=== PATIENT | female | born 1975 | race Caucasian/White ===

== ENCOUNTER 2024-07-02 22:22 | Outpatient (CLI) | payer OTHER, SELFPAY | END 2024-07-02 22:23 | disposition home or self-care (01) | LOC: AMB 07-05 11:03 | PROVIDERS: Visit Provider Family Medicine | DX: R10.9 Unspecified abdominal pain (principal); R07.89 Other chest pain; R11.10 Vomiting, unspecified | CPT/HCPCS: A0425; A0427 ==

== ENCOUNTER 2024-07-02 23:16 | Inpatient (IN) | payer OTHER, SELFPAY ==
--- OUTSIDE RECORDS SUMMARY | 2006-06-24 10:21 | XMS_ITS | Continuity of Care Document ---
Author Organization GIN Torres Address [address] [facility] [address] [place] [address] Phone Care Team Providers Care Test Examiner Name Role Phone Elizabeth Wang PA-C Unavailable [...] Offic/outpt E&m Estab Low-mod GIN Torres, [address] [facility] [address], [place], [id number], tel:[phone] [facility] No Information Felipe Johnson. [address] [facility] [address], [place], [address], [place]. tel:[phone] Referring Provider: Shaun Berman, [address] [place], [address]. tel:[phone] Offic/outpt E&m Estab Minor 10 GIN Torres, [address] [facility] [address], [place], [id number], tel:[phone] [facility] No Information [address] River [address]. [address] [facility] [place], [facility], . tel:[phone] Referring Provider: TUTU Posada, [address] [facility] [address] [facility] [address], [place], [place], [address], tel:[phone] [facility] No Information 7 River Dunn. [address] , [place], [place], [facility], . tel:[phone] Referring Provider: DARIO BRUCE Offic Cons New/estab Mod-hi 60 Brian [facility], [address], [place], [place], [id number], tel:[phone] [facility] No Information 7 Felipe Johnson. [address] [facility], [address], [place], [address], . tel:[phone] Referring Provider: DARIO BRUCE Family History Family Member Type Diagnosis Age At Onset No Information Payers Payer name Insurance type Covered alliance party ID Authoriza tion(s) [employer] [id number] Social History Type Description Quantity Date Captured [...]
[2024-07-02 23:22] VITALS: BP 114/96; PULSE 68; RESP 16; TEMP 36; O2SAT 94; BMI 30.1
[2024-07-02 23:36] VITALS: RESP 16; O2SAT 89
--- NOTE | 2024-07-02 23:37 | ED_ITS ---
HPI - General Adult General Chief complaint: Abdominal Pain <Rosy Mosley MD - Last Filed: 07/07/24 08:51> Stated complaint: abdominal pain <Rosy Mosley MD - Last Filed: 07/07/24 08:51> Time Seen by Provider: 07/02/24 23:29 <Rosy Mosley MD - Last Filed: 07/07/24 08:51> Source: patient <Rosy Mosley MD - Last Filed: 07/07/24 08:51> Mode of arrival: ambulatory <Rosy Mosley MD - Last Filed: 07/07/24 08:51> Limitations: no limitations <Rosy Mosley MD - Last Filed: 07/07/24 08:51> History of Present Illness HPI narrative: 49-year-old female presenting via EMS secondary to abdominal pain. Patient states she was sitting at home doing nothing approximately 2 hours ago when she developed acute left-sided abdominal pain that came out of nowhere. She describes it as a 10/10. Per EMS the patient was screaming when they arrived and when they tried to move her she had a hypotensive episode with syncope. In the ambulance patient received 100 mcg of fentanyl and 1 mg of Versed. She is now sleepy but arousable. Answers most questions with yes or n o. States that the pain is located in the left-sided the abdomen. Nothing makes it better or worse. She states that [facility] until this happen. Last bowel movement was today and was normal. She vomited after the pain started x2. Denies recent illness. No fevers or chills. No dysuria increased urinary frequency or urgency. Patient states that she feels short of breath. Denies chest pain. States that it hurts to take deep breaths. She denies any recent traveling, is vomit any hormone therapy or control, denies any recent surgery. Denies any personal or family history of blood clots. <Rosy Mosley MD - Last Filed: 07/07/24 08:51> Related Data Home medications: Home Medications ?Medication ?Instructions ?Recorded ?Confirmed No Known Home Medications 07/02/24 05/05/04 <Rosy Mosley MD - Last Filed: 07/07/24 08:51> Allergies/adverse reactions: Allergies Allergy/AdvReac Type Severity Reaction Status Date / Time clarithromycin (From Biaxin) Allergy Verified 07/03/24 02:03 gluten Allergy Verified 07/03/24 02:03 <Rosy Mosley MD - Last Filed: 07/07/24 08:51> Review of Systems Status of ROS: Reports: 10 or more systems reviewed and unremarkable except as noted in History and below <Rosy Mosley MD - Last Filed: 07/07/24 08:51> [facility] Social History: Social History Smoking Status: Never smoker Do you use any of these nicotine containing products: None Second hand tobacco smoke exposure: No How often do you have a drink containing alcohol: never How often do you have six or more drinks on one occasion: Never AUDIT-C Alcohol total score: 0 Non-prescribed substance use: denies use service: No <Rosy Mosley MD - Last Filed: 07/07/24 08:51> Exam Narrative: Exam Narrative: Well-nourished well-developed patient, sleepy, eyes closed. Alert and oriented x3. Answers questions appropriately. HEENT: Normocephalic atraumatic. Pupils are equally round reactive to light. Extraocular muscles are intact. Conjunctivae are moist without any icterus not ed. Moist mucous membranes. Very poor dentition. Film over her tongue. Posterior pharynx is normal. Neck is soft without any lymphadenopathy or thyromegaly. No masses are appreciated. Cardiovascular: Heart is regular rate and rhythm S1 and S2 are present without any murmurs. Lungs: Clear to auscultation bilaterally no wheezes rhonchi or rales are appreciated. Patient takes deep breaths without any discomfort. Abdomen: Soft and nondistended with normal bowel sounds. Patient screams with gentle touch to the epigastric and left upper quadrant. She complains of discomfort in the periumbilical suprapubic and right and left lower quadrants as well. States that the right upper quadrant does not bother her. Extremities: Bilateral lower extremities are without edema. Skin: Well perfused. <Rosy Mosley MD - Last Filed: 07/07/24 08:51> Const: Vital Signs, click to edit/add: Vital Signs - 24 hr 07/02/24 23:22 07/02/24 23:36 07/02/24 23:54 Temperature 96.8 F L Pulse Rate Pulse Rate [Pulse Oximeter] 68 Respiratory Rate 16 16 Blood Pressure Blood Pressure [Le ft Upper Arm] 114/96 H Pulse Oximetry 94 89 95 Oxygen Delivery Me thod Room Air Room Air Oxygen Flow Rate 2 07/03/24 02:35 Temperature Pulse Rate 84 Pulse Rate [Pulse Oximeter] Respiratory Rate 16 Blood Pressure 115/66 Blood Pressure [Le ft Upper Arm] Pulse Oximetry 92 Oxygen Delivery Me thod Oxygen Flow Rate <Rosy Mosley MD - Last Filed: 07/07/24 08:51> Vital Signs, click to edit/add: Vital Signs - 24 hr 07/02/24 23:22 07/02/24 23:36 07/02/24 23:54 Temperature 96.8 F L Pulse Rate Pulse Rate [Pulse Oximeter] 68 Respiratory Rate 16 16 Blood Pressure Blood Pressure [Le ft Upper Arm] 114/96 H Pulse Oximetry 94 89 95 Oxygen Delivery Me thod Room Air Room Air Oxygen Flow Rate 2 07/03/24 02:35 Temperature Pulse Rate 84 Pulse Rate [Pulse Oximeter] Respiratory Rate 16 Blood Pressure 115/66 Blood Pressure [Le ft Upper Arm] Pulse Oximetry 92 Oxygen Delivery Me thod Oxygen Flow Rate <Vitaliy Lawler MD - Last Filed: 07/03/24 04:09> Course Course ED Course: IV is established and 1 L of normal saline is ordered. Labs are drawn. At this time patient's care will be transferred to oncoming physician. <Rosy Mosley MD - Last Filed: 07/07/24 08:51> Reevaluation(s) Reevaluation #1: Patient signed out to Dr. Lawler at midnight on 07/03/2024. He is assuming care. Labs show white count of 13. CT is ordered but not resulted yet. Patient presented with severe abrupt onset left upper quadrant abdominal pain. Was having excruciating pain at home and called EMS. Was syncopal when EMS arrived (thought to be vasovagal). Received 100 mcg of fentanyl and 1 mg Versed for pain per EMS and arrived here with drowsiness and needing nasal cannula. In review of past medical record I see that she was hospitalized about 8 years ago in 2017 at [facility] in [place]. According to those records she has a history of tobacco use, gastritis, migraine headaches. She had an EGD that showed esophagitis and gastritis. 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 EGD note said she had mildly severe esophagitis with no bleeding. There was stigmata of recent bleeding. She also had edema and inflammation in the her stomach and entire duodenum. Lab work came back with a white count of 13.4. Hemoglobin normal at 15.0. Platelet count 281. Differential on the white count showed 59% neutrophils, 33% lymphocytes. D-dimer was abnormal at 0.83. Dr. Mosley had ordered a PE protocol chest CT. Metabolic profile showed hypokalemia with potassium of 2.9 but normal kidney function, normal bicarb, normal sodium. Venous lactic was normal. Juan Luis cium normal. LFTs are normal. Lipase is normal at 54. CRP was less than 0.5. Salicylate, acetaminophen, alcohol levels undetectable. Patient was sent to CT. Dr. Lawler reviewed the images as she was coming back from CT. By my read I think it does show inflammation of the gastric wall and the proximal duodenum. This seems to be a lot of inflammation or possibly fluid around the duodenum. Also a small bubble of free air just anterior to the ventral wall of the stomach near the tip of the liver. She was having recurrence of pain. Dr. Lawler ordered Dilaudid for pain control . Formal read from Radiology came back showing duodenitis and gastritis but did not comment on the free air. Dr. Lawler called Radiology and discussed with the reading radiologist. He reviewed the images and agrees that there is in fact a perforation. I reviewed the imaging findings with the patient and her boyfriend. They verbalized her understanding. She is still uncomfortable but is better after Dilaudid. When we discussed her past medical history says she says she has celiac disease. When I mention her previous admission for gastritis and duodenitis in 2018, she does have a distant recollection of that. She does not really think that she has ongoing trouble with stomach acid. She is not on any prescription stomach acid medicines and does not take any [id number]. Dr. Lawler ordered IV antibiotics and proton pump inhibitor. He contacted General surgery, Dr. Harris. Dr. Harris reviewed the CT images and agrees that this is approved ulcer. Based on the patient's imaging, labs, presentation with severe pain, she does think the patient needs to go to the OR. Patient will be going to the OR here in [facility]. Past surgical history includes hysterectomy and laparoscopy. She last ate at about 8:00 p.m. [facility] with cheese and crackers. Dr. Lawler contacted the overnight hospitalist, Dr. Bethea for medical management after operation. <Vitaliy Lawler MD - Last Filed: 07/03/24 04:09> Vital Signs Vital signs: Initial Vital Signs Temperature 96.8 F L 07/02/24 23:22 Temperature Source Temporal Artery Scan 07/02/24 23:22 Pulse Rate 68 07/02/24 23:22 Pulse Rhythm Regular 07/02/24 23:22 Respiratory Rate 16 07/02/24 23:22 Blood Pressure 114/96 H 07/02/24 23:22 Blood Pressure Mean 102 07/02/24 23:22 Blood Pressure Position Supine 07/02/24 23:22 Pulse Oximetry 94 07/02/24 23:22 Oxygen Delivery Method Room Air 07/02/24 23:22 Vital Signs Temperature 96.8 F L 07/02/24 23:22 Pulse Rate 68 07/02/24 23:22 Respiratory Rate 16 07/02/24 23:22 Blood Pressure 114/96 H 07/02/24 23:22 Pulse Oximetry 94 07/02/24 23:22 Oxygen Delivery Method Room Air 07/02/24 23:22 Temperature 97.8 F 07/07/24 06:22 Pulse Rate 95 07/07/24 01:39 Respiratory Rate 20 07/07/24 01:39 Blood Pressure 147/81 H 07/07/24 01:39 Pulse Oximetry 91 07/07/24 01:39 Oxygen Delivery Method Nasal Cannula 07/07/24 01:39 Oxygen Flow Rate 1.0 07/07/24 01:39 <Rosy Mosley MD - Last Filed: 07/07/24 08:51> Initial Vital Signs Temperature 96.8 F L 07/02/24 23:22 Temperature Source Temporal Artery Scan 07/02/24 23:22 Pulse Rate 68 07/02/24 23:22 Pulse Rhythm Regular 07/02/24 23:22 Respiratory Rate 16 07/02/24 23:22 Blood Pressure 114/96 H 07/02/24 23:22 Blood Pressure Mean 102 07/02/24 23:22 Blood Pressure Position Supine 07/02/24 23:22 Pulse Oximetry 94 07/02/24 23:22 Oxygen Delivery Method Room Air 07/02/24 23:22 Vital Signs Temperature 96.8 F L 07/02/24 23:22 Pulse Rate 68 07/02/24 23:22 Respiratory Rate 16 07/02/24 23:22 Blood Pressure 114/96 H 07/02/24 23:22 Pulse Oximetry 94 07/02/24 23:22 Oxygen Delivery Method Room Air 07/02/24 23:22 Temperature 97.8 F 07/07/24 06:22 Pulse Rate 95 07/07/24 01:39 Respiratory Rate 20 07/07/24 01:39 Blood Pressure 147/81 H 07/07/24 01:39 Pulse Oximetry 91 07/07/24 01:39 Oxygen Delivery Method Nasal Cannula 07/07/24 01:39 Oxygen Flow Rate 1.0 07/07/24 01:39 <Vitaliy Lawler MD - Last Filed: 07/03/24 04:09> Medications Administered Medications: Generic Name Dose Route Start Last Admin Trade Name Freq PRN Reason Stop Dose Admin Hydrocodone Bitart/Acetaminophen 1 - 2 tab 07/03/24 06:31 07/07/24 06:24 Hydrocodone-Acetamin 5-325 Mg 1 Tab PO 1 tab Q4H PRN Administration Pain Enoxaparin Sodium 40 mg 07/04/24 21:00 07/06/24 21:25 Enoxaparin 40 Mg/0.4 Ml Inj SUBCUT 40 mg HS JOSELIN Administration Hydromorphone HCl 0.1 - 0.5 mg 07/03/24 06:31 07/04/24 18:31 Hydromorphone 0.5 Mg/0.5 Ml Inj IVP 0.3 mg Q2H PRN Administration Pain Lactated Ringer's 1,000 mls @ 125 mls/hr 07/03/24 13:05 07/07/24 01:43 Lactated Ringers 1000 Ml IV 125 mls/hr .Q8H JOSELIN Administration Piperacillin Sod/Tazobactam 100 mls @ 100 mls/hr 07/05/24 20:00 07/07/24 08:33 Sod 3.375 gm/ Sodium Chloride IVPB 200 mls/hr Q6H JOSELIN Administration Nicotine 1 patch 07/03/24 15:00 07/06/24 15:01 Nicotine 21 Mg Patch TRANSDERMA 1 patch Q24H JOSELIN Administration Ondansetron HCl 4 - 8 mg 07/03/24 06:31 07/04/24 09:54 Ondansetron 2 Mg/Ml Inj IVP 4 mg Q8H PRN Administration Nausea And Vomiting Pantoprazole Sodium 40 mg 07/03/24 09:00 07/07/24 08:31 Pantoprazole Sodium 40 Mg Inj IVP 40 mg BID JOSELIN Administration Sodium Chloride 250 ml 07/04/24 13:15 07/06/24 14:14 0.9 % Sodium Chloride 250 Ml IV 250 ml Q24H JOSELIN Administration Sodium Chloride 5 ml 07/06/24 21:00 07/07/24 08:31 Sodium Chloride 0.9 % (Flush) 10 Ml Syringe IVF 5 ml BID JOSELIN Administration Discontinued Medications Generic Name Dose Route Start Last Admin Trade Name Freq PRN Reason Stop Dose Admin Hydromorphone HCl 0.5 mg 07/03/24 00:45 07/03/24 02:22 Hydromorphone 0.5 Mg/0.5 Ml Inj IVP 0.5 mg Q1H PRN Administration Pain Sodium Chloride 1,000 mls @ 1,000 mls/hr 07/02/24 23:45 07/03/24 01:53 0.9 % Sodium Chloride 1000 Ml IV 07/03/24 00:44 Infused .Q1H JOSELIN Infusion Potassium Chloride 10 meq in 100 mls @ 100 mls/hr 07/03/24 01:00 07/03/24 06:28 Potassium Chloride IVPB 07/03/24 03:29 Infused Q90M JOSELIN Infusion Piperacillin Sod/Tazobactam 100 mls @ 200 mls/hr 07/03/24 01:30 07/03/24 03:03 Sod 4.5 gm/ Sodium Chloride IVPB 07/03/24 01:31 Infused ONCE ONE Infusion Lactated Ringer's 1,000 mls @ 100 mls/hr 07/03/24 03:00 07/04/24 08:04 Lactated Ringers 1000 Ml IV Infused .Q10H JOSELIN Infusion Lactated Ringer's 1,000 mls @ 100 mls/hr 07/03/24 06:31 07/04/24 08:04 Lactated Ringers 1000 Ml IV Infused .Q10H JOSELIN Infusion Piperacillin Sod/Tazobactam 100 mls @ 100 mls/hr 07/03/24 07:00 07/05/24 22:03 Sod 3.375 gm/ Sodium Chloride IVPB Not Given Q6H JOSELIN Potassium Chloride 10 meq in 100 mls @ 100 mls/hr 07/03/24 13:30 07/03/24 21:37 Potassium Chloride IVPB 07/03/24 18:59 Infused Q90M JOSELIN Infusion Pantoprazole Sodium 80 mg 07/03/24 01:30 07/03/24 02:07 Pantoprazole Sodium 40 Mg Inj IVP 07/03/24 01:31 80 mg ONCE ONE Administration Piperacillin Sod/Tazobactam Sod 3.375 gm 07/03/24 05:51 07/03/24 07:43 Piperacillin/Tazobactam 3.375 Gm Inj IVPB 07/03/24 05:52 Not Given ONCE ONE Potassium Chloride 20 meq 07/03/24 00:30 07/03/24 02:32 Potassium Chloride 10 Meq Capsule Er PO 07/03/24 00:31 Not Given ONCE ONE <Rosy Mosley MD - Last Filed: 07/07/24 08:51> Generic Name Dose Route Start Last Admin Trade Name Freq PRN Reason Stop Dose Admin Hydrocodone Bitart/Acetaminophen 1 - 2 tab 07/03/24 06:31 07/07/24 06:24 Hydrocodone-Acetamin 5-325 Mg 1 Tab PO 1 tab Q4H PRN Administration Pain Enoxaparin Sodium 40 mg 07/04/24 21:00 07/06/24 21:25 Enoxaparin 40 Mg/0.4 Ml Inj SUBCUT 40 mg HS JOSELIN Administration Hydromorphone HCl 0.1 - 0.5 mg 07/03/24 06:31 07/04/24 18:31 Hydromorphone 0.5 Mg/0.5 Ml Inj IVP 0.3 mg Q2H PRN Administration Pain Lactated Ringer's 1,000 mls @ 125 mls/hr 07/03/24 13:05 07/07/24 01:43 Lactated Ringers 1000 Ml IV 125 mls/hr .Q8H JOSELIN Administration Piperacillin Sod/Tazobactam 100 mls @ 100 mls/hr 07/05/24 20:00 07/07/24 08:33 Sod 3.375 gm/ Sodium Chloride IVPB 200 mls/hr Q6H JOSELIN Administration Nicotine 1 patch 07/03/24 15:00 07/06/24 15:01 Nicotine 21 Mg Patch TRANSDERMA 1 patch Q24H JOSELIN Administration Ondansetron HCl 4 - 8 mg 07/03/24 06:31 07/04/24 09:54 Ondansetron 2 Mg/Ml Inj IVP 4 mg Q8H PRN Administration Nausea And Vomiting Pantoprazole Sodium 40 mg 07/03/24 09:00 07/07/24 08:31 Pantoprazole Sodium 40 Mg Inj IVP 40 mg BID JOSELIN Administration Sodium Chloride 250 ml 07/04/24 13:15 07/06/24 14:14 0.9 % Sodium Chloride 250 Ml IV 250 ml Q24H JOSELIN Administration Sodium Chloride 5 ml 07/06/24 21:00 07/07/24 08:31 Sodium Chloride 0.9 % (Flush) 10 Ml Syringe IVF 5 ml BID JOSELIN Administration Discontinued Medications Generic Name Dose Route Start Last Admin Trade Name Freq PRN Reason Stop Dose Admin Hydromorphone HCl 0.5 mg 07/03/24 00:45 07/03/24 02:22 Hydromorphone 0.5 Mg/0.5 Ml Inj IVP 0.5 mg Q1H PRN Administration Pain Sodium Chloride 1,000 mls @ 1,000 mls/hr 07/02/24 23:45 07/03/24 01:53 0.9 % Sodium Chloride 1000 Ml IV 07/03/24 00:44 Infused .Q1H JOSELIN Infusion Potassium Chloride 10 meq in 100 mls @ 100 mls/hr 07/03/24 01:00 07/03/24 06:28 Potassium Chloride IVPB 07/03/24 03:29 Infused Q90M JOSELIN Infusion Piperacillin Sod/Tazobactam 100 mls @ 200 mls/hr 07/03/24 01:30 07/03/24 03:03 Sod 4.5 gm/ Sodium Chloride IVPB 07/03/24 01:31 Infused ONCE ONE Infusion Lactated Ringer's 1,000 mls @ 100 mls/hr 07/03/24 03:00 07/04/24 08:04 Lactated Ringers 1000 Ml IV Infused .Q10H JOSELIN Infusion Lactated Ringer's 1,000 mls @ 100 mls/hr 07/03/24 06:31 07/04/24 08:04 Lactated Ringers 1000 Ml IV Infused .Q10H JOSELIN Infusion Piperacillin Sod/Tazobactam 100 mls @ 100 mls/hr 07/03/24 07:00 07/05/24 22:03 Sod 3.375 gm/ Sodium Chloride IVPB Not Given Q6H JOSELIN Potassium Chloride 10 meq in 100 mls @ 100 mls/hr 07/03/24 13:30 07/03/24 21:37 Potassium Chloride IVPB 07/03/24 18:59 Infused Q90M JOSELIN Infusion Pantoprazole Sodium 80 mg 07/03/24 01:30 07/03/24 02:07 Pantoprazole Sodium 40 Mg Inj IVP 07/03/24 01:31 80 mg ONCE ONE Administration Piperacillin Sod/Tazobactam Sod 3.375 gm 07/03/24 05:51 07/03/24 07:43 Piperacillin/Tazobactam 3.375 Gm Inj IVPB 07/03/24 05:52 Not Given ONCE ONE Potassium Chloride 20 meq 07/03/24 00:30 07/03/24 02:32 Potassium Chloride 10 Meq Capsule Er PO 07/03/24 00:31 Not Given ONCE ONE <Vitaliy Lawler MD - Last Filed: 07/03/24 04:09> Medical Decision Making Lab Data Labs: Lab Results 07/02/24 07/02/24 Range/Units 23:25 23:36 WBC 13.45 H (4.50-11.00) K/uL RBC 4.76 (4.00-5.20) m/uL Hgb 15.0 (12.0-16.0) gm/dL Hct 43.6 (33.0-51.0) % MCV 92 (80-100) fL MCH 32 (26-34) pg MCHC 34 (32-36) gm/dL RDW Coeff of Pati 13.0 (11.5-15.5) % Plt Count 281 (140-440) K/uL Neut % (Auto) 59.3 (42.0-72.0) % Lymph % (Auto) 33.3 (20-44) % Navarro % (Auto) 5.7 (0.0-11.0) % Eos % (Auto) 0.8 (0.0-7.0) % Baso % (Auto) 0.2 (0.0-3.0) % Neut # (Auto) 8.00 H (1.7-7.0) K/uL Lymph # (Auto) 4.50 H (0.90-2.90) K/uL Navarro # (Auto) 0.80 (0.00-0.90) K/UL Eos # (Auto) 0.10 (0.00-0.50) K/uL Baso # (Auto) 0.00 (0.00-0.30) K/uL Abs Immat Gran (auto) 0.10 (0.00-0.30) K/uL Imm/Tot Granulo (auto) 0.7 % Diff Slide Review Acceptable Review (Acceptable) D-Dimer Quant (PE/DVT) 0.83 H (0.00-0.50) ug/ml Sodium 139 (135-149) mmol/L Potassium 2.9 L* (3.6-5.1) mmol/L Chloride 107 (96-114) mmol/L Carbon Dioxide 26 (20-32) mmol/L Anion Gap 6 L (7-15) mEq/L BUN 17 (7-30) mg/dL Creatinine 0.9 (0.5-1.5) mg/dL Estimated Creat Clear 61.17 Estimated GFR 77 ml/min Glucose 134 H (60-115) mg/dL Lactate 1.9 (0.5-1.9) mmol/L Calcium 10.3 (8.4-10.6) mg/dL Magnesium 1.3 L (1.5-2.6) mg/dL Total Bilirubin 0.4 (0.1-1.5) mg/dL Direct Bilirubin 0.3 (0.0-0.5) mg/dL AST 28 (12-35) U/L ALT 25 (4-35) U/L Alkaline Phosphatase 74 (40-150) U/L Troponin I < 0.01 (0.01-0.04) ng/mL C-Reactive Protein < 0.5 L (0.5-1.0) mg/dL Total Protein 6.7 (6.0-8.3) g/dL Albumin 4.0 (3.3-5.0) g/dL Lipase 54 (23-300) U/L Salicylates 7.6 (1.0-10) mg/dL Acetaminophen < 10.0 (10.0-30.0) ug/mL Ethyl Alcohol < 0.01 (0.01-0.03) % POC Troponin I 0.00 L (0.01-0.04) ng/ml <Rosy Mosley MD - Last Filed: 07/07/24 08:51> Lab Results 07/02/24 07/02/24 Range/Units 23:25 23:36 WBC 13.45 H (4.50-11.00) K/uL RBC 4.76 (4.00-5.20) m/uL Hgb 15.0 (12.0-16.0) gm/dL Hct 43.6 (33.0-51.0) % MCV 92 (80-100) fL MCH 32 (26-34) pg MCHC 34 (32-36) gm/dL RDW Coeff of Pati 13.0 (11.5-15.5) % Plt Count 281 (140-440) K/uL Neut % (Auto) 59.3 (42.0-72.0) % Lymph % (Auto) 33.3 (20-44) % Navarro % (Auto) 5.7 (0.0-11.0) % Eos % (Auto) 0.8 (0.0-7.0) % Baso % (Auto) 0.2 (0.0-3.0) % Neut # (Auto) 8.00 H (1.7-7.0) K/uL Lymph # (Auto) 4.50 H (0.90-2.90) K/uL Navarro # (Auto) 0.80 (0.00-0.90) K/UL Eos # (Auto) 0.10 (0.00-0.50) K/uL Baso # (Auto) 0.00 (0.00-0.30) K/uL Abs Immat Gran (auto) 0.10 (0.00-0.30) K/uL Imm/Tot Granulo (auto) 0.7 % Diff Slide Review Acceptable Review (Acceptable) D-Dimer Quant (PE/DVT) 0.83 H (0.00-0.50) ug/ml Sodium 139 (135-149) mmol/L Potassium 2.9 L* (3.6-5.1) mmol/L Chloride 107 (96-114) mmol/L Carbon Dioxide 26 (20-32) mmol/L Anion Gap 6 L (7-15) mEq/L BUN 17 (7-30) mg/dL Creatinine 0.9 (0.5-1.5) mg/dL Estimated Creat Clear 61.17 Estimated GFR 77 ml/min Glucose 134 H (60-115) mg/dL Lactate 1.9 (0.5-1.9) mmol/L Calcium 10.3 (8.4-10.6) mg/dL Magnesium 1.3 L (1.5-2.6) mg/dL Total Bilirubin 0.4 (0.1-1.5) mg/dL Direct Bilirubin 0.3 (0.0-0.5) mg/dL AST 28 (12-35) U/L ALT 25 (4-35) U/L Alkaline Phosphatase 74 (40-150) U/L Troponin I < 0.01 (0.01-0.04) ng/mL C-Reactive Protein < 0.5 L (0.5-1.0) mg/dL Total Protein 6.7 (6.0-8.3) g/dL Albumin 4.0 (3.3-5.0) g/dL Lipase 54 (23-300) U/L Salicylates 7.6 (1.0-10) mg/dL Acetaminophen < 10.0 (10.0-30.0) ug/mL Ethyl Alcohol < 0.01 (0.01-0.03) % POC Troponin I 0.00 L (0.01-0.04) ng/ml <Vitaliy Lawler MD - Last Filed: 07/03/24 04:09> Discharge Plan Discharge Clinical Impression: Perforated gastric ulcer, Duodenitis <Rosy Mosley MD - Last Filed: 07/07/24 08:51> Patient Disposition: XFER to OR <Rosy Mosley MD - Last Filed: 07/07/24 08:51> Condition: Guarded <Rosy Mosley MD - Last Filed: 07/07/24 08:51>
--- OUTSIDE RECORDS SUMMARY | 2024-07-02 23:47 | XMS_ITS | Clinical Summary ---
Author Organization [facility] Address [address] [place] [id number] Care Team Providers Care Supervisor Fabrication And Assembly Name Role Phone Vitaliy Olivas MD Primary Care Provider [phone] Allergies Active Allergy Reactions Criticality Noted Date Comments Clarithromycin Shortness Of Breath 04/24/2010 Medications ondansetron (ZOFRAN ODT) 4 mg disintegrating tabletIndications:E sophagitis Place 1 tablet on the tongue every 6 hours if needed. 15 tablet 1 7 Active SUMAtriptan (IMITREX) 25 mg tabletIndications:M igraine without status migrainosus, not intractable, unspecified migraine type Take 1 tablet by mouth every 2 hours if needed for Migraine. Give at minimum 2hrs apart. Max Dose: 200mg per 24hrs. 15 tablet 1 7 Active pantoprazole (PROTONIX) 40 mg delayed-release tabletIndications:E sophagitis,Gastriti s, presence of bleeding unspecified, unspecified chronicity, unspecified gastritis type Take 1 tablet by mouth 2 times daily before meals. 60 tablet 7 Active pyridoxine, vitamin B6, (VITAMIN B6) 100 mg tabletIndications:M igraine without status migrainosus, not intractable, unspecified migraine type Take 1 tablet by mouth once daily. 30 tablet 7 Active Active Problems Problem Noted Date Diagnosed Date Acute hypokalemia 06/29/2016 Hematemesis with nausea 06/29/2016 Obesity (BMI 30.0-34.9) 06/29/2016 Smoking 06/29/2016 Epigastric pain 06/29/2016 Erosive esophagitis 06/29/2016 Acute alcoholic gastritis 06/29/2016 Duodenitis 06/29/2016 Family History Medical History Relation Name Comments SEA disease Father Heart Disease Father Relation Name Status Comments Father Social History Tobacco Use Types Packs/Day Years Used Date Smoking Tobacco: Every Day Cigarettes Tobacco Cessation:Ready to Q uit: No; Counseling Given: No Alcohol Use Standard Drinks/Week Comments Yes 0 (1 standard drink = 0.6 oz pur e alcohol) Occasional Comments No Sex and Gender Information Value Date Recorded Sex Assigned at Not on file Legal Sex Female 6:51 AM [employer] Gender Identity Not on file Sexual Orientation Not on file Obstetrics History Last Filed Vital Signs Vital Sign Reading Time Taken Comments Blood Pressure 177/112 06/30/2016 8:06 AM CDT Pulse 75 06/30/2016 8:06 AM CDT Temperature 36.5 C (97.7 F) 06/30/2016 8:06 AM CDT Respiratory Rate 16 06/30/2016 8:06 AM CDT Oxygen Saturation 92% 06/30/2016 8:06 AM CDT Inhaled Oxygen Concentration - - Weight 79.4 kg (175 lb) 06/29/2016 11:17 PM CDT Height 160 cm (5' 3) 06/29/2016 11:17 PM CDT Body Mass Index 31 06/29/2016 11:17 PM CDT Plan of Treatment Health Maintenance Due Date Last Done Comments Tdap 1984 Depression screening for age 12+ 1985 HIV for age 15-65 1988 Hepatitis C screening for age 18-79 05/11/1991 Hepatitis B series for 19+ ( 1 of 3 - 19+ 3-dose series) 1992 Tetanus booster 1993 Pap test for age 21-65 1994 BMI (ht and wt on same day) for age 18+ 06/29/2017 0 06/29/2016, 06/28/2016 Colonoscopy through age 75 2018 Lipids for age 45-75 2018 Mammogram for age 45-75 2018 Pneumococcal series for age 50+ (1 of 1 - PCV) 05/11/2023 Zoster (shingles) series for age 50+ (1 of 2) 05/11/2023 COVID-19 vaccine series ( - 2023- season) 2023 Influenza Vaccine (Season Ended) 2024 Insurance [employer] Advance Directives * Full Code (Latest Code Status on File) Date Activated Date Inactivated Comments 06/30/2016 12:08 AM 06/30/2016 1:16 PM * Full Code Date Activated Date Inactivated Comments 06/29/2016 3:37 AM 06/29/2016 11:26 PM Care Teams Supervisor Fabrication And Assembly Relationship Specialty Start Date End Date Vitaliy Olivas MD PCP - General Family Practice 04/14/12
--- OUTSIDE RECORDS SUMMARY | 2024-07-02 23:47 | XMS_ITS | Clinical Summary ---
Author Organization [facility] Address [address] [place] [id number] Care Team Providers Care Composition Teacher Name Role Phone [facility] Primary Care [facility] er Michael Franco MD Unavailable [phone] Allergies Active Allergy Reactions Criticality Noted Date Comments Clarithromycin Other (See Comments),Shortness Of Breath High 04/24/2010 Shortness of breath Leuprolide Other (See Comments) 01/24/2016 Shortness of breath and hives Medications benzonatate (TESSALON) 100 MG capsuleIndicatio ns:Infection due to 2019 novel coronavirus Take 1-2 capsules by mouth up to 3 times daily as needed for cough. 30 capsule 3 Active albuterol (PROAIR HFA/PROVENTIL HFA/VENTOLIN HFA) 108 (90 Base) MCG/ACT inhalerIndicatio ns:Infection due to 2019 novel coronavirus Inhale 2 puffs into the lungs every 4 hours as needed for shortness of breath or wheezing 18 g 3 Active Active Problems Problem Noted Date Diagnosed Date Acute alcoholic gastritis 06/29/2016 Nicotine dependence, unspecified, uncomplicated 06/29/2016 Immunizations Immunization Administration Dates Next Due DT (PEDS <7y) 11/09/1992 Influenza (IIV3) PF 12/01/2013 Nasal Influenza Vaccine 2-49 (FluMist) 3 Social History Tobacco Use Types Packs/Day Years Used Date Smoking Tobacco: Every Day Smokeless Tobacco: Never Alcohol Use Standard Drinks/Week Comments Yes 0 (1 standard drink = 0.6 oz pur e alcohol) Adolescent Education Answer Date Record ed Getting School Help Needed Not on file 11/17 Comments No Sex and Gender Information Value Date Recorded Sex Assigned at Not on file Legal Sex Female 3:14 AM ICD 9 CODER Gender Identity Not on file Sexual Orientation Not on file Last Filed Vital Signs Vital Sign Reading Time Taken Comments Blood Pressure 120/66 07/17/2021 5:47 PM CDT Pulse 92 07/17/2021 5:47 PM CDT Temperature 36.8 C (98.3 F) 07/17/2021 5:47 PM CDT Respiratory Rate 16 07/17/2021 5:47 PM CDT Oxygen Saturation 96% 07/17/2021 5:47 PM CDT Inhaled Oxygen Concentration - - Weight 86.2 kg (190 lb) 07/17/2021 5:47 PM CDT Height - - Body Mass Index - - Plan of Treatment Health Maintenance Due Date Last Done Comments ADVANCE CARE PLANNING 1973 ANNUAL REVIEW OF HM ORDERS 1973 CT COLONOGRAPHY 1973 FIT 1973 FLEX SIG 1973 MAMMO SCREENING 1973 sDNA (Cologuard) 1973 YEARLY PREVENTIVE VISIT 1976 HIV SCREENING 1988 HEPATITIS C SCREENING 05/11/1991 HEPATITIS B IMMUNIZATION (1 of 3 - 19+ 3-dose series) 1992 Pneumococcal Vaccine: 50+ Years (1 of 2 - PCV) 1992 PAP 1994 DTAP/TDAP/TD IMMUNIZATION (1 - Tdap) 1998 DIABETES SCREENING 04/19/2013 04/19/2010, 07/21/2009 LIPID 2013 LUNG CANCER SCREENING 05/11/2023 ZOSTER IMMUNIZATION (1 of 2) 05/11/2023 COVID-19 Vaccine (3 - 2023-2 5 season) 2023 01/05/2021, 05/18/2020 PHQ-2 (once per calendar year) 2024 INFLUENZA VACCINE (Season Ended) 2024 12/01/2013, 11/10/2012 COLONOSCOPY 07/27/2026 07/27/2016 COLORECTAL CANCER SCREENING 07/27/2026 HPV IMMUNIZATION Aged Out No longer e ligible based on patient's age to complete this topic MENINGITIS IMMUNIZATION Aged Out No l onger eligible based on patient's age to complete this topic Procedures Procedure Name Priority Date/Time Associated Diagnosis Comments BASIC METABOLIC PANEL STAT 04/19/2010 4:16 PM ICD 9 CODER from Last 3 Months or Most Recently Relevant to Health Maintenance Results * Basic metabolic panel (04/19/2010 4:16 PM ICD 9 CODER) Sodium 140 133 - 144 mmol/L MISYS Potassium 3.7 3.4 - 5.3 mmol/L MISYS Chloride 102 94 - 109 mmol/L MISYS Carbon Dioxide 28 20 - 32 mmol/L MISYS Glucose 89 60 - 99 mg/dL MISYS Urea Nitrogen 8 5 - 24 mg/dL MISYS Creatinine 0.91 0.52 - 1.04 mg/dL MISYS GFR Estimate 70 >60 mL/min/1.7 m2 MISYS GFR Estimate If Black 85 >60 mL/min/1.7 m2 MISYS Calcium 9.5 8.5 - 10.4 mg/dL MISYS Anion Gap 10 6 - 17 mmol/L MISYS 04/19/2010 4:16 PM ICD 9 CODER 04/19/2010 4:10 PM ICD 9 CODER us Saul Ceron MD LAB - BLOOD ORDERABLES An gonzales Result MISYS from Last 3 Months or Most Recently Relevant to Health Maintenance Insurance [facility] [employer]Creat[employer] Care Teams Composition Teacher Relationship Specialty Start Date End Date Clinic, [facility] [address] [place] [id number] PCP - General 07/07/19 Michael Franco MD [address] [place] [id number] Assigned PCP 07/19/21
[2024-07-02 23:53] LABS: Basophils Percent Auto 0.2 % (0.0-3.0); Eosinophils Percent Auto 0.8 % (0.0-7.0); Hematocrit 43.6 % (33.0-51.0); Immature Granulocytes Pct Auto 0.7 %; Lymphocytes Percent Auto 33.3 % (20-44); Mean Corpuscular HGB Conc 34 gm/dL (32-36); Mean Corpuscular Hemoglobin 32 pg (26-34); Mean Corpuscular Volume 92 fL (80-100); Monocytes Percent Auto 5.7 % (0.0-11.0); Neutrophils Percent Auto 59.3 % (42.0-72.0); Platelet Count* 281 K/uL (140-440); Red Blood Count 4.76 m/uL (4.00-5.20); Slide Review Reflex Yes; White Blood Count* 13.45 K/uL (4.50-11.00)
[2024-07-02 23:54] VITALS: O2SAT 95
[2024-07-02 23:55] LABS: Lactate* 1.9 mmol/L (0.5-1.9)
[2024-07-03] VITALS (23 sets, daily range): BP systolic 103–140; BP diastolic 60–87; PULSE 84–107; RESP 13–16; TEMP 35.9–36.6; O2SAT 82–103
--- NOTE | 2024-07-03 00:07 | CRLHL7_ITS ---
For Patients: As a result of the Century Cures Act, medical imaging exams and procedure reports are released immediately into your electronic medical record. You may view this report before your referring provider. If you have questions, please contact your health care provider. INDICATION: Severe left abdominal pain. TECHNIQUE: CT abdomen and pelvis acquired with 83 cc Isovue 370 IV contrast. COMPARISON: None. FINDINGS: Lower chest: Respiratory motion artifact limits evaluation of the lung bases. No definite acute abnormalities. Liver: Unremarkable. Normal in size and attenuation. No suspicious masses. Gallbladder and bile ducts: Cholelithiasis no biliary dilatation. Pancreas: Unremarkable. No mass or inflammation. Spleen: Unremarkable. Normal in size. No masses. Adrenal glands: Unremarkable. No nodules. Kidneys: Unremarkable. No suspicious masses, stones, or hydronephrosis. GI tract: Moderate wall thickening and mucosal hyperenhancement of the distal stomach and proximal duodenum with the superiorly projecting focal outpouching along the pyloric region which measures approximately 1.8 x 1.2 cm (4/53). The remainder of the bowel is normal in caliber without evidence of obstruction. Vasculature: Abdominal aorta is normal in caliber. Mesenteric arteries are patent. Lymph nodes: No lymphadenopathy. Peritoneum/Abdominal Wall: Unremarkable. No sign of mass or infiltration. No free air. Small volume free fluid. Pelvis: Unremarkable. Bones: Unremarkable for age. IMPRESSION: Moderate inflammatory changes of the distal stomach and proximal duodenum with a small focal outpouching along the pyloric region that measures 1.8 cm, favored to reflect peptic ulcer disease. There is small volume ascites, but no evident pneumoperitoneum to indicate a perforation. Please note that all CT scans at this facility use dose modulation, iterative reconstruction, and/or weight-based dosing when appropriate to reduce radiation dose to as low as reasonably achievable. Dictated by Conrad Rush MD @ 07/03/2024 1:24:11 AM (Electronically Signed)
[2024-07-03 00:08] LABS: Chloride* 107 mmol/L (96-114)
[2024-07-03 00:09] LABS: Sodium* 139 mmol/L (135-149)
[2024-07-03 00:11] LABS: Alanine Aminotransferase* 25 U/L (4-35); Anion Gap 6 mEq/L (7-15); Aspartate Amino Transferase* 28 U/L (12-35); Blood Urea Nitrogen* 17 mg/dL (7-30); Carbon Dioxide* 26 mmol/L (20-32); Creatinine* 0.9 mg/dL (0.5-1.5); Est. Creatinine Clearance* 61.17; Estimated Glomerular Filt Rate 77 ml/min
[2024-07-03 00:12] LABS: Alkaline Phosphatase* 74 U/L (40-150); Bilirubin Direct* 0.3 mg/dL (0.0-0.5); Bilirubin Total* 0.4 mg/dL (0.1-1.5); Calcium* 10.3 mg/dL (8.4-10.6); Glucose* 134 mg/dL (60-115); Lipase* 54 U/L (23-300); Salicylate* 7.6 mg/dL (1.0-10); Total Protein* 6.7 g/dL (6.0-8.3)
[2024-07-03 00:13] LABS: D Dimer Quantitative* 0.83 ug/ml (0.00-0.50)
[2024-07-03 00:15] LABS: Acetaminophen* < 10.0 ug/mL (10.0-30.0); C Reactive Protein* < 0.5 mg/dL (0.5-1.0); Ethanol* < 0.01 % (0.01-0.03)
[2024-07-03 00:16] LABS: Potassium* 2.9 mmol/L (3.6-5.1)
[2024-07-03] MEDS: 0.9 % SODIUM CHLORIDE 1000 ml 1,000 ML IV (00:50)
[2024-07-03] MEDS: HYDROmorphone 0.5 mg/0.5 ml inj IVP ×6 (00:50→20:32)
[2024-07-03 00:51] LABS: Troponin I* < 0.01 ng/mL (0.01-0.04)
[2024-07-03] MEDS: POTASSIUM CHLORIDE 10 MEQ/100 ML PIGGYBACK 100 MEQ IVPB ×6 (01:01→17:57)
[2024-07-03] MEDS: PANTOPRAZOLE SODIUM 40 MG INJ 80 MG IVP (02:07)
[2024-07-03] MEDS: PIPERACILLIN/TAZOBACTAM 4.5 GM in 0.9 % SODIUM CHLORIDE Mini-bag 100 ML IVPB (02:22)
--- NOTE | 2024-07-03 02:42 | P.GSHP_ITS ---
History of Present Illness History of Present Illness Date Seen: 07/03/24 Chief complaint: abdominal pain Narrative: Madhavi Bertrand is a 49 year old female who presented to the emergency department with sudden severe abdominal pain. The pain started shortly after 8:00 p.m. and came out of the blue. She has never had pain this worse. The pain is in the middle of her abdomen. She does report associated nausea and vomiting. No diarrhea or constipation. No fevers at home. She has a history of gastritis and duodenitis in 2018 with hospitalization and upper endoscopy performed at that time. She denies drinking alcohol. She is an everyday smoker. She does take a medication regularly for headaches. Her medical history is significant for celiac disease. She does not take medications on a daily basis. Her abdominal surgical history is positive for a hysterectomy. Review of Systems Status of ROS: Reports: 10 or more systems reviewed and unremarkable except as noted in History and below [facility] Social History Smoking Status: Never smoker Do you use any of these nicotine containing products: None Second hand tobacco smoke exposure: No How often do you have a drink containing alcohol: never How often do you have six or more drinks on one occasion: Never AUDIT-C Alcohol total score: 0 Non-prescribed substance use: denies use service: No Meds Home Medications and Allergies Home Medications ?Medication ?Instructions ?Recorded ?Confirmed ?Type No Known Home Medications 07/02/2406/11 History Allergies Allergy/AdvReac Type Severity Reaction Status Date / Time clarithromycin (From Biaxin) Allergy Verified 07/03/24 02:03 gluten Allergy Verified 07/03/24 02:03 Exam Narrative: Exam Narrative: General: Alert and oriented, is sleepy after getting pain medicine but able to consent. Nontoxic in appearance Respiratory: Equal breath rise, oxygenating well on 2 L through nasal cannula. CV: Well perfused, no tachycardia Abdomen: Soft, tender to palpation in the epigastric with guarding and rebound Const: Vital Signs, click to edit/add: Vital Signs - 24 hr 07/02/24 23:22 07/02/24 23:36 07/02/24 23:54 Temperature 96.8 F L Pulse Rate Pulse Rate [Pulse Oximeter] 68 Respiratory Rate 16 16 Blood Pressure Blood Pressure [Le ft Upper Arm] 114/96 H Pulse Oximetry 94 89 95 Oxygen Delivery Me thod Room Air Room Air Oxygen Flow Rate 2 07/03/24 02:35 Temperature Pulse Rate 84 Pulse Rate [Pulse Oximeter] Respiratory Rate 16 Blood Pressure 115/66 Blood Pressure [Le ft Upper Arm] Pulse Oximetry 92 Oxygen Delivery Me thod Oxygen Flow Rate Results Results Labs: Leukocytosis (13.4), potassium is low on BMP of 2.9, CRP less than 0.5. Troponin negative. D-dimer is elevated slightly at 0.[address] scan report/results: report reviewed and image reviewed Progress Note:A&P Assessment and plan (1) Perforated gastric ulcer: Status: Acute Assessment and Plan: Patient is a 49-year-old female who presents with sudden onset severe abdominal pain. Workup was obtained with evidence of leukocytosis and CT scan showing inflammation of the distal stomach, pylorus and duodenum. There is fluid around this area in a few foci of pneumoperitoneum indicating a perforation. On exam patient is peritoneal. Recommendations are to proceed to the operating room for evaluation and repair. I discussed with the patient my plan for diagnostic laparoscopy, possible Kalyan patch, possible conversion to open. Risks and benefits of the procedure were discussed at length with the patient. All questions and concerns were addressed with patient agreeing to proceed. -Zosyn to be given preoperatively -NPO -OR for diagnostic laparoscopy, possible Kalyan patch, possible conversion to open
[2024-07-03] MEDS: LACTATED RINGERS 1000 ML 1,000 ML 100 ML IV ×3 (03:11→12:20)
[2024-07-03 04:30] LABS: Slide Review Acceptable Review (Acceptable)
--- NOTE | 2024-07-03 05:38 | P.GSOP_ITS ---
Operative Note Date of procedure: 07/03/24 Pre-op diagnosis: Perforated ulcer Post-op diagnosis: Gastric ulcer perforation Type of Procedure: 1. Diagnostic laparoscopy 2. Conversion of open with Kalyan patch Indications: Patient is a 49-year-old female who presented to the emergency department with clinical workup and CT scan demonstrating perforation with intra-abdominal free air. There was inflammation of the distal stomach and duodenum, concerning for ulcer. Recommendations were to proceed emergently to the operating room. Risks and benefits were discussed at length with the patient. Risks included, but were not limited to: Bleeding, infection, risk of damage to surrounding structures and possible seizures. All questions and concerns were addressed with patient agreeing to proceed. Procedure Description: After discussing the risks and benefits of the procedure, the patient signed informed consent.? The operative site was marked and the patient was brought to the operating room and placed on the operating table in supine position.? Care was taken to pad the patient's pressure points.?? The patient was then intubated by anesthesia.?? The operative site was then prepped and draped in the usual sterile fashion.? A time-out was then performed. A 5 mm Visiport was used to enter the abdomen in the left upper quadrant. Upon entering the abdomen presence of fibrinous exudate and bile tinged succus in the upper quadrants. The abdomen was briefly surveyed with no evidence of injury upon entry. CO2 was used for insufflation. An additional 5 mm port was placed supraumbilical and in the right upper quadrant. The patient was placed in reverse Trendelenburg position with right side up. The succus was suctioned and gentle irrigation used to remove the overlying fibrinous exudate. A laparoscopic liver retractor was placed through the right upper quadrant port an d used to gently retract the overlying liver. With retraction inflammation of the distal stomach, pylorus and the 1st portion of the duodenum was identified. With gentle irrigation a large gastric ulcer was identified pre pyloric, 1.5 cm in size. Biopsies were obtained from the edge and within the ulcer bed to be sent to pathology. An additional 5 mm port was placed in the right lower quadrant. The 5 mm supraumbilical port was also switched for an 11 mm port. Using the Endo Stitch suture was placed on either side of the gastric ulcer. However, due to the friable nature of the tissue it was difficult to obtain an adequate bite and the tissue was unable to come together. The decision was then made to convert to an open operation. Patient was placed in a supine position. Laparoscopic equipment was taken off of the operative field. The laparoscopic liver retractor was also removed. A 8 cm supraumbilical midline incision was made with a 15 blade scalpel. Dissection was carried through subcutaneous tissue with cautery. The fascia was identified and incised with cautery at the midline. The abdomen was then entered and the CO2 insufflation evacuated. A medium Ryan wound retractor was placed into the abdomen. The patient was then placed reverse Trendelenburg. Using a malleable for retraction, the edge of the liver was gently retracted cephalad. The omentum overlying the stomach was packed into the lower abdomen. A [place] was used to grasp the greater curvature of the stomach and retract caudad. The pre pyloric ulcer was again identified. Using 3-0 silk pop-off sutures I did try to close the defect primarily. Again because of the friable nature of the tissue the sutures did not hold and I was unable to perform a primary closure. A piece of omentum was then chosen to perform a Kalyan patch. Using several 3-0 silk pop-off sutures the omentum was secured in place to the stomach with full- thickness interrupted sutures over the entire defect. Several additional silk pop-off sutures were also used to adhere the omentum to the stomach and prevent any tension or retraction of the repair. An NG tube was placed by Anesthesia and palpated within the body of the stomach. A leak test was then performed by filling the upper cavity with warm saline, applying compression to the duodenum and having anesthesia instill air into the NG tube. No leak was identified. The abdomen was then irrigated with a copious amount of warm saline. A 15 Amharic EDGAR drain was placed through the previous port site in the right upper quadrant with the drain lying over the repair. The drain was secured to the abdomen with 2 0 nylon suture. The midline incision was closed with two running looped 0 Maxon sutures. The wound was irrigated with warm saline. Skin nora were applied. The remaining port sites were closed with 4-0 Monocryl suture. Sterile dressings were applied. ? The patient was then woken and transported to the recovery area in stable condition. ? The patient tolerated the procedure well. Findings: Gastric ulcer perforation, measuring 1.5 cm in size. Closed with an omental patch. Anesthesia: GETA Surgeon: Katie Harris MD Estimated blood loss (mL): 15 Additional Specimen Information: Gastric ulcer biopsy Condition: stable Disposition: PACU
--- NOTE | 2024-07-03 05:54 | P.ANES_ITS ---
Anesthesia Charges Start Date/Time Anesthesia Start Date: 07/03/24 Anesthesia Start Time: 03:11 Stop Date/Time Anesthesia Stop Date: 07/03/24 Anesthesia Stop Time: 05:48 Summary Emergency: CLASSROOM INSTRUCTOR Coding CPT Codes CPT Codes: ANESTH SURG UPPER ABDOMEN - 34252 ([id number]) P2 - PATIENT W/MILD SYST DISEASE, QZ - CLASSROOM INSTRUCTOR SVC W/O CYLINDER HONER BY Additional Codes: Summary - Emergency: CLASSROOM INSTRUCTOR ([id number])
--- NOTE | 2024-07-03 05:54 | W.ANESCHARGE ---
Anesthesia Charges Start Date/Time Anesthesia Start Date: 07/03/24 Anesthesia Start Time: 03:11 Stop Date/Time Anesthesia Stop Date: 07/03/24 Anesthesia Stop Time: 05:48 Summary Emergency: PRODUCTION MANUFACTURING WORKER Coding CPT Codes CPT Codes: ANESTH SURG UPPER ABDOMEN - 21464 ([id number]) P2 - PATIENT W/MILD SYST DISEASE, QZ - PRODUCTION MANUFACTURING WORKER SVC W/O PATIENT RELATIONS COORDINATOR BY Additional Codes: Summary - Emergency: PRODUCTION MANUFACTURING WORKER ([id number])
[2024-07-03] MEDS: ONDANSETRON 2 MG/ML inj IVP ×2 (06:39→13:16)
[2024-07-03] MEDS: PIPERACILLIN/TAZOBACTAM 3.375 GM in 0.9 % SODIUM CHLORIDE Mini-bag 100 ML IVPB ×3 (07:53→19:26)
[2024-07-03] MEDS: PANTOPRAZOLE SODIUM 40 MG INJ IVP ×2 (09:53→20:32)
--- NOTE | 2024-07-03 11:36 | RESP.RT ---
Pt seen. Remains on low flow oxygn via NC. SPO2 93% Pt is a smoker. Worked with IS,coughing and deep breathing. 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 Worked on splinting with cough. PT reports feeling better after coughing. She thought she should not cough, that it might hurt something Explained that it is good to cough, and reasons for it. She understands and states she will not surpress cough.
[2024-07-03] MEDS: NICOTINE 21 MG PATCH 1 PATCH TRANSDERMA (15:16)
[2024-07-03 16:12] LABS: Magnesium* 1.3 mg/dL (1.5-2.6)
--- NOTE | 2024-07-03 18:57 | PC.NURSE ---
Shift Summary 15-19: Patient pleasant and cooperative. Up with one assist, gait belt, pivot to BSC. Pain managed with PRN medication see MAR. O2 @ 2L/NC. 20cc out in EDGAR drain, 50cc out in NG. Continues to be NPO. Nicotine patch left shoulder. Dressing C/D/I.
[2024-07-03 19:09] LABS: Basophils Percent Auto 0.1 % (0.0-3.0); Hematocrit 41.8 % (33.0-51.0); Hemoglobin* 14.2 gm/dL (12.0-16.0); Immature Granulocytes Pct Auto 0.1 %; Lymphocytes Percent Auto 12.5 % (20-44); Mean Corpuscular HGB Conc 34 gm/dL (32-36); Mean Corpuscular Hemoglobin 31 pg (26-34); Mean Corpuscular Volume 93 fL (80-100); Monocytes Percent Auto 8.3 % (0.0-11.0); Platelet Count* 219 K/uL (140-440); RDW Coefficient of Variation % 13.2 % (11.5-15.5); Red Blood Count 4.52 m/uL (4.00-5.20); White Blood Count* 15.23 K/uL (4.50-11.00)
[2024-07-03 19:19] LABS: Slide Review Reflex No
[2024-07-03 19:21] LABS: Chloride* 108 mmol/L (96-114)
[2024-07-03 19:22] LABS: Potassium* 4.6 mmol/L (3.6-5.1); Sodium* 136 mmol/L (135-149)
[2024-07-03 19:25] LABS: Anion Gap 2 mEq/L (7-15); Blood Urea Nitrogen* 15 mg/dL (7-30); Calcium* 8.8 mg/dL (8.4-10.6); Carbon Dioxide* 26 mmol/L (20-32); Creatinine* 0.8 mg/dL (0.5-1.5); Est. Creatinine Clearance* 68.82; Estimated Glomerular Filt Rate 89 ml/min; Glucose* 126 mg/dL (60-115); Magnesium* 1.7 mg/dL (1.5-2.6)
[2024-07-03] MEDS: LACTATED RINGERS 1000 ML 1,000 ML 125 ML IV (21:31)
[2024-07-04] MEDS: HYDROmorphone 0.5 mg/0.5 ml inj IVP ×5 (00:09→18:31)
[2024-07-04] MEDS: PIPERACILLIN/TAZOBACTAM 3.375 GM in 0.9 % SODIUM CHLORIDE Mini-bag 100 ML IVPB ×4 (00:49→18:32)
[2024-07-04 02:09] VITALS: BP 110/72; PULSE 92; RESP 16; TEMP 36.6; O2SAT 94
[2024-07-04] MEDS: LACTATED RINGERS 1000 ML 1,000 ML 125 ML IV ×3 (05:49→23:02)
--- NOTE | 2024-07-04 06:39 | PC.NURSE ---
Shift note: Patient ambulated with SBA to bedside commode. Oxygen delivered via NC at 2L throughout the night. EDGAR tube drained about 30ml of bloody discharge. NG tube intact at 57cm connected to intermittent suction. Drained about 100ml of greenish GI content. NPO status is maintained. Ice pack applied to the abdomen. Dressing intact, dry and clean. Pain has been between 2 and 5. Hypoactive bowel sound. Patient denied passing gas.
[2024-07-04 06:55] LABS: Basophils Percent Auto 0.2 % (0.0-3.0); Eosinophils Percent Auto 0.2 % (0.0-7.0); Hematocrit 41.4 % (33.0-51.0); Hemoglobin* 13.6 gm/dL (12.0-16.0); Immature Granulocytes Pct Auto 0.9 %; Lymphocytes Percent Auto 15.7 % (20-44); Mean Corpuscular HGB Conc 33 gm/dL (32-36); Mean Corpuscular Hemoglobin 31 pg (26-34); Mean Corpuscular Volume 94 fL (80-100); Monocytes Percent Auto 8.8 % (0.0-11.0); Neutrophils Percent Auto 74.2 % (42.0-72.0); Platelet Count* 224 K/uL (140-440); RDW Coefficient of Variation % 13.3 % (11.5-15.5); Red Blood Count 4.39 m/uL (4.00-5.20); White Blood Count* 12.99 K/uL (4.50-11.00)
[2024-07-04 07:04] LABS: Slide Review Reflex No
[2024-07-04 07:27] LABS: Chloride* 105 mmol/L (96-114); Sodium* 136 mmol/L (135-149)
[2024-07-04 07:28] LABS: Potassium* 4.1 mmol/L (3.6-5.1)
[2024-07-04 07:30] LABS: Blood Urea Nitrogen* 14 mg/dL (7-30); Creatinine* 0.8 mg/dL (0.5-1.5); Est. Creatinine Clearance* 68.82; Estimated Glomerular Filt Rate 89 ml/min
[2024-07-04 07:31] LABS: Anion Gap 2 mEq/L (7-15); Calcium* 8.9 mg/dL (8.4-10.6); Carbon Dioxide* 29 mmol/L (20-32); Glucose* 104 mg/dL (60-115)
[2024-07-04 07:35] VITALS: BP 128/70; PULSE 96; RESP 16; RESP 2; TEMP 36.7; O2SAT 96
[2024-07-04] MEDS: PANTOPRAZOLE SODIUM 40 MG INJ IVP ×2 (09:07→20:28)
[2024-07-04] MEDS: ONDANSETRON 2 MG/ML inj IVP (09:54)
--- NOTE | 2024-07-04 09:57 | PM.GSPN ---
Subjective Subjective Date Seen: 07/04/24 Interval history: Patient is doing well this morning. Feels soreness at her incision sites, this is being well controlled with medicine. Was able to walk the ibarra for the 1st time this morning. Not feeling hungry. Not yet passing gas. Denies any nausea. Exam Narrative: Exam Narrative: General: Alert and oriented, no acute distress HEENT: NG tube in place, bile tinged output Abdomen: Dressings removed. Upper midline incision with nora in place clean/dry/intact. Steri-Strips over port sites. Right upper quadrant with some output involved, fluid is slightly murky but improved compared to yesterday, serous with no evidence of bile Const: Vital Signs, click to edit/add: Vital Signs - 24 hr 07/03/24 10:30 07/03/24 11:30 07/03/24 12:30 Temperature 98 F Pulse Rate 98 92 92 Pulse Rate [Pulse Oximeter] Respiratory Rate 16 16 16 Blood Pressure 123/68 124/73 128/84 Blood Pressure [Ri ght Arm] Pulse Oximetry 95 103 H 93 Oxygen Delivery Me thod Blow By Blow By Nasal Cannula Oxygen Flow Rate 3 3 2 07/03/24 16:00 07/03/24 16:00 07/03/24 19:00 Temperature 96.9 F L 97.7 F Pulse Rate Pulse Rate [Pulse Oximeter] 93 91 Respiratory Rate 16 16 16 Blood Pressure Blood Pressure [Ri ght Arm] 107/63 119/74 Pulse Oximetry 93 93 94 Oxygen Delivery Me thod Nasal Cannula Nasal Cannula Nasal Cannula Oxygen Flow Rate 2 2 2 07/03/24 23:00 07/03/24 23:00 07/03/24 23:00 Temperature 98 F Pulse Rate Pulse Rate [Pulse Oximeter] 91 91 Respiratory Rate 16 16 16 Blood Pressure Blood Pressure [Ri ght Arm] 112/81 Pulse Oximetry 92 92 Oxygen Delivery Me thod Nasal Cannula Nasal Cannula Oxygen Flow Rate 2 2 07/04/24 02:09 07/04/24 07:35 07/04/24 07:35 Temperature 97.8 F 98.1 F Pulse Rate Pulse Rate [Pulse Oximeter] 92 96 Respiratory Rate 16 2 L 16 Blood Pressure Blood Pressure [Ri ght Arm] 110/72 128/70 Pulse Oximetry 94 96 96 Oxygen Delivery Me thod Nasal Cannula Nasal Cannula Nasal Cannula Oxygen Flow Rate 2 2 Labs/Imaging Labs Labs: Leukocytosis trending down (15--12) Imaging Imaging: No new imaging Progress Note:A&P Assessment and plan (1) Perforated gastric ulcer: Status: Acute Assessment and Plan: Patient is postop day 1 diagnostic laparoscopy with conversion to open in Kalyan patch repair for a gastric ulcer perforation. Doing well postoperatively. Vital signs stable and afebrile overnight. Her leukocytosis is trending down. She continues on IV antibiotics, Zosyn. Right upper quadrant drain in place, fluid is still murky in appearance but no evidence of bile in drainage. -NPO, continue NG tube to low intermittent suction -will plan for a Gastrografin study tomorrow through the NG tube to evaluate for a leak - IV and po pain meds as needed - continue IV protonix, 40 mg BID - IV Zosyn, will plan to transition to orals when able. Biopsies of the ulcer are pending but will plan for treatment of H pylori for presumed infection -encourage ambulation -SCDs and Lovenox for DVT prophylaxis
[2024-07-04 11:00] VITALS: BP 124/71; PULSE 99; RESP 18; TEMP 36.7; O2SAT 94
[2024-07-04] MEDS: 0.9 % SODIUM CHLORIDE 250 ml IV (13:33)
[2024-07-04 15:00] VITALS: BP 123/74; PULSE 99; RESP 18; TEMP 36.6; O2SAT 93
[2024-07-04] MEDS: NICOTINE 21 MG PATCH 1 PATCH TRANSDERMA (15:00)
--- NOTE | 2024-07-04 17:25 | PC.NURSE ---
Shift Summary: Patient pleasant and cooperative. Up with SBA and gait belt. Vitals stable and WNL. Pain managed with ice and PRN medication see APR. Dressings C/D/I. NG to low intermittent suction. Up in halls ambulating with staff. Continues to be NPO. Still requiring o2 @ 2L/NC. Denied passing gas or stool.
[2024-07-04 19:00] VITALS: BP 140/79; PULSE 105; RESP 18; TEMP 36.8; O2SAT 90
[2024-07-04] MEDS: ENOXAPARIN 40 MG/0.4 ML INJ SUBCUT (20:27)
[2024-07-04] MEDS: HYDROCODONE-ACETAMIN 5-325 MG 1 TAB PO (20:28)
[2024-07-04 22:50] VITALS: BP 123/79; PULSE 104; RESP 16; TEMP 36.8; O2SAT 91
[2024-07-05] VITALS (8 sets, daily range): BP systolic 136–168; BP diastolic 79–93; PULSE 93–108; RESP 18–22; TEMP 36.4–37.1; O2SAT 90–92
[2024-07-05] MEDS: PIPERACILLIN/TAZOBACTAM 3.375 GM in 0.9 % SODIUM CHLORIDE Mini-bag 100 ML IVPB ×4 (01:36→20:01)
[2024-07-05] MEDS: HYDROCODONE-ACETAMIN 5-325 MG 1 TAB PO ×5 (02:25→22:22)
--- NOTE | 2024-07-05 07:02 | PC.NURSE ---
End of shift [id number]: Pt AxOx4, pleasant, and cooperative with cares. NG tube is patent and draining. EDGAR is patent and draining. Incisions of the abdomen remain CDI. Active ice applied. Pt reported pain during the shift that was managed with PRN medication, reposition, walking, and active ice. SBA with IV pole. Walking hallways multiple times. Pt has not passed flatus. Pt required 1L 02 NC during the night to remain >90%, IS encouraged. Pt was able to rest for majority of the night. Pt in bed resting with call light in reach.
[2024-07-05] MEDS: PANTOPRAZOLE SODIUM 40 MG INJ IVP ×2 (08:33→20:58)
[2024-07-05 08:52] LABS: Basophils Percent Auto 0.2 % (0.0-3.0); Eosinophils Percent Auto 0.4 % (0.0-7.0); Hematocrit 41.1 % (33.0-51.0); Hemoglobin* 13.5 gm/dL (12.0-16.0); Immature Granulocytes Pct Auto 0.4 %; Lymphocytes Percent Auto 13.2 % (20-44); Mean Corpuscular HGB Conc 33 gm/dL (32-36); Mean Corpuscular Hemoglobin 31 pg (26-34); Mean Corpuscular Volume 95 fL (80-100); Monocytes Percent Auto 7.1 % (0.0-11.0); Neutrophils Percent Auto 78.7 % (42.0-72.0); Platelet Count* 228 K/uL (140-440); RDW Coefficient of Variation % 12.9 % (11.5-15.5); Red Blood Count 4.33 m/uL (4.00-5.20); White Blood Count* 12.24 K/uL (4.50-11.00)
[2024-07-05 08:53] LABS: Slide Review Reflex No
[2024-07-05 09:03] LABS: Chloride* 102 mmol/L (96-114); Potassium* 3.5 mmol/L (3.6-5.1); Sodium* 137 mmol/L (135-149)
[2024-07-05 09:06] LABS: Anion Gap 5 mEq/L (7-15); Blood Urea Nitrogen* 11 mg/dL (7-30); Calcium* 9.2 mg/dL (8.4-10.6); Carbon Dioxide* 30 mmol/L (20-32); Creatinine* 0.8 mg/dL (0.5-1.5); Est. Creatinine Clearance* 68.82; Estimated Glomerular Filt Rate 89 ml/min; Glucose* 100 mg/dL (60-115)
--- NOTE | 2024-07-05 10:08 | PM.GSPN ---
Subjective Subjective Date Seen: 07/05/24 Interval history: Patient is doing okay. Her pain is manageable but does increase when she walks the halls. No appetite and has not yet passed gas. She does have some nausea with her pain meds. No other concerns. Exam Narrative: Exam Narrative: General: Alert and oriented, nontoxic HEENT: NG tube remains in place, some bile tinged fluid within the canister, dark Abdomen: Soft, tender to palpation on the left side, no guarding or rebound. Incisions are clean/dry/intact with no concern for infection. Right upper quadrant drain in place with some murky serosanguineous fluid. No evidence of bile. Const: Vital Signs, click to edit/add: Vital Signs - 24 hr 07/04/24 11:00 07/04/24 15:00 07/04/24 15:00 Temperature 98.1 F 97.9 F Pulse Rate [Pulse Oximeter] 99 99 Respiratory Rate 18 18 18 Blood Pressure [Le ft Arm] Blood Pressure [Ri ght Arm] 124/71 123/74 Pulse Oximetry 94 93 93 Oxygen Delivery Me thod Nasal Cannula Nasal Cannula Nasal Cannula Oxygen Flow Rate 2 2 2 07/04/24 19:00 07/04/24 22:50 07/04/24 22:50 Temperature 98.2 F 98.2 F Pulse Rate [Pulse Oximeter] 105 H 104 H Respiratory Rate 18 16 16 Blood Pressure [Le ft Arm] Blood Pressure [Ri ght Arm] 140/79 H 123/79 Pulse Oximetry 90 91 91 Oxygen Delivery Me thod Nasal Cannula Nasal Cannula Nasal Cannula Oxygen Flow Rate 1 1 1 07/05/24 02:28 07/05/24 07:45 07/05/24 09:24 Temperature 97.6 F 98.8 F Pulse Rate [Pulse Oximeter] 102 H 95 Respiratory Rate 18 22 22 Blood Pressure [Le ft Arm] 141/83 H 136/81 Blood Pressure [Ri ght Arm] Pulse Oximetry 90 92 92 Oxygen Delivery Me thod Nasal Cannula Room Air Oxygen Flow Rate 1 Labs/Imaging Labs Labs: Leukocytosis (12.2) , potassium is mildly low at 3.5 Imaging Imaging: No new imaging Progress Note:A&P Assessment and plan (1) Perforated gastric ulcer: Status: Acute Assessment and Plan: Patient is postop day 2 diagnostic laparoscopy with conversion to open in Kalyan patch repair for a gastric ulcer perforation. Patient with a postoperative ileus. Recommend continuing NG tube in place. No contrast study done today, possible Gastrografin study at bedside tomorrow. Right upper quadrant drain remains in place, murky fluid within bulb, no evidence of bile. -NPO, continue NG tube to low intermittent suction - IV and po pain meds as needed - continue IV protonix, 40 mg BID - IV Zosyn, will plan to transition to orals when able. Biopsies of the ulcer are pending but will plan for treatment of H pylori for presumed infection -encourage ambulation -SCDs and Lovenox for DVT prophylaxis
--- NOTE | 2024-07-05 10:24 | PC.NURSE ---
Patient remains alert and oriented during shift. Continues on 1L of oxygen via NC. Needs encouragement to use IS. IS up to 500 with shallow breaths. Pain managed by PRN pain meds( See MAR). Midline Surgical site remains open to air with nora, clean, dry and intact. No dehiscence noted. EDGAR drain site also clean, dry and intact. Edgar site cleaned and dressing at the site changed this shift. NG tube intact 56 at the nare, on Low intermittent suction. Gastric content PH 46. Patient denies nausea. Reports that she is not passing gas however is burping. Ambulates with SB to the bathroom and the hallway. Patient ambulated in hallway this shift. Vital signs stable.
[2024-07-05] MEDS: LACTATED RINGERS 1000 ML 1,000 ML 125 ML IV ×2 (11:02→22:21)
[2024-07-05] MEDS: 0.9 % SODIUM CHLORIDE 250 ml IV (12:53)
[2024-07-05] MEDS: NICOTINE 21 MG PATCH 1 PATCH TRANSDERMA (14:31)
--- NOTE | 2024-07-05 18:53 | PC.NURSE ---
Pt up with SBA due to NG and IV tubing. Ambulates independently once up. Walks ibarra. Pain controlled with PRN meds per APR. NG with dark green liquid. Bowels hypoactive, denies flatus.
[2024-07-05] MEDS: ENOXAPARIN 40 MG/0.4 ML INJ SUBCUT (20:58)
[2024-07-06] VITALS (7 sets, daily range): BP systolic 134–163; BP diastolic 78–97; PULSE 95–103; RESP 16–20; TEMP 36.3–36.6; O2SAT 91–94
[2024-07-06] MEDS: PIPERACILLIN/TAZOBACTAM 3.375 GM in 0.9 % SODIUM CHLORIDE Mini-bag 100 ML IVPB ×4 (02:01→19:40)
[2024-07-06] MEDS: HYDROCODONE-ACETAMIN 5-325 MG 1 TAB PO ×4 (05:42→19:40)
[2024-07-06 06:34] LABS: Basophils Percent Auto 0.2 % (0.0-3.0); Eosinophils Percent Auto 0.5 % (0.0-7.0); Hematocrit 41.1 % (33.0-51.0); Immature Granulocytes Pct Auto 0.3 %; Lymphocytes Percent Auto 14.2 % (20-44); Mean Corpuscular HGB Conc 34 gm/dL (32-36); Mean Corpuscular Hemoglobin 32 pg (26-34); Mean Corpuscular Volume 93 fL (80-100); Monocytes Percent Auto 9.1 % (0.0-11.0); Neutrophils Percent Auto 75.7 % (42.0-72.0); Platelet Count* 260 K/uL (140-440); RDW Coefficient of Variation % 12.5 % (11.5-15.5); Red Blood Count 4.42 m/uL (4.00-5.20); White Blood Count* 13.02 K/uL (4.50-11.00)
[2024-07-06 06:36] LABS: Slide Review Reflex No
--- NOTE | 2024-07-06 06:43 | PC.NURSE ---
End of shift [id number]: Pt AxOx4, pleasant, and cooperative with cares. Midline incision open to air, CDI. EDGAR patent and draining. Teds and SCDs in place throughout the night. Voiding well. SBA with IV pole. Pt unable to pass flatus. Tolerating sips and chips well. Pt needing 1L NC per sats staying > 90%. Pt reported pain during the shift that was utilized with PRN medication, ice pack, walking, and repositioning. Pt appears resting in bed with call light in reach.
[2024-07-06] MEDS: LACTATED RINGERS 1000 ML 1,000 ML 125 ML IV ×2 (07:01→17:36)
--- NOTE | 2024-07-06 07:04 | PC.NURSE ---
Pt passed first flatus now @ 0704.
--- NOTE | 2024-07-06 08:24 | CRLHL7_ITS ---
For Patients: As a result of the Cures Act, medical imaging exams and procedure reports are released immediately into your electronic medical record. You may view this report before your referring provider. If you have questions, please contact your health care provider. Technique: Water-soluble upper GI performed. 60 cc Gastrografin diluted 50/50 with water administered orally. Fluoroscopy time 38 seconds. Indication: Status post gastric ulcer repair Comparison: CT 07/03/2024 Findings: Postop changes of distal gastric ulcer perforation repair. Contrast extends into the pylorus without evidence of extravasation. Indwelling nasogastric tube and percutaneous drainage tube. Impression: No extravasation. Dictated by Shaun Zhu MD @ 07/06/2024 10:29:40 AM (Electronically Signed)
--- NOTE | 2024-07-06 08:33 | PM.GSPN ---
Subjective Subjective Date Seen: 07/06/24 Interval history: Patient is doing good this morning. She has been walking the halls. She passed a little gas this morning. Denies any nausea. Her abdominal pain feels much better this morning compared to yesterday. No other concerns. Exam Narrative: Exam Narrative: General: Alert and oriented, no acute distress Abdomen: Soft, nontender to palpation. Incisions clean/dry/intact. [place] in midline incision. Right upper quadrant drain in place with minimal amount of serous output. Const: Vital Signs, click to edit/add: Vital Signs - 24 hr 07/05/24 09:24 07/05/24 11:00 07/05/24 14:45 Temperature 97.9 F Pulse Rate [Pulse Oximeter] 93 Respiratory Rate 22 20 Blood Pressure [Le ft Arm] 162/88 H Blood Pressure [Ri ght Arm] Pulse Oximetry 92 92 92 Oxygen Delivery Me thod Room Air Room Air Room Air Oxygen Flow Rate 1 1 07/05/24 15:00 07/05/24 15:00 07/05/24 15:00 Temperature 98.4 F Pulse Rate [Pulse Oximeter] 103 H 103 H Respiratory Rate 20 20 20 Blood Pressure [Le ft Arm] 151/93 H Blood Pressure [Ri ght Arm] Pulse Oximetry 92 92 Oxygen Delivery Me thod Room Air Room Air Oxygen Flow Rate 0.5 0.5 07/05/24 19:00 07/05/24 22:35 07/05/24 22:35 Temperature 98.2 F 98.3 F Pulse Rate [Pulse Oximeter] 106 H 108 H Respiratory Rate 18 18 18 Blood Pressure [Le ft Arm] 157/79 H Blood Pressure [Ri ght Arm] 168/93 H Pulse Oximetry 90 92 90 Oxygen Delivery Me thod Nasal Cannula Nasal Cannula Nasal Cannula Oxygen Flow Rate 1 1 1 07/06/24 03:00 07/06/24 07:37 07/06/24 07:37 Temperature 97.3 F L 97.8 F Pulse Rate [Pulse Oximeter] 98 98 Respiratory Rate 20 18 18 Blood Pressure [Le ft Arm] 162/88 H 152/88 H Blood Pressure [Ri ght Arm] Pulse Oximetry 92 93 93 Oxygen Delivery Me thod Nasal Cannula Nasal Cannula Nasal Cannula Oxygen Flow Rate 1 1 1 Labs/Imaging Labs Labs: Leukocytosis (13) Progress Note:A&P Assessment and plan (1) Perforated gastric ulcer: Status: Acute Assessment and Plan: Patient is postop day 3 diagnostic laparoscopy with conversion to open in Kalyan patch repair for a gastric ulcer perforation. Patient with improved nausea and is now passing gas. NG tube with clear spit like drainage within that tube, 150 for drainage since midnight. Will plan for Gastrografin study today. If negative will do a clamping trial and anticipate possible removal of NG tube later this afternoon. Afebrile, vital signs stable. Leukocytosis is mildly elevated at 13. Will continue with IV Zosyn at this time.
[2024-07-06] MEDS: PANTOPRAZOLE SODIUM 40 MG INJ IVP ×2 (08:46→21:25)
--- NOTE | 2024-07-06 13:47 | PC.NURSE ---
Shift Summary: Patient pleasant and cooperative. Up with SBA, walking in halls with staff. Still requiring 1L/NC, encouraged to use incentive spirometer and cough after use. Had x1 loose BM today, updated, NG pulled out, clear liquid. Informed patient to take it slow with clears to see her tolerance, so far has only had ice chips and one popsicle, denies nausea. Pain managed with PRN medication. Vitals stable and WNL.
[2024-07-06] MEDS: 0.9 % SODIUM CHLORIDE 250 ml IV (14:14)
[2024-07-06] MEDS: NICOTINE 21 MG PATCH 1 PATCH TRANSDERMA (15:01)
[2024-07-06] MEDS: SODIUM CHLORIDE 0.9 % (FLUSH) 10 ML SYRINGE 5 ML IVF (21:25)
[2024-07-06] MEDS: ENOXAPARIN 40 MG/0.4 ML INJ SUBCUT (21:25)
[2024-07-07] VITALS (7 sets, daily range): BP systolic 120–147; BP diastolic 60–94; PULSE 85–102; RESP 16–20; TEMP 35.6–36.9; O2SAT 90–94
[2024-07-07] MEDS: HYDROCODONE-ACETAMIN 5-325 MG 1 TAB PO ×5 (01:34→19:51)
[2024-07-07] MEDS: PIPERACILLIN/TAZOBACTAM 3.375 GM in 0.9 % SODIUM CHLORIDE Mini-bag 100 ML IVPB ×4 (01:34→19:52)
[2024-07-07] MEDS: LACTATED RINGERS 1000 ML 1,000 ML 125 ML IV ×2 (01:43→10:49)
[2024-07-07 06:11] LABS: Basophils Percent Auto 0.2 % (0.0-3.0); Eosinophils Percent Auto 2.1 % (0.0-7.0); Hematocrit 38.3 % (33.0-51.0); Hemoglobin* 13.2 gm/dL (12.0-16.0); Immature Granulocytes Pct Auto 0.6 %; Lymphocytes Percent Auto 17.4 % (20-44); Mean Corpuscular HGB Conc 35 gm/dL (32-36); Mean Corpuscular Hemoglobin 32 pg (26-34); Mean Corpuscular Volume 92 fL (80-100); Monocytes Percent Auto 13.5 % (0.0-11.0); Neutrophils Percent Auto 66.2 % (42.0-72.0); Platelet Count* 244 K/uL (140-440); RDW Coefficient of Variation % 12.6 % (11.5-15.5); Red Blood Count 4.17 m/uL (4.00-5.20); White Blood Count* 12.47 K/uL (4.50-11.00)
[2024-07-07 06:13] LABS: Slide Review Reflex No
--- NOTE | 2024-07-07 06:44 | PC.NURSE ---
[id number]: Patient pleasant and cooperative. Afebrile. 2 small BM during shift (5 in total). Walked halls x2. 1 Lt NC to maintain sats>90%. Pain controlled with PRN [place] and active ice. 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 Denies CP/N/V. Tolerating clears. BS hypo.
[2024-07-07] MEDS: SODIUM CHLORIDE 0.9 % (FLUSH) 10 ML SYRINGE 5 ML IVF ×2 (08:31→20:05)
[2024-07-07] MEDS: PANTOPRAZOLE SODIUM 40 MG INJ IVP (08:31)
--- NOTE | 2024-07-07 09:29 | P.GSPN_ITS ---
Subjective Subjective Date Seen: 07/07/24 Interval history: Patient is doing well this morning. Feels tired, but was able to sleep last night. Incision pain still present, improving. Tolerated clear liquids without nausea. Has had several BMs since the gastrograffin yesterday. No other co ncerns. Exam Narrative: Exam Narrative: Gen: alert and oriented, NAD Abd: soft, non tender. Incisions c/d/i with no concern for infection. RUQ drain in place with minimal serous output. Const: Vital Signs, click to edit/add: Vital Signs - 24 hr 07/06/24 11:17 07/06/24 16:24 07/06/24 16:24 Temperature 97.6 F 97.8 F Pulse Rate [Pulse Oximeter] 103 H 97 Respiratory Rate 16 16 16 Blood Pressure [Le ft Arm] 163/97 H 142/78 H Pulse Oximetry 91 94 94 Oxygen Delivery Me thod Nasal Cannula Nasal Cannula Nasal Cannula Oxygen Flow Rate 1 1 1 07/06/24 19:36 07/06/24 22:28 07/06/24 23:00 Temperature 97.7 F 97.4 F L Pulse Rate [Pulse Oximeter] 95 97 Respiratory Rate 20 20 20 Blood Pressure [Le ft Arm] 156/83 H 134/79 Pulse Oximetry 93 93 93 Oxygen Delivery Me thod Nasal Cannula Nasal Cannula Nasal Cannula Oxygen Flow Rate 1.0 1.0 1.0 07/07/24 01:39 07/07/24 06:22 Temperature 98.5 F 97.8 F Pulse Rate [Pulse Oximeter] 95 Respiratory Rate 20 Blood Pressure [Le ft Arm] 147/81 H Pulse Oximetry 91 Oxygen Delivery Me thod Nasal Cannula Oxygen Flow Rate 1.0 Labs/Imaging Labs Labs: WBC 12.4 Progress Note:A&P Assessment and plan (1) Perforated gastric ulcer: Status: Acute Assessment and Plan: Patient is postop day 4 diagnostic laparoscopy with conversion to open in Kalyan patch repair for a gastric ulcer perforation. Return of bowel function. No evidence of leak on fluoro. NG removed. Will advance diet to low fiber. RUQ drain remains in place, continues to drain serous fluid. WBC trending down to 12.4. Will transition to oral antibiotics. H. pylori stool Ag ordered. Discharge likely tomorrow.
[2024-07-07] MEDS: 0.9 % SODIUM CHLORIDE 250 ml IV (14:55)
[2024-07-07] MEDS: NICOTINE 21 MG PATCH 1 PATCH TRANSDERMA (14:56)
[2024-07-07] MEDS: ENOXAPARIN 40 MG/0.4 ML INJ SUBCUT (19:52)
[2024-07-07] MEDS: OMEPRAZOLE 20 MG CAPSULE DR PO (20:05)
[2024-07-07 20:40] LABS: H pylori Ag Stool* Negative (Negative)
[2024-07-07] MEDS: hydrOXYzine pamoate 25 MG CAPSULE PO (21:59)
[2024-07-08] MEDS: PIPERACILLIN/TAZOBACTAM 3.375 GM in 0.9 % SODIUM CHLORIDE Mini-bag 100 ML IVPB ×2 (01:57→07:58)
[2024-07-08] MEDS: HYDROCODONE-ACETAMIN 5-325 MG 1 TAB PO ×4 (02:10→16:45)
[2024-07-08 02:25] VITALS: BP 135/77; PULSE 93; RESP 18; TEMP 36.7; O2SAT 90
--- NOTE | 2024-07-08 05:47 | PC.NURSE ---
End of shift report [id number]: VSS. Afebrile. Rates pain from 5-3/10, prn pain meds offered and given with relief. Pt is utilizing intermittent ice. Pt was on 1 L O2 via NC overnight to maintain O2 sats above 90% per MD order. At the beginning of the shift pt stated she was feeling anxious, prn med offered and given with relief. EDGAR drain in abdomen RUQ is intact and patent. Pt is ind in room, call light within reach. ?
[2024-07-08 07:48] VITALS: BP 143/89; PULSE 90; RESP 16; TEMP 36.4; O2SAT 90
[2024-07-08] MEDS: OMEPRAZOLE 20 MG CAPSULE DR PO (07:58)
[2024-07-08] MEDS: SODIUM CHLORIDE 0.9 % (FLUSH) 10 ML SYRINGE 5 ML IVF (07:59)
[2024-07-08 08:48] VITALS: O2SAT 91
[2024-07-08 11:00] VITALS: BP 128/76; PULSE 96; RESP 16; O2SAT 91
[2024-07-08 11:42] VITALS: BMI 30.7
[2024-07-08 15:00] VITALS: BP 121/70; BP 128/76; PULSE 96; RESP 16; TEMP 36.4; O2SAT 91
--- NOTE | 2024-07-08 15:00 | RESP.RT ---
Patient is a current smoker and states that she is willing to quit. She has been told that she is a loud sleeper and her SATs drop while she has been in the hospital here, so I would recommend a sleep study. Her smoking history is significant with 1st hand and 2nd hand smoking. I would recommend a maintenance medication like Breo to help manage her likely mild COPD. SATs on room air with activity are 90-92% and 92-94% at rest. She does not require supplemental O2 at this time, however we did discuss the likelihood of her requiring Home O2 in the near future if she continued to smoke.
--- NOTE | 2024-07-08 15:22 | P.DS_ITS ---
DS: Providers Provider Date Seen: 07/08/24 Date of admission: 07/03/24 06:31 Primary care physician: Not a Local Provider Admitting Clinician: Katie Harris MD Attending Physician on discharge: Katie Harris MD DS: Summary Hospital Course Hospital Course: Patient presented to the emergency department with evidence of peritonitis and CT scan showing pneumoperitoneum. She was taken to the OR for diagnostic laparoscopy converted to open and Kalyan patch. A large gastric ulcer perforation was identified. Postoperatively a right upper quadrant drain was left in place and NG tube. On postop day 3 a study with Gastrografin was performed through the NG tube with no evidence of a leak. Patient had return of bowel function. The NG tube was removed and her diet increased to low fiber. Her right upper quadrant drain was removed prior to her discharge. During her hospital stay she continued on IV Zosyn. At the time of discharge she was transition to oral antibiotics to complete a 10 day course. Her H pylori antigen was negative. Biopsies of the ulcer showed benign fibrinous exudate, no evidence of malignancy. Patient did have slight hypoxia while sleeping with and noted oxygen of 88%. While up and walking her oxygen range from 90-92%. Recommend she see her primary care provider as an outpatient and have a sleep study performed. Time Spent with Patient Time attestation: Total time spent providing and/or coordinating discharge services: Exam Narrative: Exam Narrative: General: Alert and oriented, no acute distress Respiratory: Equal breath rise bilaterally, maintained on room air CV: Well perfused Abdomen: Soft, nontender to palpation. Incisions healing well with no concern for infection. Right upper quadrant drain with serous output. Drain removed at bedside. Const: Vital Signs, click to edit/add: Vital Signs - 24 hr 07/07/24 19:00 07/07/24 23:00 07/07/24 23:00 Temperature 97.8 F 97.7 F Pulse Rate [Pulse Oximeter] 102 H 95 95 Respiratory Rate 18 16 16 Blood Pressure [Le ft Arm] 131/80 Blood Pressure [Ri ght Arm] 121/70 Pulse Oximetry 90 92 Oxygen Delivery Me thod Room Air Nasal Cannula Oxygen Flow Rate 1 07/07/24 23:00 07/08/24 02:25 07/08/24 07:48 Temperature 98.1 F 97.5 F L Pulse Rate [Pulse Oximeter] 93 90 Respiratory Rate 16 18 16 Blood Pressure [Le ft Arm] 135/77 143/89 H Blood Pressure [Ri ght Arm] Pulse Oximetry 92 90 90 Oxygen Delivery Me thod Nasal Cannula Nasal Cannula Nasal Cannula Oxygen Flow Rate 1 1 0.5 07/08/24 08:48 07/08/24 11:00 Temperature Pulse Rate [Pulse Oximeter] 96 Respiratory Rate 16 Blood Pressure [Le ft Arm] 128/76 Blood Pressure [Ri ght Arm] Pulse Oximetry 91 91 Oxygen Delivery Me thod Nasal Cannula Room Air Oxygen Flow Rate 0.5 DS: Data Data Completed and Pending Labs on day of discharge: Labs from last 24 hours 07/07/24 20:15 Stool H. pylori Ag Negative Discharge Plan Discharge Disposition: Home, Self-Care Date of Admission: 07/03/24 06:31 Attending Provider on Discharge: Katie Harris Primary Care Provider: Provider,Not a Local Condition: Improved Anticipated Discharge Date/Time: 07/08/24 15:21 Discharge Medications: New pantoprazole [Protonix] 40 mg tablet,delayed release (DR/EC) 40 mg PO DAILY Qty: 60 2RF hydrocodone-acetaminophen 5-325 mg tablet 1 tab PO Q6H PRN (Reason: pain) Qty: 15 0RF ciprofloxacin HCl 500 mg tablet 500 mg PO BID 4 Days Qty: 8 0RF metronidazole 500 mg tablet 500 mg PO Q8H 4 Days Qty: 12 0RF senna 8.6 mg capsule 8.6 mg PO DAILY PRN (Reason: constipation) Qty: 90 0RF Discharge Orders: Discharge Order (Routine); Ordered 07/08/24 Ordered By: Katie Harris Patient Education: Peptic Ulcer (DC) Additional Instructions: You were prescribed a narcotic pain medication. In addition you may supplement with Tylenol. Avoid ibuprofen and other NSAIDs. Be sure to not exceed greater than 4 g of Tylenol in a 24 hour period. While on narcotic pain medicine please take stool softeners. A prescription of stool softeners has been sent to the pharmacy. Stop if having greater than 2 stools per day. You have Steri-Strips dressings in place, allow these to fall off on their own. Okay to shower. Do not soak in a bath or swim for 2 weeks. Your nora will be removed at a nursing visit next week. Follow-up with Dr. Harris next week as scheduled. Please call if you are experiencing severe pain, nausea, vomiting, difficulty urinating, fever or not had a bowel movement in 4 days after surgery. Activity Level: No strenuous activity Activity Detail: Activity as tolerated. Avoid strenuous activity. No lifting greater than 20 lb for 6 weeks. Discharge Diet: Low Fiber Diet Detail: Continue on a low-fiber diet at home. Follow Up Appointments: Moe Victor MD [Staff Physician, Family Practice] - 07/13/24 1:30 pm Referral Note: [facility] to remove nora and patient care primary. Katie Harris MD [Staff Physician, General Surgery] - 07/15/24 2:15 pm Referral Note: [facility] for hospital follow-up. Forms: [employer] Info Instructions
[2024-07-08] MEDS: NICOTINE 21 MG PATCH 1 PATCH TRANSDERMA (16:24)
--- NOTE | 2024-07-08 17:06 | PC.NURSE ---
Pt doing well today. VSS. Intermittent pain to abdominal surgical site. Pain controlled with PRN pain medication. Pt encouraged to walk in halls, tolerated fairly well. Pt denies nausea, tolerating regular diet. Pt discharged home via son at 1700. Pt belongings and discharge instructions signed. Education reviewed, no questions or concerns at this time.
== END 2024-07-08 17:00 | disposition home or self-care (01) | DRG 328 ==
LOC: ED 07-03 01:50 → SS 07-03 02:00 → MEDSURG 07-03 06:30
PROVIDERS: Family Medicine; Admitting Provider Surgery; Emergency Provider Family Medicine; Visit Provider Surgery
PROC: 0DJ64ZZ Inspection of Stomach, Percutaneous Endoscopic Approach (ICD-10-PCS; CPT 49320; principal; 2024-07-03 02:45)
DX: K25.1 Acute gastric ulcer with perforation (principal); K90.0 Celiac disease; F17.210 Nicotine dependence, cigarettes, uncomplicated; Z53.31 Laparoscopic surgical procedure converted to open procedure; R09.02 Hypoxemia
CPT/HCPCS: 00790; 36415; 74177; 74240; 80048; 80076; 80143; 80179; 80306; 81001; 82077; 83605; 83690; 83735; 84484; 85025; 85379; 86140; 87086; 87338; 88305; 93005; 94761; 99140; 99285; A9270; J0330; J1100; J1171; J1630; J1650; J1885; J2371; J2405; J2470; J2543; J2704; J3010; J3475; J3480; J3490; J7030; J7050; J7120; Q9967; S4990

== ENCOUNTER 2024-07-28 13:54 | Emergency (ER) | payer OTHER, SELFPAY ==
--- OUTSIDE RECORDS SUMMARY | 2006-06-24 10:21 | XMS_ITS | Continuity of Care Document ---
Author Organization GIN Torres Address [address] [facility] [address] [place] [address] Phone Care Team Providers Care Geology Instructor Name Role Phone Elizabeth Wang PA-C [...] Offic/outpt E&m Estab Low-mod GIN Torres, [address] [facility] [address], [place], [id number], tel:[phone] [facility] No Information eFlipe Johnson. [address] [facility] [address], [address], [place]. tel:[phone] Referring Provider: Shaun Berman, [address] [place], [address]. tel:[phone] Offic/outpt E&m Estab Minor 10 GIN Torres, [address] [facility] [address], [place], [id number], tel:[phone] [facility] No Information [address]. [address] [facility] [place], [facility], . tel:[phone] Referring Provider: TUTU Posada, [address], [place], [place], [id number], tel:[phone] [facility] No Information [address] River Dunn. [address] , [place], [place], [facility], . tel:[phone] Referring Provider: DARIO BRUCE Offic Cons New/estab Mod-hi 60 Brian [facility], [address], [place], [place], [id number], tel:[phone] [facility] No Information 7 Felipe Johnson. [address] [facility], [address], [place], [address], . tel:[phone] Referring Provider: DARIO BRUCE Family History Family Member Type Diagnosis Age At Onset No Information Payers Payer name Insurance type Covered green party ID Authoriza tion(s) [employer] [id number] Social History Type Description Quantity Date Captured [...]
--- OUTSIDE RECORDS SUMMARY | 2006-06-24 10:21 | XMS_ITS | Continuity of Care Document ---
Author Organization GIN Torres Address [address] [facility] [address] [place] [address] Phone Care Team Providers Care Strike On Machine Operator Name Role Phone Elizabeth Wang PA-C Unavailable [...] Offic/outpt E&m Estab Low-mod GIN Torres, [address] [facility] [address], [place], [id number], tel:[phone] [facility] No Information Felipe Johnson. [address] [facility] [address], [address], [place]. tel:[phone] Referring Provider: Shaun Berman, [address] [place], [address]. tel:[phone] Offic/outpt E&m Estab Minor 10 GIN Torres, [address] [facility] [address], [place], [id number], tel:[phone] [facility] No Information 7 River Dunn. [address] [facility] [place], [facility], . tel:[phone] Referring Provider: TUTU Posada, [address] [facility] [address] [facility], [place], [place], [id number], tel:[phone] [facility] No Information [address] River Dunn. [address] , [place], [place], [facility], . tel:[phone] Referring Provider: DARIO BRUCE Offic Cons New/estab Mod-hi 60 [address] [facility], [address] [facility] [address], [place], [place], [address], tel:[phone] [facility] No Information 7 Felipe Johnson. [address] [facility], [address], [place], [address], . tel:[phone] Referring Provider: DARIO BRUCE Family History Family Member Type Diagnosis Age At Onset No Information Payers Payer name Insurance type Covered republican ID Authoriza tion(s) [employer] [id number] Social History Type Description Quantity Date Captured [...]
[2024-07-28] VITALS (9 sets, daily range): BP systolic 106–124; BP diastolic 59–82; PULSE 91–112; RESP 18–22; TEMP 37.5–38.2; O2SAT 83–98; BMI 27.1
--- OUTSIDE RECORDS SUMMARY | 2024-07-28 13:59 | XMS_ITS | Clinical Summary ---
Author Organization [facility] Address [address] [place] [id number] Care Team Providers Care International Operations Manager Name Role Phone [facility] Primary [facility] er Michael Franco MD Unavailable [phone] Allergies Active Allergy Reactions Criticality Noted Date [...] on file Legal Sex Female 3:14 AM MATERIALS INTERN Gender Identity Not on file Sexual Orientation [...] 1988 HEPATITIS C SCREENING 05/11/1991 HEPATITIS B VACCINE (1 of 3 - 19+ 3-dose series) 1992 PNEUMOCOCCAL VACCINE 50+ YEARS (1 of 2 - PCV) 1992 PAP 1994 DTAP/TDAP/TD VACCINE (1 - Tdap) 1998 DIABETES SCREENING 04/19/2013 04/19/2010, 07/21/2009 LIPID 2013 LUNG CANCER SCREENING 05/11/2023 ZOSTER VACCINE (1 of 2) 05/11/2023 COVID-19 VACCINE (3 - 2023-2 5 season) 2023 01/05/2021, 05/18/2020 PHQ-2 (once per calendar year) 2024 INFLUENZA VACCINE (Season Ended) 2024 12/01/2013, 11/10/2012 COLONOSCOPY 07/27/2026 07/27/2016 COLORECTAL CANCER SCREENING 07/27/2026 HPV VACCINE Aged Out No longer eligi ble based on patient's age to complete this topic MENINGITIS VACCINE Aged Out No longer eligible based on patient's age to complete this topic Procedures Procedure Name Priority Date/Time Associated Diagnosis Comments BASIC METABOLIC PANEL STAT 04/19/2010 4:16 PM MATERIALS INTERN from Last 3 Months or Most Recently Relevant to Health Maintenance Results * Basic metabolic panel (04/19/2010 4:16 PM MATERIALS INTERN) Sodium 140 133 - 144 mmol/L MISYS [...] - 17 mmol/L MISYS 04/19/2010 4:16 PM MATERIALS INTERN 04/19/2010 4:10 PM MATERIALS INTERN us Saul Ceron MD LAB - BLOOD ORDERABLES An gonzales Result MISYS from Last 3 Months or Most Recently Relevant to Health Maintenance [place] [address] [place] [address] Transfer To Care Teams International Operations Manager Relationship Specialty Start Date End Date Clinic, [facility] [address], [address] [place] [id number] PCP - General 07/07/19 Michael Franco MD [address] [place] [id number] Assigned PCP 07/19/21
--- NOTE | 2024-07-28 14:13 | CRLHL7_ITS ---
For Patients: As a result of the Century Cures Act, medical imaging exams and procedure reports are released immediately into your electronic medical record. You may view this report before your referring provider. If you have questions, please contact your health care provider. INDICATION: Abdominal pain in the mid abdomen/left quadrant.. TECHNIQUE: CT abdomen and pelvis acquired with 75 cc Isovue 370 IV contrast. COMPARISON: July 03, 2024. FINDINGS: Lower chest: Unremarkable. Liver: Probable mild hepatic steatosis. No suspicious hepatic lesions identified. Gallbladder and bile ducts: Cholelithiasis without CT evidence of cholecystitis. No significant intra or extrahepatic biliary ductal dilatation. Pancreas: Unremarkable. No mass or inflammation. Spleen: Unremarkable. Normal in size. No masses. Adrenal glands: Unremarkable. No nodules. Kidneys: Unremarkable. No suspicious masses, stones, or hydronephrosis. GI tract: Mild mucosal enhancement noted in the transverse colon likely reactive. In addition mucosal enhancement and wall thickening in the stomach is identified, similar to prior and likely related to underlying inflammation. Previously identified outpouching at the 1st portion of the duodenum is not visualized currently and may be related to interval repair. Foci of gas are identified adjacent to the duodenum near the inferior margin of the liver (4/70), likely related to recent surgical intervention. Jessica duodenal inflammatory stranding in this region with small fluid as well may be related to underlying mild inflammation and postsurgical changes. Anterior to the stomach, there is a fluid collection measuring approximately 4.3 x 3.6 centimeters (2/7), with fluid and gas and mild peripheral enhancement suspected to be contained perforation versus abscess. This has a small communication to an additional collection which extends anterior to the left hepatic lobe and measures 5.9 x 3.1 x 4.7 centimeters (2/43). Additional smaller loculations extend inferiorly and anteriorly along the anterior abdominal wall again with subtle peripheral enhancement concerning for developing abscesses. Vasculature: Abdominal aorta is normal in caliber. Mesenteric arteries are patent. Lymph nodes: No lymphadenopathy. Peritoneum/Abdominal Wall: As above, multiple loculated collections anterior to the stomach, left hepatic lobe and deep to the midline surgical incision. Gas and fluid are identified within the collections with peripheral enhancement concerning for developing abscesses, or contained perforation. Small foci of gas noted adjacent to the hepatic hilum. No substantial free fluid.. Pelvis: Bladder is collapsed. Uterus is absent. Bones: Unremarkable for age. IMPRESSION: 1. Multiloculated fluid collection with small areas of gas which are situated anterior to the stomach, left hepatic lobe and deep to the surgical incision. These may represent postsurgical forming abscesses, or persistent contained perforation of the stomach/duodenum. Recommend surgical consultation for further evaluation and treatment. 2. Cholelithiasis without CT evidence of cholecystitis. 3. Probable mild hepatic steatosis. Please note that all CT scans at this facility use dose modulation, iterative reconstruction, and/or weight-based dosing when appropriate to reduce radiation dose to as low as reasonably achievable. Dictated by Benita Maradiaga MD @ 07/28/2024 4:17:01 PM (Electronically Signed)
--- NOTE | 2024-07-28 14:37 | ED_ITS ---
HPI - General Adult General Chief complaint: Nausea/Vomiting <Rosy Mosley MD - Last Filed: 07/28/24 17:52> Stated complaint: vomiting <Rosy Mosley MD - Last Filed: 07/28/24 17:52> Time Seen by Provider: 07/28/24 14:15 <Rosy Mosley MD - Last Filed: 07/28/24 17:52> Source: patient <Rosy Mosley MD - Last Filed: 07/28/24 17:52> Mode of arrival: ambulatory <Rosy Mosley MD - Last Filed: 07/28/24 17:52> Limitations: no limitations <Rosy Mosley MD - Last Filed: 07/28/24 17:52> History of Present Illness HPI narrative: 49-year-old female sent over from the urgent care for abdominal pain vomiting. Patient states she has been vomiting since Friday. Friday this all started when she started feeling chills and not feeling well, has been able to keep anything down since. No known fevers that she is aware of. She states she has 2-3 episodes of diarrhea per day, unclear if this is normal for her as patient states nothing has been normal since she had surgery. Patient had a large perforated gastric ulcer that was fixed on the 03 of July. She had a post op right upper quadrant drained and NG tube. Drains removed prior to discharge. She has been doing fine at home since with expected pain and good pain management, until the vomiting started. She states that in the last day her abdominal pain is progressively gotten worse. Describes it as pain in the epigastric region. Patient was sent from the urgent care for imaging. Patient is passing gas, vomit does not contain any blood or dark colored material. No blood in her stools. Denies any urinary symptoms. She is not short of breath and denies chest pain. She did have a CBC done which showed a white cell count of 13.7, no significant left shift. Normal hemoglobin and hematocrit. Chemistries showed a sodium slightly low at 133, potassium slightly low at 3.1, chloride low at 91. Normal renal function. <Rosy Mosley MD - Last Filed: 07/28/24 17:52> Related Data Home medications: Previous Rx's ?Medication ?Instructions ?Recorded pantoprazole 40 mg tablet,delayed 40 mg PO DAILY #60 t abs 07/07/24 release (Protonix) <Rosy Mosley MD - Last Filed: 07/28/24 17:52> Allergies/adverse reactions: Allergies Allergy/AdvReac Type Severity Reaction Status Date / Time clarithromycin (From Biaxin) Allergy Verified 07/28/24 15:53 gluten Allergy Verified 07/28/24 15:53 bee venom protein (honey bee) AdvReac Severe Hives Verified 07/28/24 15:53 <Rosy Mosley MD - Last Filed: 07/28/24 17:52> Review of Systems Status of ROS: Reports: 10 or more systems reviewed and unremarkable except as noted in History and below <Rosy Mosley MD - Last Filed: 07/28/24 17:52> [facility] Medical History: Medical History Perforated gastric ulcer ?K25.5 - Chronic or unspecified gastric ulcer with perforation (ICD-10) Endometriosis determined by laparoscopy ?N80.9 - Endometriosis, unspecified (ICD-10) <Rosy Mosley MD - Last Filed: 07/28/24 17:52> Surgical History: Surgical History History of hysterectomy ?Z90.710 - Acquired absence of both cervix and uterus (ICD-10) <Rosy Mosley MD - Last Filed: 07/28/24 17:52> Social History: Social History What is your current living situation?: I presently have a place to live Problems where you live: no known problems In the past 12 months, utilities in danger of being shut off: no In past 12 months, lack of transportation kept you from medical appts, meetings, work, or getting things needed for daily living: no In the past 12 mos, have been you worried that your food would run out before you had money to buy more?: never true In the past 12 mos, the food you bought just didn't last and you didn't have money to buy more?: never true Smoking Status: Never smoker Do you use any of these nicotine containing products: None Second hand tobacco smoke exposure: No How often do you have a drink containing alcohol: never How often do you have six or more drinks on one occasion: Never AUDIT-C Alcohol total score: 0 Non-prescribed substance use: denies use How often does anyone, including family, friends and others, physically hurt you : never How often does anyone, including family, friends and others, insult or talk down to you: never How often does anyone, including family, friends and others, threaten you with harm: never How often does anyone, including family, friends and others, scream or curse at you: never service: No <Rosy Mosley MD - Last Filed: 07/28/24 17:52> Exam Narrative: Exam Narrative: Well-nourished well-developed patient in no acute distress. Alert and oriented. Answers questions appropriately. Mood and affect are appropriate. Thoughts are goal oriented and rational. No tangential or magical thinking noted. Patient speaks in full sentences without needing to catch her breath. HEENT: Normocephalic atraumatic. Pupils are equally round reactive to light. Extraocular muscles are intact. Conjunctivae are moist without any icterus noted. Moist mucous membranes. Cardiovascular: Heart is regular rate and rhythm S1 and S2 are present without any murmurs. Lungs: Clear to auscultation bilaterally no wheezes rhonchi or rales are appreciated. Patient takes deep breaths without any discomfort. Abdomen: Soft and nondistended with normal bowel sounds. She does have epigastric tenderness. Remainder of the abdomen is without tenderness. Extremities: Bilateral lower extremities are without edema. Skin: Well perfused without any obvious rashes. <Rosy Mosley MD - Last Filed: 07/28/24 17:52> Const: Vital Signs, click to edit/add: Vital Signs - 24 hr 07/28/24 13:56 07/28/24 18:44 07/28/24 18:44 Temperature 99.5 F Pulse Rate Pulse Rate [Right Pulse Oximeter] 112 H Respiratory Rate 18 Blood Pressure Blood Pressure [Ri ght Upper Arm] 124/81 Pulse Oximetry 92 83 L 83 L Oxygen Delivery Me thod Room Air Room Air Oxygen Flow Rate 2 07/28/24 19:04 07/28/24 19:05 07/28/24 19:06 Temperature Pulse Rate 91 94 93 Pulse Rate [Right Pulse Oximeter] Respiratory Rate Blood Pressure 121/71 118/72 Blood Pressure [Ri ght Upper Arm] Pulse Oximetry 96 97 98 Oxygen Delivery Me thod Oxygen Flow Rate 07/28/24 19:07 Temperature 100.7 F H Pulse Rate Pulse Rate [Right Pulse Oximeter] 92 Respiratory Rate 22 Blood Pressure Blood Pressure [Ri ght Upper Arm] 118/72 Pulse Oximetry 98 Oxygen Delivery Me thod Oxygen Flow Rate <Rosy Mosley MD - Last Filed: 07/28/24 17:52> Vital Signs, click to edit/add: Vital Signs - 24 hr 07/28/24 13:56 07/28/24 18:44 07/28/24 18:44 Temperature 99.5 F Pulse Rate Pulse Rate [Right Pulse Oximeter] 112 H Respiratory Rate 18 Blood Pressure Blood Pressure [Ri ght Upper Arm] 124/81 Pulse Oximetry 92 83 L 83 L Oxygen Delivery Me thod Room Air Room Air Oxygen Flow Rate 2 07/28/24 19:04 07/28/24 19:05 07/28/24 19:06 Temperature Pulse Rate 91 94 93 Pulse Rate [Right Pulse Oximeter] Respiratory Rate Blood Pressure 121/71 118/72 Blood Pressure [Ri ght Upper Arm] Pulse Oximetry 96 97 98 Oxygen Delivery Me thod Oxygen Flow Rate 07/28/24 19:07 Temperature 100.7 F H Pulse Rate Pulse Rate [Right Pulse Oximeter] 92 Respiratory Rate 22 Blood Pressure Blood Pressure [Ri ght Upper Arm] 118/72 Pulse Oximetry 98 Oxygen Delivery Me thod Oxygen Flow Rate <Kevyn Gallegos DO - Last Filed: 07/28/24 21:40> Course Course ED Course: IV established and we added some blood work including LFT, lipase, UA, lactate and CRP. Normal saline and Zofran were started. Lactate is normal. CBC shows a mildly elevated white cell count of 13.7, no left shift. AST minimally elevated at 40, normal ALT. Alkaline phosphatase elevated at 305. UA showing 2+ protein, 2+ ketones, 1+ bilirubin. Abdominal CT scan concerning for abscess or re- perforation. Discussed case with Dr. Navarrete who believes that this is likely postoperative abscess formation. She recommends transfer to a hospital that has interventional radiology capability to drain the abscesses. In the meantime we did go ahead and start the patient on IV Zosyn. [facility], [facility] systems have no available beds. Will continue to look for a beds at this time. <Rosy Mosley MD - Last Filed: 07/28/24 17:52> Vital Signs Vital signs: Initial Vital Signs Temperature 99.5 F 07/28/24 13:56 Temperature Source Temporal Artery Scan 07/28/24 13:56 Pulse Rate 112 H 07/28/24 13:56 Pulse Rhythm Regular 07/28/24 13:56 Pulse Strength 3+ Normal 07/28/24 13:56 Respiratory Rate 18 07/28/24 13:56 Blood Pressure 124/81 07/28/24 13:56 Blood Pressure Mean 95 07/28/24 13:56 Blood Pressure Position Sitting 07/28/24 13:56 Pulse Oximetry 92 07/28/24 13:56 Oxygen Delivery Method Room Air 07/28/24 13:56 Vital Signs Temperature 99.5 F 07/28/24 13:56 Pulse Rate 112 H 07/28/24 13:56 Respiratory Rate 18 07/28/24 13:56 Blood Pressure 124/81 07/28/24 13:56 Pulse Oximetry 92 07/28/24 13:56 Oxygen Delivery Method Room Air 07/28/24 13:56 Temperature 100.7 F H 07/28/24 19:07 Pulse Rate 92 07/28/24 19:07 Respiratory Rate 22 07/28/24 19:07 Blood Pressure 118/72 07/28/24 19:07 Pulse Oximetry 98 07/28/24 19:07 Oxygen Delivery Method Room Air 07/28/24 18:44 Oxygen Flow Rate 2 07/28/24 18:44 <Rosy Mosley MD - Last Filed: 07/28/24 17:52> Initial Vital Signs Temperature 99.5 F 07/28/24 13:56 Temperature Source Temporal Artery Scan 07/28/24 13:56 Pulse Rate 112 H 07/28/24 13:56 Pulse Rhythm Regular 07/28/24 13:56 Pulse Strength 3+ Normal 07/28/24 13:56 Respiratory Rate 18 07/28/24 13:56 Blood Pressure 124/81 07/28/24 13:56 Blood Pressure Mean 95 07/28/24 13:56 Blood Pressure Position Sitting 07/28/24 13:56 Pulse Oximetry 92 07/28/24 13:56 Oxygen Delivery Method Room Air 07/28/24 13:56 Vital Signs Temperature 99.5 F 07/28/24 13:56 Pulse Rate 112 H 07/28/24 13:56 Respiratory Rate 18 07/28/24 13:56 Blood Pressure 124/81 07/28/24 13:56 Pulse Oximetry 92 07/28/24 13:56 Oxygen Delivery Method Room Air 07/28/24 13:56 Temperature 100.7 F H 07/28/24 19:07 Pulse Rate 92 07/28/24 19:07 Respiratory Rate 22 07/28/24 19:07 Blood Pressure 118/72 07/28/24 19:07 Pulse Oximetry 98 07/28/24 19:07 Oxygen Delivery Method Room Air 07/28/24 18:44 Oxygen Flow Rate 2 07/28/24 18:44 <Kevyn Gallegos DO - Last Filed: 07/28/24 21:40> Medications Administered Medications: Discontinued Medications Generic Name Dose Route Start Last Admin Trade Name Freq PRN Reason Stop Dose Admin Sodium Chloride 1,000 mls @ 1,000 mls/hr 07/28/24 14:15 07/28/24 17:26 0.9 % Sodium Chloride 1000 Ml IV 07/28/24 15:14 Infused .Q1H JOSELIN Infusion Piperacillin Sod/Tazobactam 100 mls @ 200 mls/hr 07/28/24 16:35 07/28/24 17:26 Sod 4.5 gm/ Sodium Chloride IVPB 07/28/24 16:36 Infused ONCE ONE Infusion Morphine Sulfate 2 mg 07/28/24 18:04 07/28/24 18:29 Morphine 2 Mg/Ml Inj IVP 07/28/24 18:05 2 mg ONCE ONE Administration Ondansetron HCl 4 mg 07/28/24 14:14 07/28/24 14:42 Ondansetron 2 Mg/Ml Inj IVP 07/28/24 14:15 4 mg ONCE ONE Administration Ondansetron HCl 4 mg 07/28/24 18:24 07/28/24 18:28 Ondansetron 2 Mg/Ml Inj IVP 07/28/24 18:25 4 mg ONCE ONE Administration <Rosy Mosley MD - Last Filed: 07/28/24 17:52> Discontinued Medications Generic Name Dose Route Start Last Admin Trade Name Freq PRN Reason Stop Dose Admin Sodium Chloride 1,000 mls @ 1,000 mls/hr 07/28/24 14:15 07/28/24 17:26 0.9 % Sodium Chloride 1000 Ml IV 07/28/24 15:14 Infused .Q1H JOSELIN Infusion Piperacillin Sod/Tazobactam 100 mls @ 200 mls/hr 07/28/24 16:35 07/28/24 17:26 Sod 4.5 gm/ Sodium Chloride IVPB 07/28/24 16:36 Infused ONCE ONE Infusion Morphine Sulfate 2 mg 07/28/24 18:04 07/28/24 18:29 Morphine 2 Mg/Ml Inj IVP 07/28/24 18:05 2 mg ONCE ONE Administration Ondansetron HCl 4 mg 07/28/24 14:14 07/28/24 14:42 Ondansetron 2 Mg/Ml Inj IVP 07/28/24 14:15 4 mg ONCE ONE Administration Ondansetron HCl 4 mg 07/28/24 18:24 07/28/24 18:28 Ondansetron 2 Mg/Ml Inj IVP 07/28/24 18:25 4 mg ONCE ONE Administration <Kevyn Gallegos DO - Last Filed: 07/28/24 21:40> Medical Decision Making MDM Narrative Medical decision making narrative: Postoperative abscess. Patient will be transferred for continued care. <Rosy Mosley MD - Last Filed: 07/28/24 17:52> Patient signed out to me pending transfer. I did speak to [facility] but they would not have beds until tomorrow. She was placed on the wait list. I then spoke to Dr. Celeste of [facility] in the accepted her for transfer. Patient was given morphine and Zofran while she was waiting for transfer. Her pulse has improved 92. <Kevyn Gallegos DO - Last Filed: 07/28/24 21:40> Lab Data Lab results reviewed: Yes I reviewed the patient's lab results <Rosy Mosley MD - Last Filed: 07/28/24 17:52> Labs: Lab Results 07/28/24 07/28/24 Range/Units 14:14 14:40 Lactate 1.6 (0.5-1.9) mmol/L Total Bilirubin 1.0 (0.1-1.5) mg/dL Direct Bilirubin 0.4 (0.0-0.5) mg/dL AST 40 H (12-35) U/L ALT 35 (4-35) U/L Alkaline Phosphatase 305 H (40-150) U/L C-Reactive Protein 31.0 H (0.5-1.0) mg/dL Total Protein 8.9 H (6.0-8.3) g/dL Albumin 4.4 (3.3-5.0) g/dL Lipase 28 (23-300) U/L Urine Color Yellow (Yellow) Urine Appearance Clear (Clear) Urine pH 7.0 (5.0-8.5) Ur Specific [place] 1.015 (1.000-1.030) Urine Protein 2+ A (Negative) Urine Glucose (UA) Negative (Negative) Urine Ketones 2+ A (Negative) Urine Blood Negative (Negative) Urine Nitrite Negative (Negative) Urine Bilirubin 1+ A (Negative) Urine Urobilinogen 0.2 (0.2-1.0) Ur Leukocyte Esterase Negative (Negative) Urine RBC 0-2 (0-2) Urine WBC 0-2 (0-5) Ur Squamous Epith Cells Few (None-Few) Urine Bacteria Few A (None) Urine HCG, Qual Negative (Negative) <Rosy Mosley MD - Last Filed: 07/28/24 17:52> Lab Results 07/28/24 07/28/24 Range/Units 14:14 14:40 Lactate 1.6 (0.5-1.9) mmol/L Total Bilirubin 1.0 (0.1-1.5) mg/dL Direct Bilirubin 0.4 (0.0-0.5) mg/dL AST 40 H (12-35) U/L ALT 35 (4-35) U/L Alkaline Phosphatase 305 H (40-150) U/L C-Reactive Protein 31.0 H (0.5-1.0) mg/dL Total Protein 8.9 H (6.0-8.3) g/dL Albumin 4.4 (3.3-5.0) g/dL Lipase 28 (23-300) U/L Urine Color Yellow (Yellow) Urine Appearance Clear (Clear) Urine pH 7.0 (5.0-8.5) Ur Specific [place] 1.015 (1.000-1.030) Urine Protein 2+ A (Negative) Urine Glucose (UA) Negative (Negative) Urine Ketones 2+ A (Negative) Urine Blood Negative (Negative) Urine Nitrite Negative (Negative) Urine Bilirubin 1+ A (Negative) Urine Urobilinogen 0.2 (0.2-1.0) Ur Leukocyte Esterase Negative (Negative) Urine RBC 0-2 (0-2) Urine WBC 0-2 (0-5) Ur Squamous Epith Cells Few (None-Few) Urine Bacteria Few A (None) Urine HCG, Qual Negative (Negative) <Kevyn Gallegos DO - Last Filed: 07/28/24 21:40> Imaging Data CT scan - abdomen: Attestation: I have reviewed the pertinent imaging results. <Rosy Mosley MD - Last Filed: 07/28/24 17:52> Radiologist's impression: CT abdomen and pelvis acquired with 75 cc Isovue 370 IV contrast. COMPARISON: July 03, 2024. FINDINGS: Lower chest: Unremarkable. Liver: Probable mild hepatic steatosis. No suspicious hepatic lesions identified. Gallbladder and bile ducts: Cholelithiasis without CT evidence of cholecystitis. No significant intra or extrahepatic biliary ductal dilatation. Pancreas: Unremarkable. No mass or inflammation. Spleen: Unremarkable. Normal in size. No masses. Adrenal glands: Unremarkable. No nodules. Kidneys: Unremarkable. No suspicious masses, stones, or hydronephrosis. GI tract: Mild mucosal enhancement noted in the transverse colon likely reactive. In addition mucosal enhancement and wall thickening in the stomach is identified, similar to prior and likely related to underlying inflammation. Previously identified outpouching at the 1st portion of the duodenum is not visualized currently and may be related to interval repair. Foci of gas are identified adjacent to the duodenum near the inferior margin of the liver (4/70), likely related to recent surgical intervention. Jessica duodenal inflammatory stranding in this region with small fluid as well may be related to underlying mild inflammation and postsurgical changes. Anterior to the stomach, there is a fluid collection measuring approximately 4.3 x 3.6 centimeters (2/7), with fluid and gas and mild peripheral enhancement suspected to be contained perforation versus abscess. This has a small communication to an additional collection which extends anterior to the left hepatic lobe and measures 5.9 x 3.1 x 4.7 centimeters (2/43). Additional smaller loculations extend inferiorly and anteriorly along the anterior abdominal wall again with subtle peripheral enhancement concerning for developing abscesses. Vasculature: Abdominal aorta is normal in caliber. Mesenteric arteries are patent. Lymph nodes: No lymphadenopathy. Peritoneum/Abdominal Wall: As above, multiple loculated collections anterior to the stomach, left hepatic lobe and deep to the midline surgical incision. Gas and fluid are identified within the collections with peripheral enhancement concerning for developing abscesses, or contained perforation. Small foci of gas noted adjacent to the hepatic hilum. No substantial free fluid.. Pelvis: Bladder is collapsed. Uterus is absent. Bones: Unremarkable for age. IMPRESSION: 1. Multiloculated fluid collection with small areas of gas which are situated anterior to the stomach, left hepatic lobe and deep to the surgical incision. These may represent postsurgical forming abscesses, or persistent contained perforation of the stomach/duodenum. Recommend surgical consultation for further evaluation and treatment. 2. Cholelithiasis without CT evidence of cholecystitis. 3. Probable mild hepatic steatosis. <Rosy Mosley MD - Last Filed: 07/28/24 17:52> Discharge Plan Discharge Clinical Impression: Postoperative abscess <Rosy Mosley MD - Last Filed: 07/28/24 17:52> Patient Disposition: Xfer Other <Rosy Mosley MD - Last Filed: 07/28/24 17:52> Condition: Stable <Rosy Mosley MD - Last Filed: 07/28/24 17:52> Prescriptions: No Action pantoprazole [Protonix] 40 mg tablet,delayed release (DR/EC) 40 mg PO DAILY Qty: 60 2RF <Rosy Mosley MD - Last Filed: 07/28/24 17:52> Stand Alone Forms: My[facility] Info Instructions <Rosy Mosley MD - Last Filed: 07/28/24 17:52>
[2024-07-28] MEDS: ONDANSETRON 2 MG/ML inj 4 MG IVP ×2 (14:42→18:28)
[2024-07-28] MEDS: 0.9 % SODIUM CHLORIDE 1000 ml 1,000 ML IV (14:42)
[2024-07-28 14:55] LABS: Lactate* 1.6 mmol/L (0.5-1.9)
[2024-07-28 15:11] LABS: Albumin* 4.4 g/dL (3.3-5.0)
[2024-07-28 15:14] LABS: Alanine Aminotransferase* 35 U/L (4-35); Alkaline Phosphatase* 305 U/L (40-150); Aspartate Amino Transferase* 40 U/L (12-35); Bilirubin Direct* 0.4 mg/dL (0.0-0.5); Lipase* 28 U/L (23-300); Total Protein* 8.9 g/dL (6.0-8.3)
[2024-07-28 15:51] LABS: Appearance Urine Clear (Clear); Bilirubin Urine 1+ (Negative); Blood Urine Negative (Negative); Color Urine Yellow (Yellow); Glucose Urine Negative (Negative); Ketones Urine 2+ (Negative); Leukocyte Esterase Urine Negative (Negative); Nitrite Urine Negative (Negative); Protein Urine 2+ (Negative); Specific Gravity Urine 1.015 (1.000-1.030); Urobilinogen Urine 0.2 (0.2-1.0)
[2024-07-28 16:32] LABS: Bacteria Urine Few; RBC Urine 0-2 (0-2); Squamous Epithelial Cell Urine Few (None-Few); WBC Urine 0-2 (0-5)
[2024-07-28] MEDS: PIPERACILLIN/TAZOBACTAM 4.5 GM in 0.9 % SODIUM CHLORIDE Mini-bag 100 ML IVPB (16:48)
[2024-07-28 17:15] LABS: Ur HCG Qualitative* Negative (Negative)
[2024-07-28] MEDS: MORPHINE 2 MG/ML inj IVP (18:29)
[2024-07-28] MEDS: MORPHINE 4 MG/ML INJ IVP (21:53)
== END 2024-07-28 22:00 | disposition other institution (70) ==
PROVIDERS: Family Medicine; Emergency Provider Student in an Organized Health Care Education/Training Program
DX: K68.11 Postprocedural retroperitoneal abscess (principal)
CPT/HCPCS: 36415; 74177; 80076; 81001; 81025; 83605; 83690; 86140; 87086; 94761; 96365; 96375; 99284; 99285; J2270; J2405; J2543; J7030; Q9967

== ENCOUNTER 2024-07-28 21:59 | Outpatient (CLI) | payer OTHER, SELFPAY ==
--- OUTSIDE RECORDS SUMMARY | 2006-06-24 10:21 | XMS_ITS | Continuity of Care Document ---
Author Organization GIN Torres Address [address] [facility] [address] [place] [address] Phone Care Team Providers Care Mission Systems Engineer Name Role Phone Elizabeth Wang PA-C Unavailable Unavailable Procedures Procedure Date Offic/outpt E&m Estab Low-mod 7 Offic/outpt E&m Estab Minor 10 07 Injection One Or Two Groups Injection One Or Two Groups Offic Cons New/estab Mod-hi 60 07 Advance Directives Directive Yes / No Effective Date File Name No Information Encounters Encounter Description Practice Location Reason(s) For Visit Diagnoses Date Provider Providers Copied on Encounter Offic/outpt E&m Estab Low-mod GIN Torres, [address] [facility] [address], [place], [id number], tel:[phone] [facility] No Information Felipe Johnson. [address] [facility] [address], [address], [place]. tel:[phone] Referring Provider: Shaun Berman, [address] [place], [address]. tel:[phone] Offic/outpt E&m Estab Minor 10 GIN Torres, [address] [facility] [address], [place], [id number], tel:[phone] [facility] No Information [address]. [address] [facility] [place] [place], [facility], . tel:[phone] Referring Provider: TUTU Posada, [address] [facility] [address], [place], [place], [id number], tel:[phone] [facility] No Information [address] River Dunn. [address] , [place], [place], [facility], . tel:[phone] Referring Provider: DARIO BRUCE Offic Cons New/estab Mod-hi [address] [facility], [address], [place], [place], [id number], tel:[phone] [facility] No Information 7 Felipe Johnson. [address] [facility], [address], [place], [address], . tel:[phone] Referring Provider: DARIO BRUCE Family History Family Member Type Diagnosis Age At Onset No Information Payers Payer name Insurance type Covered republican ID Authoriza tion(s) [employer] [id number] Social History Type Description Quantity Date Captured Comments Sex Female Smoking Status No Information Chief Complaint And Reason For Visit No Information Reason For Referral Reason For Referral No Information History Of Present Illness Encounter Date Complaint History Of Prese nt Illness No Information Functional Status Date Functional Assessmen t No Information Instructions Date Instruction Additional Infor mation No Information Assessments Type Assessment Date No Information Patient Care Teams Name Effective Dates (start - stop) Status Members No Information
--- OUTSIDE RECORDS SUMMARY | 2006-06-24 10:21 | XMS_ITS | Continuity of Care Document ---
Author Organization GIN Torres Address [address] [facility] [address] [place] [address] Phone Care Team Providers Care Aircraft Maintenance Instructor Name Role Phone Elizabeth Wang PA-C Unavailable [...] Offic/outpt E&m Estab Low-mod GIN Torres, [address] [facility] [address], [place], [id number], tel:[phone] [facility] No Information Felipe Johnson. [address] [facility] [address], [address], [place]. tel:[phone] Referring Provider: Shaun Berman, [address] [place], [address]. tel:[phone] Offic/outpt E&m Estab Minor 10 GIN Torres, [address] [facility] [address], [place], [id number], tel:[phone] [facility] No Information [address] River Dunn. [address] [facility] [place], [facility], . tel:[phone] Referring Provider: TUTU Posada, [address], [place], [place], [id number], tel:[phone] [facility] No Information [address] River Dunn. [address] , [place], [place], [facility], . tel:[phone] Referring Provider: DARIO BRUCE Offic Cons New/estab Mod-hi [address] [facility], [address], [place], [place], [id number], tel:[phone] [facility] No Information [address] [facility], [address], [place], [address], . tel:[phone] Referring Provider: DARIO BRUCE Family History Family Member Type Diagnosis Age At Onset No Information Payers Payer name Insurance type Covered republican ID Authoriza tion(s) [employer] [id number] Social History Type Description Quantity Date Captured [...]
--- OUTSIDE RECORDS SUMMARY | 2024-07-28 23:12 | XMS_ITS | Encounter Summary ---
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 Name Role Phone None Reported, Pcp Primary Care Provider Unavail able Reason for Visit * Auth/Cert (Routine) Specialty Diagnoses / Procedures Referred By Contac t Referred To Contact Diagnoses Ulcer Gastric Acute With Perforation (HCC) Abdominal pain post op problem Procedures Inpatient Referral ID Status Reason Start Date Expiration Date Visits Re quested Visits Authorized [id number] 1 1 Encounter Details Date Type Department Care Team (Latest Contact Info) Description 07/28/2024 11:12 PM CDT - Present Hospital Encounter [facility], [facility], [facility], Third Floor [address] [place] [address] Baljit Valentin M.D. [address] [place] [address] Nicotine Dependence Cigarettes With Withdrawal (Primary Dx) Social History Tobacco Use Types Packs/Day Years Used Date Smoking Tobacco: Former Cigarettes Q uit: 07/03/2024 Smokeless Tobacco: Never Tobacco Cessation:Counseling Given: Not Answered [facility] Utilities Answer Date Recorded In the past 12 months has e electric, gas, oil, or water company threatened to shut off services in your home? No 07/29/2024 Humiliation, Afraid, Rape, and Kick questionnair e Answer Date Recorded Within the last year, have y ou been afraid of your partner or ex-partner? No 07/29/2024 Within the last year, have y ou been humiliated or emotionally abused in other ways by your partner or ex-partner? No Within the last year, have y ou been kicked, hit, slapped, or otherwise physically hurt by your partner or ex-partner? No 07/29/2024 Within the last year, have y ou been raped or forced to have any kind of sexual activity by your partner or ex-partner? No 07/29/2024 Hunger Vital Sign Answer Date Recorded Within the past 12 months, y ou worried that your food would run out before you got the money to buy more. Never true 07/30/19 Within the past 12 months, t he food you bought just didn't last and you didn't have money to get more. Never true 07/29/2024 PRAPARE - Transportation Answer Date Re corded In the past 12 months, has l ack of transportation kept you from medical appointments or from getting medications? No 07/11 In the past 12 months, has l ack of transportation kept you from meetings, work, or from getting things needed for daily living? No 07/29/2024 Dental Answer Date Recorded Dental: Regular Dentist Unknown 07/29/19 Housing Stability Answer Date Recorded What is your living situation today? I have a [facility] place to live 07/29/2024 Comments No Sex and Gender Information Value Date Recorded Sex Assigned at Not on file Legal Sex Female 6:31 PM CDT Gender Identity Not on file Sexual Orientation Not on file documented as of this encounter Last Filed Vital Signs Vital Sign Reading Time Taken Comments Blood Pressure 118/68 07/29/2024 5:20 PM CDT Pulse 91 07/29/2024 5:20 PM CDT Temperature 36.8 C (98.2 F) 07/29/2024 1:20 PM CDT Respiratory Rate 16 07/29/2024 1:20 PM CDT Oxygen Saturation 90% 07/29/2024 5:20 PM CDT Inhaled Oxygen Concentration - - Weight 70.9 kg (156 lb 4.9 oz) 07/28/2024 11:20 PM CDT Height 160 cm (5' 3) 07/28/2024 11:20 PM CDT Body Mass Index 27.69 07/28/2024 11:20 PM CDT documented in this encounter Progress Notes * Shaan Li, Pharm.D., R.Ph., BCPS - 07/29/2024 8:28 AM CDT Pharmacist Progress Note Reason for admission: 49 yo F admitted for evaluation of abdominal pain. PMH: celiac disease and recent perforated gastric ulcer requiring surgical intervention 07/03/2024, in addition to history of esophagitis, gastritis, and duodenitis from alcohol use requiring admission in 2017. OBJECTIVE Neuro: pain scores 0-4 Resp: RA CV: hemodynamically stable Neph: Estimated Creatinine Clearance: 82.8 mL/min (by C-G formula based on SCr of 0.9 mg/dL). 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 Pain control: hydromorphone 0.2 mg IV q1hr prn severe pain Tobacco Dependence - nicotine patch 14 mg daily Celiac disease - will try to avoid gluten-containing medications. Shaan Abdalla Pharm.D., R.Ph., BCPS documented in this encounter H&P Notes * Rosa Valle M.D. - 07/29/2024 1:18 AM CDT This is a supervisory note for Dr. Womack. I have independently assessed the patient, reviewed pertinent labs and diagnostics from admission, and have confirmed the louis portions of the history and physical exam. I agree with the excellent note from Dr. Womack. PATY Bertrand is a 49 y.o. female who was admitted 07/28/2024 for abdominal pain with likely abdominal abscess. PMH is significant for celiac disease and recent perforated gastric ulcer requiring surgical intervention 07/03/2024, in addition to history of esophagitis, gastritis, and duodenitis from alcohol use requiring admission in 2017. Her operation had to be converted from laparoscopic to an open procedure, although the patient did well immediately postoperatively. Then, Friday evening, 07/25, the patient notes that she began to experience chills and sweating. Then Friday morning, she experienced initially yellow, but then progressively bilious vomiting with anyp.o. intake, as well as a sharp, colicky epigastric pain that has progressively worsened since its onset. She describes some radiation to her upper back as well as some lower abdominal cramping in addition to the sharp epigastric pain. She has also experienced diarrhea, which ultimately prompted her presentation to the emergency department at an outside ED the evening of 07/28. The patient presented to the ED with tachycardia but was otherwise vitally stable and afebrile. Laboratory evaluation significant for leukocytosis (13.7), CRP elevation (31). CT imaging demonstrated multiple fluid collections in the anterior abdomen with small collections of gas, suspected to be abscesses secondary to prior gastric ulcer. Due to lack of local IR availability for drain placement overnight, the patient was transferred to [facility] for further evaluation and management. Prior to transport, the patient was treated with morphine as well as IV antibiotics (unable to review medical documentation regarding which antibiotic). Upon arrival, the patient repeated the story above and was overall clinically stable and in no acute distress. She confirmed her only daily medication prior to admission is pantoprazole, which she started in June following discovery of her gastric ulcer. OBJECTIVE BP 119/68 (BP Location: Right arm;Upper, Patient Position: Lying) Pulse 94 Temp 37.1 ??C (Oral) Resp 16 Ht 160 cm Wt 70.9 kg SpO2 96% BMI 27.69 kg/m?? PHYSICAL EXAM GENERAL: well appearing female in no acute distress HEENT: EOMI. Atraumatic and normocephalic. RESPIRATORY: Patient breathing comfortably on room air CARDIOVASCULAR: No peripheral edema appreciated ABDOMEN: Firm, palpable lesion within the epigastrium, approximately 5x6cm without appreciated fluctuance. Tenderness to moderate palpation of the abdomen without rebound tenderness or rigidity. SKIN: Well healing midline epigastric abdominal skin incision appreciated with erythema overlying. NEUROLOGIC: Alert and appropriately conversive, CN III-XII are grossly in tact. Patient moves all extremities spontaneously. ASSESSMENT / PLAN #1 Chronic Or Unspecified Gastric Ulcer With Perforation (HCC) #2 Abscess Intra Abdominal (HCC) #3 Nausea And Vomiting #4 Celiac Disease #5 Pain Epigastric Madhavi Bertrand is a 49 y.o. female who was admitted 07/28/2024 for abdominal pain with likely abdominal abscess. PMH is significant for celiac disease and recent perforated gastric ulcer requiring surgical intervention 07/03/2024, in addition to history of esophagitis, gastritis, and duodenitis from alcohol use requiring admission in 2017, although she has not used alcohol heavily in several years. Her operation had to be converted from laparoscopic to an open procedure, although the patient did well immediately postoperatively. I suspect the patient's abdominal pain and indurated lesion on exam could be due to abdominal abscesses secondary to her recent surgical fixation of ruptured gastric ulcer. Given intolerance of PO intake and lack of fluctuance on exam, as well as recent open abdominal surgery, there is also concernfor potential herniation of bowel as the cause for her symptoms/exam findings. We will ask radiology to perform an overread of the CTAP from the outside ED and keep the patient NPO. Pending results of CTAP, we will consult CRS (if hernia present) vs. IR (abdominal abscess drain placement). We will treat the patient with enteric-directed antibiotic therapy; although, thankfully the patient is acutely well appearing and I am not concerned for severe infection or sepsis at this time. Rest of plan below: PLAN: Abdominal pain, nausea, vomiting, abdominal abscesses - Likely secondary to recent gastric ulcer with perforation and surgical intervention CT AP over-read to assess for possible bowel herniation given reported history of bilious vomiting and indurated, palpable abnormality on abdominal exam CRS consult vs. IR consult for placement of abdominal drain pending CT results NPO Patient given one dose of antibiotics in the ED - unclear which agent was used based upon current documentation. Will continue antibiotics here with ceftriaxone + metronidazole for enteric coverage given imaging findings and reported history of chills/sweats Labs including CBC, BMP, Mg, Phos, albumin, LFTs, INR, lactate, blood cultures pending Will consider EGD with H. 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 * Sylvester Womack M.D., M.S. - 07/29/2024 12:50 AM CDT [facility] Medicine 1 ([facility]) Admission Note SUBJECTIVE CHIEF COMPLAINT: Abdominal Pain HISTORY OF PRESENT ILLNESS Ms. Madhavi Bertrand is a 49 y.o. female who presents with abdominal pain. Medical comorbidities notable for significant prior smoking history, celiac disease. Patient has a recent history of gastric ulcer with a perforation, found on CT 07/03/24 after experiencing abdominal pain. She pursued surgical repair at that time, which may have been a patch, healingfrom which was initially uncomplicated. However, over the last few days, she has been experiencing i ncreasing pain, intermittent fevers, and vomiting. She describes that, starting FridayJuly 25, she had some chills though did not take her temperature. Following that, she started vomiting frequently and was unable to take any p.o. including liquids. This started as yellow and subsequently her emesis became green. Her pain increased over this time, with sharp pain in her epigastric area and left upper quadrant, and some cramping pain in the lower bilateral quadrants. She has had some bowel movements during this time, most recently diarrhea on the morning of the . She has not tolerated food since last Friday. She presented to her local hospital in [place] for further evaluation. ED Course: In the emergency department, patient was noted to be tachycardic but otherwise vitally stable. Temperature was 99.5 F. White count 13.7, CRP 31. CT scan obtained demonstrates multiple fluid collections in the anterior abdomen with small collections of gas, suspected on outside read to be abscesses contiguous with the prior ulcer. She reports, though we are not able to confirm, receiving morphine as well as an antibiotic medication by IV. Patient was deemed to require IR drain placement in theseabscesses. Without local IR availability, patient was transferred to [facility] as a direct admit to internal medicine. Baseline Functional Status and Mobility: Full Substances: Alcohol history - rare drinking, none in a typical month. Nicotine - 1ppd smoking from teenage years through until June, quit around surgery. OBJECTIVE PHYSICAL EXAMINATION General: Alert, interactive, not acutely ill. Lungs: Breathing comfortably in room air. Speaking in full sentences without increased work of breathing. Abdomen: 7-10 cm incision with surrounding staple amado in epigastric area, healing without evidence of dehiscence. Erythematous patch, approximately 4 cm in diameter slightly to the left of this. Epigastric area under these landmarks is firm to palpation and notably tender. Otherwise mild RLQ tenderness. No rebound tenderness. No other organomegaly or discrete firmness noted. Mental: Mood and affect congruent. Alert and oriented. Attention intact. No evidence of disorganized thinking. ASSESSMENT / PLAN Ms. Bertrand is hospitalized on [facility] 1 ([facility]) for evaluation and management of epigastric pain setting of recent gastric ulcer perforation and surgical repair. With her history of localized perforation with recent surgery, infection vs mechanical obstruction lead our differential. Her outside CTreading described anterior pockets with notable air-fluid levels as abscesses, and by my read I cannot see connection with other bowel, reassuring against small bowel obstruction. However, in a post-surgical patient with now bilious vomiting and inability to tolerate PO, SBO remains high on my differential. She appears systemically well and so we will start with an overread of her outside CT in or fco to fully rule out bowel entrapment. Her exam is concerning for incarcerated bowel given her focal tenderness and firmness. I do not feel fluctuance that might be expected with an abscess. Labs, including WBC, lactate, will be useful in stratifying risk and supporting some of these diagnoses. Depending on the CT read, we will consider engaging TCGS for surgical site hernia workup versus IR drain placement as anticipated by OSH. Underlying gastric ulcer causes are also lacking; we will consider GI involvement and EGD to work up this ulcer, depending on CT findings and safety of insufflation. # Gastric Ulcer, with Perforation # S/p Gastric Ulcer Repair # Intraabdominal Abscess # Abdominal Pain # Bilious Vomiting # History of Celiac Disease C/s: - Consider TCGS - Consider IR drain placement - Consider GI consult for possible EGD Dx: - CBC - BMP - Mg - Phos - Albumin - LFTs - INR - Lactate - Blood Cultures - Consider EGD with H pylori biopsies - NPO pending CT read - CT A/P overread Tx: - Start ceftriaxone (07/28 - present) - Start metronidazole (07/28 - present) - Start Protonix 40 mg IV daily Chronic Prior smoking history, will supply 14 mcg nicotine patch VTE prophylaxis: SQH Code status: Full Surrogate Decision Maker: MotherRonna Living Situation Before Admission: Independent Discharge Plan (equipment, therapy, and facility): Pending course, likely returning home without increase in services Plan will be discussed with [facility] ([facility]) Sales Support Specialist, Dr. Valentin,within 24h of admission. Please page the [facility] ([facility]) service pager at [phone] with any questions. Sylvester Womack M.D., M.Sc. PGY-1, Internal Medicine documented in this encounter Consult Notes * Anabella Blake M.A., C.T.T.S., M.S.W. - 07/29/2024 2:42 PM CDTAssociated Order(s): Nicotine Dependence consult (hospital) SUBJECTIVE Nicotine Dependence consult (hospital) Referring Provider: Baljit Valentin M.D. REASON FOR CONSULT Admitting Service: Hospital Internal Medicine Reason for Consult: Tobacco Use Disorder HISTORY OF PRESENT ILLNESS Madhavi Bertrand is a 49 y.o. female who was seen at [place] and is being evaluated for tobacco use disorder. The patient shared information about her tobacco use history and quitting smoking on July 03, 2024 after a recent hospitalization. The patient reflected on a conversation she had with a resp iratory therapist, which providing her with an opportunity to look at quitting smoking in a way shehad not previously. The patient shared she has been using a 21 mg nicotine patch since that hospitalization and has remained tobacco free. The patient reported there were a few days she did not use anicotine patch but asked that a 14 mg nicotine patch be used during her current hospitalization. Discussion was had about the progress the patient has already made with her quit plan and her motivation to remain tobacco free. The patient shared she had not noticed many triggers to smoke after she returned home from her previous hospitalization and also reflected on not being engaged in activitiesshe typically would be. The patient reflected on wondering as she recovers from her surgery and starts feeling better whether she may notice increased triggers to smoke. Discussion was had about the patient giving thought to how she wants to approach triggers and cravings to smoke and have a plan for what distractions, supports, and alternative focus may be helpful in those moments. The patient re flected on her priority being to support her health at this time and the difference this makes whencompared to other quit attempts. The patient expressed interest in a prescription being sent for 14mg nicotine patches and gum to her local pharmacy to have available to help support her continued tobacco quit plan after discharge from the hospital. The patient shared preferring to use 14 mg nicotine patches at this time. The patient denied experiencing any side effects with the nicotine patch and was informed if she experiences any concerning side effects when using nicotine replacement she should stop using it and be seen by a medical provider. The patient expressed understanding and agreement with this plan. Discussion was had about scheduling a follow up visit and the patient shared she would contact the [facility] with any future questions. Tobacco use history: Patient previously averaged 20-30 cigarettes per day, and usually smoked within 5 minutes of waking. Madhavi started using tobacco at the age of 13. She has made previous quit attempts with her longest period of abstinence being 1-3 months. Madhavi has tried stopping using various methods such as nicotine patches, nicotine gum, Buproprion, and Chantix Motivation: Madhavi shares that she continues to be very motivated to remain tobacco free. Her reasons to quit are to be around for family, to breathe better, and to improve health. Perceived Barriers to quitting: None identified during this visit. OBJECTIVE The patient is currently using a nicotine patch and denied any side effects from the nicotine patchin the past. [facility] staff sent a message to the patient's inpatient medical provider Dr. Meng to confirm the patient is able to continue to use nicotine patches and gum after discharge from the hospital. ASSESSMENT / PLAN 1. Tobacco use disorder Ms. Bertrand quit smoking on July 03, 2024. The patient is currently using a 14 mg nicotine patch, which can be continued as the patient's preference. Medication Plan: In hospital medications to be provided by the primary service team Discharge medications will be prescribed by a medical provider at the [facility] Nicotine patch: 14 mg Initial doses for 4-6 weeks then taper dose in 7 to 14 mg steps every 2 to 4 weeks based on patient's report of withdrawal symptoms, urges, and comfort. Adverse effects may include nausea (reduce patch dosage), local patch reaction such as redness or itching (use of topical hydrocortisone cream and rotating patch can reduce local reaction), severe site reaction (e.g. edema, blistering) Nicotine gum: 2 m-2 pieces every 1-2 hours as needed to control craving. Adverse effects may include mouth soreness, nausea (which tends to lessen over time, though dose should be reduced if nausea develops). I advised the patient that if she experiences any adverse effects from the medication, that she should stop taking and contact their health care provider. This medication plan is within approved guidelines and patient was screened for contraindications. All questions were answered to the best of my ability. Behavioral Plan: Planning for triggers, changing routines and getting support were discussed. Strategies such as distraction , keep hands busy, use NRT, alternative substitutes , and seek support were discussed to help manage urges and cravings. Follow-Up: I encouraged Madhavi Bertrand to contact me with any questions or concerns. The patient was provided with the following education materials: My Smoke Free Future ([id number]) and Medications to Help You StopUsing Tobacco ([id number]) as well as the [facility] contact information. Patient declined to schedule a follow-up appointment, but will receive a follow- up phone call in 30days.. Patient is ready to learn, no apparant barriers to learning were identified. Patient understands and agrees with plan. 25 minutes of our visit was spent on tobacco use disorder counseling. Anabella Blake M.A., Natalya.T.T.Aydin., M.S.W. 07/29/2024 2:42 PM CDT * Zuleyma Wolff M.S. - 07/29/2024 1:22 PM CDTAssociated Order(s): IP CONSULT TO DIETITIAN Clinical Nutrition: Initial Assessment Clinical Nutrition was requested to evaluate patient for positive nursing baseline nutrition screenwith a MST score of 2 or greater Completed visit with patient today as part of face to face care. SUBJECTIVE Ms. Bertrand is a 49 y.o. female admitted for abdominal pain with likely abdominal abscess. PMH is significant for celiac disease and recent perforated gastric ulcer requiring surgical intervention 07/03/2024, in addition to history of esophagitis, gastritis, and duodenitis from alcohol use requiring admission in 2017. Pertinent History: Medical History[1] Surgical History[2] Current Nutrition: Madhavi is currently NPO for imaging. She notes that she is feeling a bit better today. IV fluids running. Unclear nutrition plan at this time. She was curious about potassium containing foods and ways to improve her over healthy intake. Nutrition Prior to Admission: Friday morning, she experienced initially yellow, but then progressively bilious vomiting with any p.o. intake, as well as a sharp epigastric pain that has progressivelyworsened since its onset. She notes she was eating normally prior. She has made recent changes suchas no caffeine, no smoking, and eating more healthy options instead of mountain dew and chips. Food Allergies/Intolerances: Allergies[3] OBJECTIVE Current nutrition orders: Dietary Orders (From admission, onward) Start Ordered 07/29/24 0135 No oral nutrition (NPO Orders) Diet effective now 07/29/24 0134 Pertinent Labs: Last 3 results Lab Units 07/29/24 0814 07/29/24 0044 SODIUM P mmol/L -- 135 SODIUM mmol/L 137 -- POTASSIUM mmol/L 3.6 -- POTASSIUM P mmol/L -- 3.3* CHLORIDE P mmol/L -- 95* CHLORIDE mmol/L 97* -- BUN P mg/dL -- 16 BUN mg/dL 13 -- CREATININE mg/dL 0.83 0.90 PHOSPHORUS INORGANIC P mg/dL -- 3.7 PHOSPHORUS INORGANIC mg/dL 2.6 -- CALCIUM P mg/dL -- 9.3 CALCIUM mg/dL 8.6 -- MAGNESIUM RL mg/dL -- 1.9 Chewing and Swallowing: no known issues. GI Function: , , Tube Information: n/a Edema: , , , , , , Integumentary/Wounds: Lines/Drains/Airways None Medications: Current Medications[4] Anthropometrics: Height: 160 cm Admission Weight: 70.9 kg (07/28/2024) Current Weight: 70.9 kg BMI (Calculated): 27.7 kg/m?? Weight change since admission: 0 kg Net IO Since Admission: 1,250 mL [07/29/24 1220] Weight history: Patient reports losing 20 pounds since surgery in June. No weight history to assess in the last year. Wt Readings from Last 12 Encounters: 07/28/24 70.9 kg Per Care Everywhere: 06/29/2016 170 lb 77.111 kg Standing 06/28/2016 170 lb 77.111 kg STATED 12/07/2015 181 lb 4 oz 82.214 kg ACTUAL 04/13/2012 164 lb 8 oz 74.617 kg ACTUAL 04/24/2010 177 lb 80.287 kg (None) ASSESSMENT / PLAN Nutrition Diagnosis: Inadequate oral intake related to acute illness as evidenced by poor intakes/vomiting since Friday. Initiated Malnutrition Assessment: 07/29 ASPEN Criteria of Malnutrition: Nutritional Status: Malnutrition criteria not met Malnutrition in the Context of: Acute Illness or Injury Based on: Energy Intake: No Change (poor intake n/v for 3 days) Interpretation of Weight Loss: Unable to Assess (limited wt hx) Body Fat: Normal Muscle Mass: Normal Fluid Accumulation: Absent Reduced Kit Assembler Strength: Not applicable Estimated Needs: Total Calorie Needs: 8838-7409 calories/day Method to Estimate Energy Needs: kcal/kg (20-25 kcal/kg) Weight Used for Equation Calculations: 70.9 kg Total Protein Needs: 71 - 106 grams/day (Method to Estimate Protein Needs (g/kg): 1 - 1.5 gm/kg) Weight Used to Calculate Protein Needs (Kg): 70.9 kg Nutrition Intervention: Interventions: Other (per clinical course) Monitoring/Evaluation: Nutrition parameter to monitor: Diet Progression/NPO Status, Weight Status, Pertinent Labs, Nausea/Vomiting, and Constipation/Diarrhea Desired Outcome: Improve nutritional status and promote favorable weight trending Advance diet per service when medically able Maintain weight Recommendations: Advance oral diet a able. Recommend calorie containing IV fluids while NPO with daily MVI. If unable to advance diet in 1-2 days consider alternative forms of nutrition. Clinical Nutrition will continue to follow. For questions about patient's nutritional care please contact pager [phone] on weekdays 07:30-16:00 or [phone] on weekends/holidays ([facility]) [phone]. [1] Past Medical History: Diagnosis Date Celiac Disease [2] No past surgical history on file. [3] Allergies Allergen Reactions Bee Venom Protein (Honey Bee) Hives only, no other systemic symptoms Gluten Other (see comments) Vomiting/Diarrhea [4] Current Facility-Administered Medications: acetaminophen tablet 650 mg (TylenoL), 650 mg, oral, Q4H PRN, Sylvester Womack M.D., M.S., 650 mg at 07/29/24 0121 cefTRIAXone in dextrose (iso osm) IVPB 2 g (Rocephin), 2 g, intravenous, Q24H, Sylvester Womack M.D., M.S., Last Rate: 200 mL/hr at 07/29/24 0109, 2 g at 07/29/24 0109 D5W and NaCl 0.45 % infusion, 75 mL/hr, intravenous, Continuous, Chey Carbajal M.D., Last Rate: 75 mL/hr at 07/29/24 0933, 75 mL/hr at 07/29/24 09 D5W infusion, 1-999 mL/hr, intravenous, PRN, Baljit Valentin M.D. HYDROmorphone (PF) injection 0.2 mg (Dilaudid), 0.2 mg, intravenous, Q1H PRN, Sylvester Womack M.D., M.S., 0.2 mg at 07/29/24 0933 iohexoL (Omnipaque) dilution solution 9 mg iodine/mL, 495-9,000 mg, oral, Once in imaging, Yasmeen Rodriguez, P.A.-C., M.S. iohexoL 300 mg iodine/mL solution 1-200 mL (Omnipaque), 1-200 mL, intravenous, Once in imaging, Yasmeen Rodriguez, P.A.-C., M.S. metroNIDAZOLE in NaCl (iso osm) IVPB 500 mg (FlagyL), 500 mg, intravenous, Q8H, Sylvester Womack M.D., M.S., Last Rate: 200 mL/hr at 07/29/24 0801, 500 mg at 07/29/24 0801 NaCl 0.9% infusion, 1-999 mL/hr, intravenous, PRN, Baljit Valentin M.D. NaCl 0.9% infusion, 1-999 mL/hr, intravenous, PRN, Baljit Valentin M.D. naloxone injection 0.1 mg (Narcan), 0.1 mg, intravenous, Q5 Min PRN, Sylvester Womack M.D., M.S. nicotine 14 mg/24 hr 1 patch (Nicoderm CQ), 1 patch, transdermal, Daily, Sylvester Womack M.D., M.S., 1 patch at 07/29/24 0801 ondansetron (PF) injection 4 mg (Zofran), 4 mg, intravenous, Q6H PRN, Tate Meng M.D., 4 mg at 07/29/24 0933 pantoprazole injection 40 mg (Protonix), 40 mg, intravenous, Q24H JOSELIN, Sylvester Womack M.D., M.S.,40 mg at 07/28/24 2357 sodium chloride (PF) 0.9 % injection 1-100 mL, 1-100 mL, intravenous, Once, Yasmeen Rodriguez P.A.-C., M.S. sodium chloride 0.9 % injection 10 mL, 10 mL, intravenous, PRN, Baljit Valentin M.D. sodium chloride 0.9 % injection 3 mL, 3 mL, intravenous, PRN, Baljit delatorre M.D. sodium chloride 0.9 % injection 3 mL, 3 mL, intravenous, Q24H [facility], Baljit Valentin M.D., 3 mL at07/29/24 0801 * June Niño M.D. - 07/29/2024 10:35 AM CDTAssociated Order(s): IP CONSULT TO GENERAL SURGERY GENERAL SURGERY CONSULT Hospital Day: 2 Reason for consult: Outside gastric perf closure (07/03/24) c/b abscess vs SBO - CT overread pending. Firmness under surgical site, stable HPI: Madhavi Bertrand is a 49 y.o. female who presents with a few days of nausea, increased abdominal pain, and emesis. She generally healthy female with a history of celiac disease and prior tobacco use who unfortunately had a perforated gastric ulcer in June status post repair on 07/03 the a an upper midline incision, possibly with a Kalyan patch (operative note not available). She was discharged a few days after the surgery after having an intra-abdominal drain removed and repeat imaging. She reports doing well at home, with well controlled pain and a normal diet until a few days ago when she began to experience epigastric pain. This progressed to nausea and bilious emesis. She also reports subjective feversand chills. She presented to her local emergency department where CT abdomen and pelvis with IV contrast was obtained which shows a complex multiloculated fluid collection anterior to the stomach that extends over the left hepatic lobe. Her incision appears to be intact. She has mild leukocytosis of 10.1, other labs are unremarkable. She was transferred to [facility] for ongoing management. Currently NPO and on ceftriaxone/Flagyl. Patient does not take anticoagulants, antiplatelets, or immunosuppressants. Prior to perforation, she had been taking Vanquish (aspirin/acetaminophen/caffeine) for headaches in smoking. She quit using tobacco after surgery. She shares that she was tested in the hospital for H pylori which was negative. Has been taking her PPI since discharge. Past Surgical History: See HPI, total abdominal hysterectomy Social History: Former smoker ROS A complete 10 system review of systems was completed. Pertinent positive and negative are noted in the HPI above. OBJECTIVE Temperature: [37.1 ??C-38 ??C] 38 ??C Heart Rate: [94] 94 Resp Rate: [16-18] 16 Blood Pressure: (104-123)/(63-86) 123/63 SpO2: [94 %-96 %] 95 % Flow Rate (L/min): [2 L/min] 2 L/min Pulse Rate: [93-109] 104 Physical Exam: General: Alert and oriented, no acute distress, appropriate affect HEENT: No jaundice Cardiopulmonary: Breathing comfortably on room air Abdomen: Soft, nondistended, mildly tender to palpation around the incision which has underlying fullness but no fluctuation. The incision is very well approximated and healing appropriately without any discharge, small patch of erythema ASSESSMENT / PLAN #1 Chronic Or Unspecified Gastric Ulcer With Perforation (HCC) #2 Abscess Intra Abdominal (HCC) #3 Nausea And Vomiting #4 Celiac Disease #5 Pain Epigastric Madhavi presents with a clinical picture and imaging consistent with either a postsurgical intra-abdominal abscess or ongoing leak from her gastric perforation and subsequent repair. In order to differentiate between the two, she should have CT of the abdomen with oral contrast. Will also require drainage of this fluid collection with fluid studies which ideally can be accomplished by Interventional Radiology. She should remain NPO until both of these are completed. Okay to continue ceftriaxone and Flagyl. Would be incredibly helpful to obtain her outside hospital records including her operative report, H pylori testing, and any infectious disease studies. General surgery will continue to follow along. The patient was discussed with Dr. Grande who agrees with the findings and plan. Lydia Niño M.D. Cosigned by Alan Grande M.D. at 07/29/2024 11:19 AM CDT Associated attestation - Alan Grande M.D. - 07/29/2024 11:19 AM CDT Reviewed and discussed with Dr. Niño. 49-year-old female with recent operative exploration for gastric perforation at an outside hospital. Initially she was defervescing but began having increased epigastric abdominal pain. Interval imaging demonstrates a complex loculated fluid collection anterior to the stomach and left lateral sector of the liver. I agree with Dr. Niño's assessment and plan of care recommendations We recommend drain placement, enteric contrasted CT scan, and early sinogram. documented in this encounter Miscellaneous Notes * Hospital Course - Tate Meng M.D. - 07/29/2024 4:42 PM CDT Background Madhavi Bertrand is a 49 y.o. female who was admitted with and found to have . Medical comorbidities are notable for . Prior to Admission ED Course Vitals: Labs: Imaging/EKG: Interventions: Patient was subsequently admitted to service for further workup and management of . Medicine 1 Service Course (07/28 - ) Local imaging over-read was concerning for recurrence of perforation versus gastric leak versus abscess. General surgery was consulted and recommended proceeding with CT abdomen and pelvis with oral contrast. The CT demonstrated . CT-guided drain was placed on . Disposition Patient was determined to be medically stable for discharge to on . documented in this encounter Plan of Treatment Pending Results Name Type Priority Associated Diagnoses Date /Time Bacteria / Ayana Culture, Blood #1 Microbiology STAT 07/29/2024 12: 26 AM CDT Bacteria / Ayana Culture, Blood #2 Microbiology STAT 07/29/2024 12: 41 AM CDT Scheduled Orders Name Type Priority Associated Diagnoses Order Schedule Bacteria / Ayana Culture, Blood #1 Microbiology STAT STAT for 1 Occurrences starting 07/28/2024 until 07/28/2024 Bacteria / Ayana Culture, Blood #2 Microbiology STAT STAT for 1 Occurrences starting 07/28/2024 until 07/28/2024 Bacterial Culture, Aerobic + Susceptibility Microbiology Timed For manual relea se during upcoming procedure for 1 Occurrences starting 07/29/2024 until 07/29/2024 Bacterial Culture, Anaerobic + Susceptibility Microbiology Timed For manual relea se during upcoming procedure for 1 Occurrences starting 07/29/2024 until 07/29/2024 Gram Stain Microbiology Timed For manual r elease during upcoming procedure for 1 Occurrences starting 07/29/2024 until 07/29/2024 Fungal Culture, Routine Microbiology Timed For manual relea se during upcoming procedure for 1 Occurrences starting 07/29/2024 until 07/29/2024 Fungal Smear Microbiology Timed For manual release during upcoming procedure for 1 Occurrences starting 07/29/2024 until 07/29/2024 Continuous Pulse Oximetry Respiratory Care Routine respiratory use erey-withsgicf-uurt reminder at 8am and 8pm until discontinued starting 07/29/2024 Capnography Respiratory Care Routine respira tory use [id number]-ovtz reminder at 8am and 8pm until discontinued starting 07/29/2024 Adult Oxygen Therapy Continuous (RT) Respiratory Care Routine respiratory use [id number]-[id number]-[id number] reminder at 8am and 8pm until discontinued starting 07/29/2024 CBC with Differential, Blood Lab Routine Daily for 3 Days starting 07/30/2024 until 08/01/2024 Basic Metabolic Panel Lab Routine Nona ly for 3 Days starting 07/30/2024 until 08/01/2024 documented as of this encounter Procedures * The patient is currently admitted. The information in this section might not be complete until the patient is discharged. Procedure Name Priority Date/Time Associated Diagnosis Comments CT ABSCESS OR HEMATOMA OR CYST ASPIRATION RAD - Routine (most inpatients and all outpatients) 07/29/2024 5:[address] ABDOMEN AND/OR PELVIS DRAIN PLACEMENT RAD - Routine (most inpatients and all outpatients) 07/29/2024 5:[address] ABDOMEN PELVIS WITH IV CONTRAST RAD - Routine (most inpatients and all outpatients) 07/29/2024 4:24 PM CDT RENAL FUNCTION PANEL, S Routine 07/29/2024 8:14 AM CDT CBC WITH DIFFERENTIAL, B Routine 07/29/2024 8:14 AM CDT INTERPRETATION OF OUTSIDE CT ABDOMEN AND OR PELVIS RAD - Routine (most inpatients and all outpatients) 07/29/2024 6:06 AM CDT HEPATIC FUNCTION PANEL, S STAT 07/29/2024 12:44 AM CDT PROTHROMBIN TIME (PT), P STAT 07/29/2024 12:44 AM CDT PHOSPHORUS (INORGANIC), S STAT 07/29/2024 12:44 AM CDT MAGNESIUM, S STAT 07/29/2024 12:44 AM CDT ALBUMIN, S/P STAT 07/29/2024 12:44 AM CDT BASIC METABOLIC PANEL, S/P STAT 07/29/2024 12:44 AM CDT CBC WITH DIFFERENTIAL, B STAT 07/29/2024 12:43 AM CDT LACTATE, B/P STAT 07/29/2024 12:43 AM CDT documented in this encounter Results * CT Abscess or Hematoma or Cyst Aspiration (07/29/2024 5:28 PM CDT) Anatomical Region Laterality Modality Abdominal RST LOS, Vascular Interventional ARZ LOS, Procedural, Procedure FLA LOS, Procedural NWWI LOS N/A Computed Tomogr aphy, Computed Tomography Impressions 07/29/2024 5:53 PM CDT 1. Successful CT-guided placement of two 10 Omani locking loop drainage catheters into the large anterior abdominal abscess targeting the large midline pocket adjacent to the left hepatic lobe (80 cc purulent yellow fluid removed) and the large pocket to the left of midline adjacent to the stomach (30 cc purulent yellow fluid removed). Also CT-guided aspiration of a small portion of the collection extending into the subcutaneous tissues at the midline (air as well as 7 cc purulent yellow fluid removed). Cultures pending. 2. Recommend flushing and aspirating both catheters with 5 ml of saline twice daily. 3. Consider sinogram in interventional radiology in a few days for catheter evaluation. NR Narrative 07/29/2024 5:53 PM CDT EXAM: CT ABDOMEN AND/OR PELVIS DRAIN PLACEMENT, CT ABSCESS OR HEMATOMA OR CYST ASPIRATION PRE-PROCEDURE: Patient seen and evaluated. Allergies, pertinent medications, and history reviewed. Discussed risks, benefits, alternatives for procedure, and obtained informed consent. Patient understands information and questions answered. Immediately prior to starting the procedure, in the presence of the assisting personnel, procedural pause was conducted to verify correct patient identity and verification of procedure to be performed, and as applicable, correct side and site, correct patient position, availability of implants, special equipment, or special requirements, and all image and specimen identification data. The roles and responsibilities of care team members, residents, and fellows were discussed. TECHNIQUE: Sterile;1% lidocaine for local anesthesia and CT Guidance. TARGET LOCATION #1: Midline upper abdominal fluid collection adjacent to the left hepatic lobe on CT abdomen/pelvis 07/29/2024 series 3 image 47. INTRODUCER NEEDLE #1: 19-gauge DRAIN TYPE/SIZE #1: 10 Omani locking loop drainage catheter. VOLUME OF FLUID ASPIRATED: 80cc purulent yellow fluid removed. Sample sent for cultures. Remainder discarded. APPEARANCE OF ASPIRATE: Purulent yellow fluid. COMPLICATION: None. TARGET LOCATION #2: Anterior left abdominal fluid collection adjacent to the stomach on CT abdomen/pelvis 07/29/2024 series 3 image 63. INTRODUCER NEEDLE: 19-gauge DRAIN TYPE/SIZE #2: 10 Omani locking loop drainage catheter. VOLUME OF FLUID ASPIRATED: 30 cc purulent yellow fluid removed and discarded. APPEARANCE OF ASPIRATE: Purulent yellow fluid. COMPLICATION: None. TARGET LOCATION #3: Midline subcutaneous/subincisional air and fluid pocket visible on CT abdomen/pelvis 07/29/2024 series 3 image 63. Needle catheter system: 5 Omani needle catheter system. VOLUME OF FLUID ASPIRATED: Air as well as 7 cc purulent yellow fluid aspirated and discarded. APPEARANCE OF ASPIRATE: Purulent yellow fluid. COMPLICATION: None. BLOOD LOSS: None. PATIENT INSTRUCTIONS: Patient may be dismissed from the radiology department when dismissal criteria met. POST-PROCEDURE DIAGNOSIS: Anterior abdominal abscess. Procedure Note James Eric M.D. - 07/29/2024 EXAM: CT ABDOMEN AND/OR PELVIS DRAIN PLACEMENT, CT ABSCESS OR HEMATOMA ORCYST ASPIRATION PRE-PROCEDURE: Patient seen and evaluated. Allergies, pertinentmedications, and history reviewed. Discussed risks, benefits, alternativesfor procedure, and obtained informed consent. Patient understandsinformation and questions answered. Immediately prior to starting the procedure, in the presence of the assistingpersonnel, procedural pause was conducted to verify correct patientidentity and verification of procedure to be performed, and as applicable,correct side and site, correct patient position, availability of implants, special equipment, or specialrequirements, and all image and specimen identification data. The rolesand responsibilities of care team members, residents, and fellows werediscussed. TECHNIQUE: Sterile;1% lidocaine for local anesthesia and CT Guidance. TARGET LOCATION #1: Midline upper abdominal fluid collection adjacent tothe left hepatic lobe on CT abdomen/pelvis 07/29/2024 series 3 image 47. INTRODUCER NEEDLE #1: 19-gauge DRAIN TYPE/SIZE #1: 10 Omani locking loop drainage catheter. VOLUME OF FLUID ASPIRATED: 80cc purulent yellow fluid removed. Sample sentfor cultures. Remainder discarded. APPEARANCE OF ASPIRATE: Purulent yellow fluid. COMPLICATION: None. TARGET LOCATION #2: Anterior left abdominal fluid collection adjacent tothe stomach on CT abdomen/pelvis 07/29/2024 series 3 image 63. INTRODUCER NEEDLE: 19-gauge DRAIN TYPE/SIZE #2: 10 Omani locking loop drainage catheter. VOLUME OF FLUID ASPIRATED: 30 cc purulent yellow fluid removed anddiscarded. APPEARANCE OF ASPIRATE: Purulent yellow fluid. COMPLICATION: None. TARGET LOCATION #3: Midline subcutaneous/subincisional air and fluidpocket visible on CT abdomen/pelvis 07/29/2024 series 3 image 63. Needle catheter system: 5 Omani needle catheter system. VOLUME OF FLUID ASPIRATED: Air as well as 7 cc purulent yellow fluidaspirated and discarded. APPEARANCE OF ASPIRATE: Purulent yellow fluid. COMPLICATION: None. BLOOD LOSS: None. PATIENT INSTRUCTIONS: Patient may be dismissed from the radiologydepartment when dismissal criteria met. POST-PROCEDURE DIAGNOSIS: Anterior abdominal abscess. IMPRESSION: 1. Successful CT-guided placement of two 10 Omani locking loop drainagecatheters into the large anterior abdominal abscess targeting the largemidline pocket adjacent to the left hepatic lobe (80 cc purulent yellowfluid removed) and the large pocket to the left of midline adjacent to the stomach (30 cc purulent yellowfluid removed). Also CT-guided aspiration of a small portion of thecollection extending into the subcutaneous tissues at the midline (air aswell as 7 cc purulent yellow fluid removed). Cultures pending. 2. Recommend flushing and aspirating both catheters with 5 ml of salinetwice daily. 3. Consider sinogram in interventional radiology in a few days forcatheter evaluation. NR James Eric M.D. [facility] CT PROCEDURES Final Result * CT Abdomen and/or Pelvis Drain Placement (07/29/2024 5:28 PM CDT) Anatomical Region Laterality Modality Abdominal RST LOS, Procedura l, Vascular Interventional ARZ LOS, Procedure FLA LOS, Procedural NWWI LOS N/A Computed Tomography, Compute d Tomography Impressions 07/29/2024 5:53 PM CDT 1. Successful CT-guided placement of two 10 Omani locking loop drainage catheters into the large anterior abdominal abscess targeting the large midline pocket adjacent to the left hepatic lobe (80 cc purulent yellow fluid removed) and the large pocket to the left of midline adjacent to the stomach (30 cc purulent yellow fluid removed). Also CT-guided aspiration of a small portion of the collection extending into the subcutaneous tissues at the midline (air as well as 7 cc purulent yellow fluid removed). Cultures pending. 2. Recommend flushing and aspirating both catheters with 5 ml of saline twice daily. 3. Consider sinogram in interventional radiology in a few days for catheter evaluation. NR Narrative 07/29/2024 5:53 PM CDT EXAM: CT ABDOMEN AND/OR PELVIS DRAIN PLACEMENT, CT ABSCESS OR HEMATOMA OR CYST ASPIRATION PRE-PROCEDURE: Patient seen and evaluated. Allergies, pertinent medications, and history reviewed. Discussed risks, benefits, alternatives for procedure, and obtained informed consent. Patient understands information and questions answered. Immediately prior to starting the procedure, in the presence of the assisting personnel, procedural pause was conducted to verify correct patient identity and verification of procedure to be performed, and as applicable, correct side and site, correct patient position, availability of implants, special equipment, or special requirements, and all image and specimen identification data. The roles and responsibilities of care team members, residents, and fellows were discussed. TECHNIQUE: Sterile;1% lidocaine for local anesthesia and CT Guidance. TARGET LOCATION #1: Midline upper abdominal fluid collection adjacent to the left hepatic lobe on CT abdomen/pelvis 07/29/2024 series 3 image 47. INTRODUCER NEEDLE #1: 19-gauge DRAIN TYPE/SIZE #1: 10 Omani locking loop drainage catheter. VOLUME OF FLUID ASPIRATED: 80cc purulent yellow fluid removed. Sample sent for cultures. Remainder discarded. APPEARANCE OF ASPIRATE: Purulent yellow fluid. COMPLICATION: None. TARGET LOCATION #2: Anterior left abdominal fluid collection adjacent to the stomach on CT abdomen/pelvis 07/29/2024 series 3 image 63. INTRODUCER NEEDLE: 19-gauge DRAIN TYPE/SIZE #2: 10 Omani locking loop drainage catheter. VOLUME OF FLUID ASPIRATED: 30 cc purulent yellow fluid removed and discarded. APPEARANCE OF ASPIRATE: Purulent yellow fluid. COMPLICATION: None. TARGET LOCATION #3: Midline subcutaneous/subincisional air and fluid pocket visible on CT abdomen/pelvis 07/29/2024 series 3 image 63. Needle catheter system: 5 Omani needle catheter system. VOLUME OF FLUID ASPIRATED: Air as well as 7 cc purulent yellow fluid aspirated and discarded. APPEARANCE OF ASPIRATE: Purulent yellow fluid. COMPLICATION: None. BLOOD LOSS: None. PATIENT INSTRUCTIONS: Patient may be dismissed from the radiology department when dismissal criteria met. POST-PROCEDURE DIAGNOSIS: Anterior abdominal abscess. Procedure Note James Eric M.D. - 07/29/2024 EXAM: CT ABDOMEN AND/OR PELVIS DRAIN PLACEMENT, CT ABSCESS OR HEMATOMA ORCYST ASPIRATION PRE-PROCEDURE: Patient seen and evaluated. Allergies, pertinentmedications, and history reviewed. Discussed risks, benefits, alternativesfor procedure, and obtained informed consent. Patient understandsinformation and questions answered. Immediately prior to starting the procedure, in the presence of the assistingpersonnel, procedural pause was conducted to verify correct patientidentity and verification of procedure to be performed, and as applicable,correct side and site, correct patient position, availability of implants, special equipment, or specialrequirements, and all image and specimen identification data. The rolesand responsibilities of care team members, residents, and fellows werediscussed. TECHNIQUE: Sterile;1% lidocaine for local anesthesia and CT Guidance. TARGET LOCATION #1: Midline upper abdominal fluid collection adjacent tothe left hepatic lobe on CT abdomen/pelvis 07/29/2024 series 3 image 47. INTRODUCER NEEDLE #1: 19-gauge DRAIN TYPE/SIZE #1: 10 Omani locking loop drainage catheter. VOLUME OF FLUID ASPIRATED: 80cc purulent yellow fluid removed. Sample sentfor cultures. Remainder discarded. APPEARANCE OF ASPIRATE: Purulent yellow fluid. COMPLICATION: None. TARGET LOCATION #2: Anterior left abdominal fluid collection adjacent tothe stomach on CT abdomen/pelvis 07/29/2024 series 3 image 63. INTRODUCER NEEDLE: 19-gauge DRAIN TYPE/SIZE #2: 10 Omani locking loop drainage catheter. VOLUME OF FLUID ASPIRATED: 30 cc purulent yellow fluid removed anddiscarded. APPEARANCE OF ASPIRATE: Purulent yellow fluid. COMPLICATION: None. TARGET LOCATION #3: Midline subcutaneous/subincisional air and fluidpocket visible on CT abdomen/pelvis 07/29/2024 series 3 image 63. Needle catheter system: 5 Omani needle catheter system. VOLUME OF FLUID ASPIRATED: Air as well as 7 cc purulent yellow fluidaspirated and discarded. APPEARANCE OF ASPIRATE: Purulent yellow fluid. COMPLICATION: None. BLOOD LOSS: None. PATIENT INSTRUCTIONS: Patient may be dismissed from the radiologydepartment when dismissal criteria met. POST-PROCEDURE DIAGNOSIS: Anterior abdominal abscess. IMPRESSION: 1. Successful CT-guided placement of two 10 O[place]i locking loop drainagecatheters into the large anterior abdominal abscess targeting the largemidline pocket adjacent to the left hepatic lobe (80 cc purulent yellowfluid removed) and the large pocket to the left of midline adjacent to the stomach (30 cc purulent yellowfluid removed). Also CT-guided aspiration of a small portion of thecollection extending into the subcutaneous tissues at the midline (air aswell as 7 cc purulent yellow fluid removed). Cultures pending. 2. Recommend flushing and aspirating both catheters with 5 ml of salinetwice daily. 3. Consider sinogram in interventional radiology in a few days forcatheter evaluation. NR Tate Meng M.D. IMLary CT PROCEDURES Final Res ult * CT Abdomen Pelvis with IV Contrast (07/29/2024 4:24 PM CDT) Anatomical Region Laterality Modality Abdomen, Pelvis, Abdominal R ST LOS, Abdominal ARZ LOS, Abdominal FLA LOS N/A Computed Tomograp hy, Computed Tomography 07/29/2024 4:17 PM CDT Impressions 07/29/2024 5:28 PM CDT Similar to slight increase in size of the fluid and gas collection in the upper abdomen. Given no extravasated oral contrast, findings are favored represent infection, however a postoperative gastric leak or recurrent gastric ulcer perforation is not entirely excluded. Narrative 07/29/2024 5:28 PM CDT EXAM: CT ABDOMEN PELVIS WITH IV CONTRAST COMPARISON: Outside CT abdomen pelvis 07/28/2024. FINDINGS: Reported history of perforated gastric ulcer status post repair on 07/03/2024 Redemonstration of the multiple collections in the upper abdomen. For example: - A collection anterior to the stomach is predominantly fluid-filled and measures 4.5 cm in AP dimension, previously 3.7 cm (series 3 image 62). - A fluid and gas collection anterior to the left hepatic lobe with the dominant component measuring 6.2 cm transversely, previously 5.2 cm (series 3 image 49). - In additionally, there is likely a thin fluid and gas collection along the posterior margin of the left hepatic lobe, not substantially changed (series 3 image 49). No discrete new fluid collection identified. None of the fluid collections contain oral contrast. No suspicious hepatic mass. Contracted appearance of the gallbladder with cholelithiasis. Unremarkable appearance of the spleen, pancreas, adrenal glands, kidneys, and bladder. Oral contrast is present from the level of the stomach to the mid/distal small bowel without extravasation. Unobstructed bowel. Dependent atelectasis in lung bases. Procedure Note Elian Phillips M.D. - 07/29/2024 EXAM: CT ABDOMEN PELVIS WITH IV CONTRAST COMPARISON: Outside CT abdomen pelvis 07/28/2024. FINDINGS: Reported history of perforated gastric ulcer status post repair on07/03/2024 Redemonstration of the multiple collections in the upper abdomen. Forexample: - A collection anterior to the stomach is predominantly fluid-filled andmeasures 4.5 cm in AP dimension, previously 3.7 cm (series 3 image 62). - A fluid and gas collection anterior to the left hepatic lobe with thedominant component measuring 6.2 cm transversely, previously 5.2 cm(series 3 image 49). - In additionally, there is likely a thin fluid and gas collection alongthe posterior margin of the left hepatic lobe, not substantially changed(series 3 image 49). No discrete new fluid collection identified. None of the fluid collectionscontain oral contrast. No suspicious hepatic mass. Contracted appearance of the gallbladder withcholelithiasis. Unremarkable appearance of the spleen, pancreas, adrenalglands, kidneys, and bladder. Oral contrast is present from the level ofthe stomach to the mid/distal small bowel without extravasation. Unobstructed bowel. Dependentatelectasis in lung bases. IMPRESSION: Similar to slight increase in size of the fluid and gas collection in theupper abdomen. Given no extravasated oral contrast, findings are favoredrepresent infection, however a postoperative gastric leak or recurrentgastric ulcer perforation is not entirely excluded. Tate Meng M.D. IMG CT PROCEDURES Final Res ult * (ABNORMAL) Renal Function Panel (07/29/2024 8:14 AM CDT) Potassium, S 3.6 3.6 - 5.2 mmol/L 07/29/2024 9:27 AM CDT DTL Sodium, S 137 135 - 145 mmol/L 07/29/2024 9:27 AM CDT DTL Chloride, S 97(L) 98 - 107 mmol/L 07/29/2024 9:27 AM CDT DTL Bicarbonate, S 23 22 - 29 mmol/L 07/29/2024 9:27 AM CDT DTL Anion Gap 17(H) 7 - 15 07/29/2024 9:27 AM CDT DTL BUN (Blood Urea Nitrogen), S 13 6 - 21 mg/dL 07/29/2024 9:27 AM CDT DTL Creatinine 0.83 0.59 - 1.04 mg/dL 07/29/2024 9:27 AM CDT DTL Estimated GFR (eGFR) 85 >=60 mL/min/BSA 07/29/2024 9:27 AM CDT DTL Comment: Estimated GFR calculated using the 2020 CKD_EPI creatinine equation. Calcium, Total, S 8.6 8.6 - 10.0 mg/dL 07/29/2024 9:27 AM CDT DTL Glucose, S 104 70 - 140 mg/dL 07/29/2024 9:27 AM CDT DTL Albumin, S 3.4(L) 3.5 - 5.0 g/dL 07/29/2024 9:27 AM CDT DTL Phosphorus (Inorganic), S 2.6 2.5 - 4.5 mg/dL 07/29/2024 9:27 AM CDT DTL Blood (Blood, Venous) 07/29/2024 8:14 AM CDT 07/29/2024 8:37 AM CDT us Sylvester Womack M.D., M.S. LAB BLOOD ADD-ON Final Result [facility] [address] [place] [address], [place] DTL [facility] [address] [place] [address] * (ABNORMAL) CBC with Differential, Blood (07/29/2024 8:14 AM CDT) Hemoglobin 11.4(L) 11.6 - 15.0 g/dL 07/29/2024 8:51 AM CDT DHPM Hematocrit 33.9(L) 35.5 - 44.9 % 07/29/2024 8:51 AM CDT DHPM Erythrocytes 3.73(L) 3.92 - 5.13 x10(12)/L 07/29/2024 8:51 AM CDT DHPM MCV 90.9 78.2 - 97.9 fL 07/29/2024 8:51 AM CDT DHPM RBC Distrib Width 12.8 12.2 - 16.1 % 07/29/2024 8:51 AM CDT DHPM Platelet Count 278 157 - 371 x10(9)/L 07/29/2024 8:51 AM CDT DHPM Leukocytes 10.1(H) 3.4 - 9.6 x10(9)/L 07/29/2024 8:51 AM CDT DHPM Neutrophils 7.30(H) 1.56 - 6.45 x10(9)/L 07/29/2024 8:51 AM CDT DHPM Lymphocytes 1.52 0.95 - 3.07 x10(9)/L 07/29/2024 8:51 AM CDT DHPM Monocytes 1.26(H) 0.26 - 0.81 x10(9)/L 07/29/2024 8:51 AM CDT DHPM Eosinophils 0.03 0.03 - 0.48 x10(9)/L 07/29/2024 8:51 AM CDT DHPM Basophils 0.03 0.01 - 0.08 x10(9)/L 07/29/2024 8:51 AM CDT DHPM Blood (Blood, Venous) 07/29/2024 8:14 AM CDT 07/29/2024 8:37 AM CDT us Sylvester Womack M.D., M.S. LAB BLOOD ADD-ON Final Result [facility] [address] [place] [address], [facility] [address] [place] [address] * Interpretation of Outside CT Abdomen and or Pelvis (07/29/2024 6:06 AM CDT) Anatomical Region Laterality Modality Abdomen, Pelvis, Abdominal R ST LOS, Abdominal ARZ LOS, Abdominal FLA LOS, Other N/A Computed Tomography Impressions 07/29/2024 11:04 AM CDT New multifocal fluid and gas collections along the anterior wall of the body of the stomach and along the anterior inferior left lobe of the liver are likely due to recurrent gastric ulcer perforation, postoperative gastric leak, and/or superimposed infection. If clinically indicated, CT-guided aspiration/drain placement could be performed for further evaluation. Narrative 07/29/2024 11:04 AM CDT EXAM: INTERPRETATION OF OUTSIDE CT ABDOMEN AND OR PELVIS with IV contrast 07/28/2024. COMPARISON: Outside CT 07/03/2024. FINDINGS: Interval PO changes along the midline anterior abdominal wall. Inflammatory wall thickening of the mid/distal stomach is not significantly changed. New multifocal fluid collections with gas anterior to the body of the stomach and along the anterior inferior margin of the liver are likely related to recurrent perforated gastric ulcer, postoperative gastric leak, and/or superimposed infection. The largest discrete fluid and gas collection along the anterior wall of the body of the stomach measures 4.0 cm (series 2, image 55), and the largest discrete fluid and gas collection along the anterior inferior margin of the liver measures 5.5 cm (series 2, image 44). Previously seen small amount of pelvic ascites has resolved. Peripherally calcified stone in the contracted gallbladder. Hysterectomy. Aortoiliac calcifications. Procedure Note Quincy Rothman M.D. - 07/29/2024 EXAM: INTERPRETATION OF OUTSIDE CT ABDOMEN AND OR PELVIS with IV contrast07/28/2024. COMPARISON: Outside CT 07/03/2024. FINDINGS: Interval PO changes along the midline anterior abdominal wall.Inflammatory wall thickening of the mid/distal stomach is notsignificantly changed. New multifocal fluid collections with gas anteriorto the body of the stomach and along the anterior inferior margin of the liver are likely related to recurrentperforated gastric ulcer, postoperative gastric leak, and/or superimposedinfection. The largest discrete fluid and gas collection along theanterior wall of the body of the stomach measures 4.0 cm (series 2, image 55), and the largest discrete fluid andgas collection along the anterior inferior margin of the liver measures5.5 cm (series 2, image 44). Previously seen small amount of pelvicascites has resolved. Peripherally calcified stone in the contracted gallbladder. Hysterectomy. Aortoiliaccalcifications. IMPRESSION: New multifocal fluid and gas collections along the anterior wall of thebody of the stomach and along the anterior inferior left lobe of the liverare likely due to recurrent gastric ulcer perforation, postoperativegastric leak, and/or superimposed infection. If clinically indicated, CT-guided aspiration/drain placementcould be performed for further evaluation. Rosa Valle M.D. IMG CT PROCEDURES Final Result * (ABNORMAL) Prothrombin Time (PT) (07/29/2024 12:44 AM CDT) Prothrombin Time, P 13.9(H) 9.4 - 12.5 sec 07/29/2024 1:02 AM CDT [facility] INR 1.3 0.9 - 1.1 07/29/2024 1:02 AM CDT [facility] Comment: ----ADDITIONAL INFORMATION---- Standard intensity warfarin therapeutic range: 2.0 to 3.0 High intensity warfarin therapeutic range: 2.5 to 3.5 Blood (Blood, Venous) 07/29/2024 12:44 AM CDT 07/29/2024 12:53 AM CDT Sylvester Womack M.D., M.S. LAB BLOOD ADD-ON Final Result [facility] [address] [place] [address], [facility] [address] [place] [address] * Albumin (07/29/2024 12:44 AM CDT) Albumin, S 3.7 3.5 - 5.0 g/dL 07/29/2024 1:32 AM CDT DTL Blood (Blood, Venous) 07/29/2024 12:44 AM CDT 07/29/2024 1:18 AM CDT us Sylvester Womack M.D., M.S. LAB BLOOD ADD-ON Final Result Performing Organization Address [facility] Co de Phone Number [facility] [address] [place] [address] * Phosphorus Inorganic (07/29/2024 12:44 AM CDT) Pathologist [facility] Phosphorus (Inorganic), P 3.7 2.5 - 4.5 mg/dL 07/29/2024 1:31 AM CDT DTL Blood (Blood, Venous) 07/29/2024 12:44 AM CDT 07/29/2024 1:01 AM CDT us Sylvester Womack M.D., M.S. LAB BLOOD ADD-ON Final Result Performing Organization Address [facility] Co de Phone Number [facility] [address] [place] [address] * Magnesium (07/29/2024 12:44 AM CDT) Magnesium, P 1.9 1.7 - 2.3 mg/dL 07/29/2024 1:31 AM CDT DTL Blood (Blood, Venous) 07/29/2024 12:44 AM CDT 07/29/2024 1:01 AM CDT us Sylvester Womack M.D., M.S. LAB BLOOD ADD-ON Final Result [facility] [address] [place] [address], [facility] [place] [place] [address] [place] [address] * (ABNORMAL) Hepatic Function Panel (07/29/2024 12:44 AM CDT) Bilirubin, Total, S 1.2 0.0 - 1.2 mg/dL 07/29/2024 1:34 AM CDT DTL Bilirubin, Direct, S 0.8(H) 0.0 - 0.3 mg/dL 07/29/2024 1:34 AM CDT DTL Aspartate Aminotransferase (AST), S 68(H) 8 - 43 U/L 07/29/2024 1:34 AM CDT DTL Alanine Aminotransferase (ALT), S 33 7 - 45 U/L 07/29/2024 1:34 AM CDT DTL Alkaline Phosphatase, S 439(H) 35 - 104 U/L 07/29/2024 1:34 AM CDT DTL Albumin, S 3.8 3.5 - 5.0 g/dL 07/29/2024 1:34 AM CDT DTL Protein, Total, S 6.9 6.3 - 7.9 g/dL 07/29/2024 1:34 AM CDT DTL Blood (Blood, Venous) 07/29/2024 12:44 AM CDT 07/29/2024 1:19 AM CDT Sylvester Womack M.D., M.S. LAB BLOOD ADD-ON Final Result [facility] [address] [place] [address], [facility] [place] [address] [place] [address] * (ABNORMAL) Basic Metabolic Panel (07/29/2024 12:44 AM CDT) Potassium, P 3.3(L) 3.6 - 5.2 mmol/L 07/29/2024 1:38 AM CDT DTL Sodium, P 135 135 - 145 mmol/L 07/29/2024 1:38 AM CDT DTL Chloride, P 95(L) 98 - 107 mmol/L 07/29/2024 1:38 AM CDT DTL Bicarbonate, P 25 22 - 29 mmol/L 07/29/2024 1:38 AM CDT DTL Anion Gap, P 15 7 - 15 07/29/2024 1:38 AM CDT DTL BUN (Blood Urea Nitrogen), P 16 6 - 21 mg/dL 07/29/2024 1:38 AM CDT DTL Creatinine 0.90 0.59 - 1.04 mg/dL 07/29/2024 1:38 AM CDT DTL Estimated GFR (eGFR) 77 >=60 mL/min/BSA 07/29/2024 1:38 AM CDT DTL Comment: Estimated GFR calculated using the 2020 CKD_EPI creatinine equation. Calcium, Total, P 9.3 8.6 - 10.0 mg/dL 07/29/2024 1:38 AM CDT DTL Glucose, P 112 70 - 140 mg/dL 07/29/2024 1:38 AM CDT DTL Blood (Blood, Venous) 07/29/2024 12:44 AM CDT 07/29/2024 1:01 AM CDT us Sylvester Womack M.D., M.S. LAB BLOOD ADD-ON Final Result [facility] [address] [place] [address], [facility] [place] [place] [address] [place] [address] * Lactate (07/29/2024 12:43 AM CDT) Lactate, P 0.8 0.5 - 2.2 mmol/L 07/29/2024 1:37 AM CDT DTL Blood (Blood, Venous) 07/29/2024 12:43 AM CDT 07/29/2024 1:01 AM CDT us Sylvester Womack M.D., M.S. LAB BLOOD NON ADD-ON F inal Result [facility] [address] [place] [address], [facility] DTL [facility] [address] [place] [address] * (ABNORMAL) CBC with Differential, Blood (07/29/2024 12:43 AM CDT) Hemoglobin 11.4(L) 11.6 - 15.0 g/dL 07/29/2024 12:56 AM CDT ST[facility] Hematocrit 33.3(L) 35.5 - 44.9 % 07/29/2024 12:56 AM CDT [facility] Erythrocytes 3.74(L) 3.92 - 5.13 x10(12)/L 07/29/2024 12:56 AM CDT STMA MCV 89.0 78.2 - 97.9 fL 07/29/2024 12:56 AM CDT STMA RBC Distrib Width 12.8 12.2 - 16.1 % 07/29/2024 12:56 AM CDT ST[facility] Platelet Count 285 157 - 371 x10(9)/L 07/29/2024 12:56 AM CDT [facility] Leukocytes 11.3(H) 3.4 - 9.6 x10(9)/L 07/29/2024 12:56 AM CDT ST[facility] Neutrophils 7.67(H) 1.56 - 6.45 x10(9)/L 07/29/2024 12:56 AM CDT DHPM Lymphocytes 2.22 0.95 - 3.07 x10(9)/L 07/29/2024 12:56 AM CDT STMA Monocytes 1.36(H) 0.26 - 0.81 x10(9)/L 07/29/2024 12:56 AM CDT ST[facility] Eosinophils 0.04 0.03 - 0.48 x10(9)/L 07/29/2024 12:56 AM CDT STMA Basophils 0.04 0.01 - 0.08 x10(9)/L 07/29/2024 12:56 AM CDT STMA Blood (Blood, Venous) 07/29/2024 12:43 AM CDT 07/29/2024 12:53 AM CDT us Sylvester Womack M.D., M.S. LAB BLOOD ADD-ON Final Result [facility] [address] [place] [address], [place] STMA [facility] [address] [place] [address] [facility] [address] [place] [address] documented in this encounter Visit Diagnoses Diagnosis Pain Epigastric- Primary Nicotine Dependence Cigarettes With Withdrawal Chronic Or Unspecified Gastric Ulcer With Perforation (HCC) Abscess Intra Abdominal (HCC) Nausea And Vomiting Celiac Disease documented in this encounter Admitting Diagnoses Diagnosis Ulcer Gastric Acute With Perforation (HCC) documented in this encounter Administered Medications Active Administered Medications - up to 3 most recent administrations Medication Order MAR Action Action Date Dose Rate Site acetaminophen tablet 650 mg (TylenoL) 650 mg, oral, Every 4 hours PRN, mild pain or score 1-3 of 10, moderate pain or score 4-6 of 10, severe pain or score 7-10 of 10, Starting on Nora 07/29/24 at 0115 Given 07/29/2024 2:57 PM CDT 650 mg Given 07/29/2024 1:21 AM CDT 650 mg cefTRIAXone in dextrose (iso osm) IVPB 2 g (Rocephin) 2 g, intravenous, at 200 mL/hr, Administer over 15 Minutes, Every 24 hours, First dose on Nora 07/29/24 at 0030, Drug Monitoring Program: Pharmacist to adjust medication dosing based on indication and drug clearance factors., Indications: Intra-abdominal infection, community acquiredIndications:Intra-abdomina l infection, community acquired New Bag 07/29/2024 1:09 AM CDT 2 g 200 mL/hr D5W and NaCl 0.45 % infusion 75 mL/hr, intravenous, Continuous, Starting on Nora 07/29/24 at 0900 New Bag 07/29/2024 9:33 AM CDT 75 mL/hr 75 mL/hr D5W infusion 1-999 mL/hr, intravenous, As needed, Medications Incompatible with 0.9% NaCL, Starting on Fri07/28/24 at 2318, Infuse at the same rate as the piggyback until tubing clears or up to a volume of 20 mL pre and post infusion for medications incompatible with 0.9% NaCL. Use 50 mL bag then discard. fentaNYL injection 25 mcg (Sublimaze) 25 mcg, intravenous, Once as needed, sedation, Starting on Nora 07/29/24 at 1632, For 1 dose, Intraprocedure (RAD), IV Push fentaNYL injection 25 mcg (Sublimaze) 25 mcg, intravenous, Every 2 min PRN, sedation, Administer over 1 minute immediately prior to the procedure. May repeat every 2 minutes to a maximum of 200 mcg, until pain score of 3 or less, or until the patient meets the pain comfort goal, or RASS 0 to -2. Do not give if respiratory rate is less than 8 breaths/minute., Starting on Nora 07/29/24 at 1632, Intraprocedure (RAD), Subsequent doses Given 07/29/2024 5:32 PM CDT 25 mcg Given 07/29/2024 5:10 PM CDT 25 mcg Given 07/29/2024 5:03 PM CDT 25 mcg flumazeniL injection 0.2 mg (Romazicon) 0.2 mg, intravenous, Once as needed, reversal, Starting on Nora 07/29/24 at 1632, For 1 dose, Intraprocedure (RAD), Administer once if patient has a RASS score of -4, -5 and has a respiratory rate less than 8 breaths/minute. HYDROmorphone (PF) injection 0.2 mg (Dilaudid) 0.2 mg, intravenous, Every 1 hour PRN, severe pain or score 7-10 of 10, moderate pain or score 4-6 of 10, Starting on Fri07/28/24 at 2358 Given 07/29/2024 9:33 AM CDT 0.2 mg metroNIDAZOLE in NaCl (iso osm) IVPB 500 mg (FlagyL) 500 mg, intravenous, at 200 mL/hr, Administer over 30 Minutes, Every 8 hours, First dose on Nora 07/29/24 at 0030, Drug Monitoring Program: Pharmacist to adjust medication dosing based on indication and drug clearance factors., Indications: Intra-abdominal infection, community acquiredIndications:Intra-abdominal infection, community acquired New Bag 07/29/2024 5:55 PM CDT 500 mg 2 00 mL/hr New Bag 07/29/2024 8:01 AM CDT 500 mg 200 mL/hr New Bag 07/29/2024 12:51 AM CDT 500 mg 200 mL/hr NaCl 0.9% infusion 1-999 mL/hr, intravenous, As needed, Between Consecutive Piggyback Medications, Starting on Fri07/28/24 at 2318, For 7 days, Infuse at the same rate as the piggyback until tubing clears or up to a volume of 20 mL. Select for IV medication administration when no maintenance IV available or when IV medications are not compatible with maintenance fluid. NaCl 0.9% infusion 1-999 mL/hr, intravenous, As needed, Post Medications (Hazardous/Low Fluid Volume), Starting on Fri07/28/24 at 2318, For 7 days, Infuse at the same rate as the medication until tubing cleared of medication, then discard. naloxone injection 0.1 mg (Narcan) 0.1 mg, intravenous, Every 5 min PRN, reversal, respiratory depression, For RASS Score -4 or less, respiratory rate of less than 8 breaths/min. Notify provider/service and rapid response team (if available at institution)., Starting on Fri07/28/24 at 2358, For 3 doses naloxone injection 0.2 mg (Narcan) 0.2 mg, intravenous, Once as needed, respiratory depression, Starting on Fri07/29/24 at 1632, For 1 dose, Intraprocedure (RAD), Administer once if patient has a RASS score of -4, -5 and has a respiratory rate less than 8 breaths/minute. nicotine 14 mg/24 hr 1 patch (Nicoderm CQ) 1 patch, transdermal, Administer over 24 Hours, Daily, First dose on Fri07/29/24 at 0900 Medication Applied 07/29/2024 8:01 AM CDT 1 patch Right Shoulder ondansetron (PF) injection 4 mg (Zofran) 4 mg, intravenous, Every 6 hours PRN, nausea, vomiting, Starting on Fri07/29/24 at 0913 Given 07/29/2024 9:33 AM CDT 4 mg pantoprazole injection 40 mg (Protonix) 40 mg, intravenous, Every 24 hours scheduled, First dose on Fri07/29/24 at 0000, Administer IV push over 2 minutes. Add 10 mL NS to 40 mg vial for a final concentration of 4 mg/mL. Given 07/28/2024 11:57 PM CDT 40 mg sodium chloride 0.9 % injection 10 mL 10 mL, intravenous, As needed, line care, Peripheral Intravenous Catheter and Rapid Infusion Catheter, Starting on Fri07/28/24 at 2318, Prior to blood sampling, post blood transfusion or post blood sampling. sodium chloride 0.9 % injection 3 mL 3 mL, intravenous, As needed, line care, Peripheral Intravenous Catheter and Rapid Infusion Catheter, Starting on Fri07/28/24 at 2318, Prior to and following infusion and between multiple consecutive infusions. sodium chloride 0.9 % injection 3 mL 3 mL, intravenous, Every 24 hours scheduled, First dose on Nora 07/29/24 at 0900, Peripheral Intravenous Catheter and Rapid Infusion Catheter: When no infusion to maintain patency. Given 07/29/2024 8:01 AM CDT 3 mL Inactive Administered Medications - up to 3 most recent administrations Medication Order MAR Action Action Date Dose Rate Site iohexoL (Omnipaque) dilution solution 9 mg iodine/mL 495-9,000 mg, oral, Once in imaging, contrast, Starting on Nora 07/29/24 at 1159, For 1 dose, Imaging Protocol Orders, Dose per Radiant Medication Guidelines Dosing Instructions/Compounding Instructions: Adults = 9,000 mg = 30 mL of 300 mg iodine/mL in 1,000 mL water; Peds > 18 kg = 4,500 mg = 15 mL of 300 mg iodine/mL in 500 mL apple juice or water; Peds 12-18 kg = 1,980-2,880 mg = 15 mL of 300 mg iodine/mL in 500 mL apple juice or water; Peds 8-12 kg = 1,350-1,935 mg = 7.5 mL of 300 mg iodine/mL in 250 mL apple juice or water; Peds 1-8 kg = 495-720 mg = 7.5 mL of 300 mg iodine/mL in 250 mL apple juice or water. Multiply the number of mLs consumed by 9 to calculate the total mg for documentation. Given 07/29/2024 2:53 PM CDT 9,000 mg iohexoL 300 mg iodine/mL solution 1-200 mL (Omnipaque) 1-200 mL, intravenous, Once in imaging, contrast, Starting on Nora 07/29/24 at 1159, For 1 dose, Imaging Protocol Orders, Dose per Radiant Medication Guidelines Given 07/29/2024 4:10 PM CDT 140 mL NaCl 0.9 % bolus 1,000 mL 1,000 mL, intravenous, at 1,000 mL/hr, Administer over 1 Hours, Once, On Nora 07/29/24 at 0015, For 1 dose New Bag 07/29/2024 12:25 AM CDT 1,000 mL 1000 mL/hr ondansetron (PF) injection (Zofran) As needed, Starting on Nora 07/29/24 at 1638, Intra-Op Given 07/29/2024 5:11 PM CDT 2 mg Given 07/29/2024 4:38 PM CDT 2 mg sodium chloride (PF) 0.9 % injection 1-100 mL 1-100 mL, intravenous, Once, On Nora 07/29/24 at 1215, For 1 dose, Imaging Protocol Orders, Dose per Radiant Medication Guidelines Given 07/29/2024 4:10 PM CDT 35 mL documented in this encounter Active and Recently Administered Medications Times are shown in CDT. Scheduled Medication Order 07/27/2024 07/28/2024 07/29/2024 cefTRIAXone in dextrose (iso osm) IVPB 2 g (Rocephin) 2 g, intravenous, at 200 mL/hr, Administer over 15 Minutes, Every 24 hours, First dose on Nora 07/29/24 at 0030, Drug Monitoring Program: Pharmacist to adjust medication dosing based on indication and drug clearance factors., Indications: Intra-abdominal infection, community acquired 0109 (New Bag - Provider: Toshia Ladd R.N.) metroNIDAZOLE in NaCl (iso osm) IVPB 500 mg (FlagyL) 500 mg, intravenous, at 200 mL/hr, Administer over 30 Minutes, Every 8 hours, First dose on Nora 07/29/24 at 0030, Drug Monitoring Program: Pharmacist to adjust medication dosing based on indication and drug clearance factors., Indications: Intra-abdominal infection, community acquired 0051 (New Bag - Provider: Toshia Ladd R.N.)0801 (New Bag - Provider: Taylor Bentley R.N.)1755 (New Bag - Provider: Taylor Bentley R.N. - Comment: Patient was in procedure) NaCl 0.9 % bolus 1,000 mL (COMPLETED) 1,000 mL, intravenous, at 1,000 mL/hr, Administer over 1 Hours, Once, On Nora 07/29/24 at 0015, For 1 dose 0025 (New Bag - Provider: Toshia Ladd R.N.) nicotine 14 mg/24 hr 1 patch (Nicoderm CQ) 1 patch, transdermal, Administer over 24 Hours, Daily, First dose on Noar 07/29/24 at 0900 0801 (Medication Applied - Provider: Taylor Bentley R.N. - Comment: Product saying barcode unreadable. Placed 14mg patch on R shoulder) ondansetron (PF) injection 4 mg (Zofran) 4 mg, intravenous, Once, On Nora 07/29/24 at 1645, For 1 dose, Intraprocedure (RAD) 1645 (Due) pantoprazole injection 40 mg (Protonix) 40 mg, intravenous, Every 24 hours scheduled, First dose on Nora 07/29/24 at 0000, Administer IV push over 2 minutes. Add 10 mL NS to 40 mg vial for a final concentration of 4 mg/mL. 2357 (Given - Provider: Toshia Ladd R.N.) sodium chloride (PF) 0.9 % injection 1-100 mL (COMPLETED) 1-100 mL, intravenous, Once, On Nora 07/29/24 at 1215, For 1 dose, Imaging Protocol Orders, Dose per [facility] Medication Guidelines 1610 (Given - Provid er: Alexandra Mendoza R.N.) sodium chloride 0.9 % injection 3 mL 3 mL, intravenous, Every 24 hours scheduled, First dose on Nora 07/29/24 at 0900, Peripheral Intravenous Catheter and Rapid Infusion Catheter: When no infusion to maintain patency. 0801 (Given - Provid er: Taylor Bentley R.N.) Continuous Medication Order 07/27/2024 07/28/2024 07/29/2024 D5W and NaCl 0.45 % infusion 75 mL/hr, intravenous, Continuous, Starting on Nora 07/29/24 at 0900 0933 (New Bag - Prov ider: Taylor Bentley R.N.) PRN Medication Order 07/27/2024 07/28/2024 07/29/2024 acetaminophen tablet 650 mg (TylenoL) 650 mg, oral, Every 4 hours PRN, mild pain or score 1-3 of 10, moderate pain or score 4-6 of 10, severe pain or score 7-10 of 10, Starting on Nora 07/29/24 at 0115 0121 (Given - Provid er: Toshia Ladd R.N.)1457 (Given - Provider: Taylor Bentley R.N.) D5W infusion 1-999 mL/hr, intravenous, As needed, Medications Incompatible with 0.9% NaCL, Starting on Fri07/28/24 at 2318, Infuse at the same rate as the piggyback until tubing clears or up to a volume of 20 mL pre and post infusion for medications incompatible with 0.9% NaCL. Use 50 mL bag then discard. fentaNYL injection 25 mcg (Sublimaze) 25 mcg, intravenous, Once as needed, sedation, Starting on Nora 07/29/24 at 1632, For 1 dose, Intraprocedure (RAD), IV Push fentaNYL injection 25 mcg (Sublimaze) 25 mcg, intravenous, Every 2 min PRN, sedation, Administer over 1 minute immediately prior to the procedure. May repeat every 2 minutes to a maximum of 200 mcg, until pain score of 3 or less, or until the patient meets the pain comfort goal, or RASS 0 to -2. Do not give if respiratory rate is less than 8 breaths/minute., Starting on Nora 07/29/24 at 1632, Intraprocedure (RAD), Subsequent doses 1639 (Given - Provid er: Alexandra Mendoza R.N.)1658 (Given - Provider: Alexandra Mendoza R.N.)1703 (Given - Provider: Alexandra Mendoza R.N.)1710 (Given - Provider: Alexandra Mendoza R.N.)1732 (Given - Provider: Alexandra Mendoza R.N.) flumazeniL injection 0.2 mg (Romazicon) 0.2 mg, intravenous, Once as needed, reversal, Starting on Nora 07/29/24 at 1632, For 1 dose, Intraprocedure (RAD), Administer once if patient has a RASS score of -4, -5 and has a respiratory rate less than 8 breaths/minute. HYDROmorphone (PF) injection 0.2 mg (Dilaudid) 0.2 mg, intravenous, Every 1 hour PRN, severe pain or score 7-10 of 10, moderate pain or score 4-6 of 10, Starting on Fri07/28/24 at 2358 0933 (Given - Provid er: Taylor Bentley, R.N.) iohexoL (Omnipaque) dilution solution 9 mg iodine/mL (COMPLETED) 495-9,000 mg, oral, Once in imaging, contrast, Starting on Nora 07/29/24 at 1159, For 1 dose, Imaging Protocol Orders, Dose per [facility] Medication Guidelines Dosing Instructions/Compounding Instructions: Adults = 9,000 mg = 30 mL of 300 mg iodine/mL in 1,000 mL water; Peds > 18 kg = 4,500 mg = 15 mL of 300 mg iodine/mL in 500 mL apple juice or water; Peds 12-18 kg = 1,980-2,880 mg = 15 mL of 300 mg iodine/mL in 500 mL apple juice or water; Peds 8-12 kg = 1,350-1,935 mg = 7.5 mL of 300 mg iodine/mL in 250 mL apple juice or water; Peds 1-8 kg = 495-720 mg = 7.5 mL of 300 mg iodine/mL in 250 mL apple juice or water. Multiply the number of mLs consumed by 9 to calculate the total mg for documentation. 1453 (Given - Provid er: Taylor Bentley, R.N.) iohexoL 300 mg iodine/mL solution 1-200 mL (Omnipaque) (COMPLETED) 1-200 mL, intravenous, Once in imaging, contrast, Starting on Nora 07/29/24 at 1159, For 1 dose, Imaging Protocol Orders, Dose per [facility] Medication Guidelines 1610 (Given - Provid er: Alexandra Menodza, R.N.) NaCl 0.9% infusion 1-999 mL/hr, intravenous, As needed, Between Consecutive Piggyback Medications, Starting on Fri07/28/24 at 2318, For 7 days, Infuse at the same rate as the piggyback until tubing clears or up to a volume of 20 mL. Select for IV medication administration when no maintenance IV available or when IV medications are not compatible with maintenance fluid. NaCl 0.9% infusion 1-999 mL/hr, intravenous, As needed, Post Medications (Hazardous/Low Fluid Volume), Starting on 07/28/24 at 2318, For 7 days, Infuse at the same rate as the medication until tubing cleared of medication, then discard. naloxone injection 0.1 mg (Narcan) 0.1 mg, intravenous, Every 5 min PRN, reversal, respiratory depression, For RASS Score -4 or less, respiratory rate of less than 8 breaths/min. Notify provider/service and rapid response team (if available at institution)., Starting on Fri07/28/24 at 2358, For 3 doses naloxone injection 0.2 mg (Narcan) 0.2 mg, intravenous, Once as needed, respiratory depression, Starting on Nora 07/29/24 at 1632, For 1 dose, Intraprocedure (RAD), Administer once if patient has a RASS score of -4, -5 and has a respiratory rate less than 8 breaths/minute. ondansetron (PF) injection (Zofran) (CANCELED) As needed, Starting on Nora 07/29/24 at 1638, Intra-Op 1638 (Given - Provid er: Alexandra Mendoza R.N.)1711 (Given - Provider: Alexandra Mendoza R.N.) ondansetron (PF) injection 4 mg (Zofran) 4 mg, intravenous, Every 6 hours PRN, nausea, vomiting, Starting on Nora 07/29/24 at 0913 0933 (Given - Provid er: Taylor Bentley R.N.) sodium chloride 0.9 % injection 10 mL 10 mL, intravenous, As needed, line care, Peripheral Intravenous Catheter and Rapid Infusion Catheter, Starting on Fri07/28/24 at 2318, Prior to blood sampling, post blood transfusion or post blood sampling. sodium chloride 0.9 % injection 3 mL 3 mL, intravenous, As needed, line care, Peripheral Intravenous Catheter and Rapid Infusion Catheter, Starting on Fri07/28/24 at 2318, Prior to and following infusion and between multiple consecutive infusions. 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
--- OUTSIDE RECORDS SUMMARY | 2024-07-28 23:12 | XMS_ITS | Encounter Summary ---
Author Organization [facility] Address [address] [place] [address] Care Team Providers Care Glass Block Bender Name Role Phone None Reported, Pcp Primary Care Provider Unavail able Reason for Visit * Auth/Cert (Routine) Specialty Diagnoses / Procedures Referred By Contac t Referred To Contact Diagnoses Ulcer Gastric Acute With Perforation (HCC) Abdominal pain post op problem Procedures Inpatient Referral ID Status Reason Start Date Expiration Date Visits Re quested Visits Authorized [id number] 1 1 Encounter Details Date Type Department Care Team (Latest Contact Info) Description 07/28/2024 11:12 PM CDT - Present Hospital Encounter [facility], [facility], [facility], Third Floor [address] [place] [address] Baljit Valentin M.D. [address] [place] [address] Nicotine Dependence Cigarettes With Withdrawal (Primary Dx) Social History Tobacco Use Types Packs/Day Years Used Date Smoking Tobacco: Former Cigarettes Q uit: 07/03/2024 Smokeless Tobacco: Never Tobacco Cessation:Counseling Given: Not Answered [facility] Utilities Answer Date Recorded In the [...] your living situation today? I have a [facility] place to live 07/29/2024 Comments No Sex and Gender Information Value Date Recorded Sex Assigned at Not on file Legal Sex Female 6:31 PM CDT Gender Identity Not on file Sexual Orientation Not on file documented as of this encounter Last Filed Vital Signs Vital Sign Reading Time Taken Comments Blood Pressure 122/65 07/30/2024 12:21 AM CDT Pulse 85 07/30/2024 12:21 AM CDT Temperature 36.9 C (98.4 F) 07/30/2024 12:21 AM CDT Respiratory Rate 15 07/30/2024 12:21 AM CDT Oxygen Saturation 90% 07/30/2024 12:21 AM CDT Inhaled Oxygen Concentration - - Weight 70.9 kg (156 lb 4.9 oz) 07/28/2024 11:20 PM CDT Height 160 cm (5' 3) 07/28/2024 11:20 PM CDT Body Mass Index 27.69 07/28/2024 11:20 PM CDT documented in this encounter Progress Notes * Shaan Li, PharmHildaD., R.Ph., BCPS - 07/29/2024 8:28 AM CDT [...] (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 - 07/29/2024 12:42 PM CDT [facility] 1 ([facility]) Supervisory H&P Note I saw and evaluated the patient, participating in the louis portions of the service. I jointly developed the plan of care as outlined in the [facility] 1 ([facility]) documentation from today with the following comments: Ms. Bertrand is a 49-year-old woman with recent operative intervention of a perforated gastric ulcer atan outside institution who over the last several days has experienced chills, nausea/vomiting with bilious emesis and sharp epigastric pain. She initially presented to an outside hospital, where imaging revealed concerns for a postoperative abscess. On admission here, she has been hemodynamically stable. Laboratory studies most notable for leukocytes 11.3, potassium 3.3, creatinine 0.90, electrolytes essentially normal, lactate 0.8, direct bilirubin slight elevation 0.8, AST 68 and alkaline phosphatase 439. Radiology interpretation of outside read demonstrates new multifocal fluid and gas collections along the anterior wall of the stomach and along the anterior inferior left lobe of the liver, likely due to recurrent perforation, gastric leak and/or superimposed infection. This morning, abdominal pain is stable. She does not currently have an acute abdomen. Nausea/vomiting reasonably well controlled. # Perforated gastric ulcer s/p operative repair elsewhere # Postoperative fluid collections concerning for recurrent perforation, gastric leak and abscess # Nausea/vomiting/abdominal pain # Celiac disease # Elevated alkaline phosphatase # Additional comorbidities as detailed in the Medicine 1 team's notes General surgery consult completed at time of this dictation appreciated with recommendations noted to obtain CT abdomen with oral contrast along with IR drainage. We will plan to send the fluid for cultures. She is currently on metronidazole and ceftriaxone which we will continue. We will also workto obtain her outside hospital summary and operative note. Please refer to T Medicine 1 ([facility]) team's note from today for additional details about our team'splan of care. * Rosa Valle M.D. - 07/29/2024 1:18 [...] placement overnight, the patient was transferred to [facility] for further evaluation and management. 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 * Sylvester Womack M.D., M.S. - 07/29/2024 12:50 AM CDT [facility] Medicine 1 ([facility]) Admission Note SUBJECTIVE CHIEF COMPLAINT: Abdominal Pain [...] She presented to her local hospital in [place] for further evaluation. ED Course: In the [...] local IR availability, patient was transferred to [facility] as a direct admit to internal medicine. [...] / PLAN Ms. Bertrand is hospitalized on [facility] 1 ([facility]) for evaluation and management of epigastric pain [...] CT A/P overread Tx: - Start ceftriaxone (18 - present) - Start metronidazole (18 - present) - Start Protonix 40 mg IV daily Chronic Prior smoking history, will supply 14 mcg nicotine patch VTE prophylaxis: SQH Code status: Full Surrogate Decision Maker: MotherRonna Living Situation Before Admission: Independent Discharge Plan (equipment, therapy, and facility): Pending course, likely returning home without increase in services Plan will be discussed with [facility] Medicine 1 ([facility]) Plow Mechanic, Dr. Valentin,within 24h of admission. Please page the T Medicine 1 ([facility]) service pager at [phone] with any questions. Sylvester Womack M.D., M.Sc. PGY-1, Internal Medicine documented in this encounter Consult Notes * Anabella Blake M.A., C.T.T.S., M.S.W. - 07/29/2024 2:42 PM CDTAssociated Order(s): Nicotine Dependence consult (hospital) SUBJECTIVE Nicotine Dependence consult ([facility]) Referring Provider: Baljit Valentin M.D. REASON FOR CONSULT Admitting Service: Hospital Internal Medicine Reason for Consult: Tobacco Use Disorder HISTORY OF PRESENT ILLNESS Madhavi Bertrand is a 49 y.o. female who was seen at [place] and is being evaluated for tobacco use [...] effects from the nicotine patchin the past. [facility] staff sent a message to the patient's [...] following education materials: My Smoke Free Future (UP5838) and Medications to Help You StopUsing Tobacco (ZU4923) as well as the [facility] contact information. Patient declined to schedule a follow-up appointment, but will receive a follow- up phone call in 30days.. Patient is ready to learn, no apparant barriers to learning were identified. Patient understands and agrees with plan. 25 minutes of our visit was spent on tobacco use disorder counseling. Anabella Blake M.A., Danielle, M.S.W. 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 [1] Past Medical History: Diagnosis Date Celiac [...] M.S., Last Rate: 200 mL/hr at 07/29/24 010, 2 g at 07/29/24 0109 D5W and NaCl 0.45 % infusion, 75 mL/hr, intravenous, Continuous, Chey Carbajal M.D., Last Rate: 75 mL/hr at 07/29/24932, 75 mL/hr at 07/29/24932 D5W infusion, 1-999 mL/hr, intravenous, PRN, Baljit Valentin M.D. HYDROmorphone (PF) injection 0.2 mg (Dilaudid), 0.2 mg, intravenous, Q1H PRN, Sylvester Womack M.D., M.S., 0.2 mg at 07/29/24932 iohexoL (Omnipaque) dilution solution 9 mg iodine/mL, 495-9,000 mg, oral, Once in imaging, Yasmeen Rodriguez, P.A.-C., M.S. iohexoL 300 mg iodine/mL solution 1-200 mL (Omnipaque), 1-200 mL, intravenous, Once in imaging, Yasmeen Rodriguez, P.A.-C., M.S. metroNIDAZOLE in NaCl (iso osm) IVPB 500 mg (FlagyL), 500 mg, intravenous, Q8H, Sylvester Womack M.D., M.S., Last Rate: 200 mL/hr at 07/29/24 0801, 500 mg at 07/29/24 08 NaCl 0.9% infusion, 1-999 mL/hr, intravenous, PRN, [...] 1-100 mL, intravenous, Once, Yasmeen Rodriguez P.A.-C., M.SHilda sodium chloride 0.9 % injection 10 mL, 10 mL, intravenous, PRN, SundstBaljit patel M.D. sodium chloride 0.9 % injection 3 mL, 3 mL, intravenous, PRN, SundstBaljit patel M.D. sodium chloride 0.9 % injection 3 mL, 3 mL, intravenous, Q24H JOSELIN, Baljit Valentin M.D., 3 mL at07/29/24 0801 [...] labs are unremarkable. She [facility] to [facility] for ongoing management. Currently NPO and on [...] Microbiology STAT 07/29/2024 12: 41 AM CDT Bacterial Culture, Aerobic + Susceptibility Microbiology Timed Nicotine Dependence Cigarettes With Withdrawal 07/29/2024 4:30 PM CDT Fungal Culture, Routine Microbiology Timed Nicotine Dependence Cigarettes With Withdrawal 07/29/2024 4:30 PM CDT Fungal Smear Microbiology Timed Nicotine Dependence Cigarettes With Withdrawal 07/29/2024 4:30 PM CDT Scheduled Orders Name Type Priority Associated Diagnoses Order Schedule Bacteria / Ayana Culture, Blood #1 Microbiology STAT STAT for 1 Occurrences starting 07/28/2024 until 07/28/2024 Bacteria / Ayana Culture, Blood #2 Microbiology STAT STAT for 1 Occurrences starting 07/28/2024 until 07/28/2024 Bacterial Culture, Aerobic + Susceptibility Microbiology Timed For man ual release during upcoming procedure for 1 Occurrences starting 07/29/2024 until 07/29/2024 Fungal Culture, Routine Microbiology Timed For manual release during upcoming procedure for 1 Occurrences starting 07/29/2024 until 07/29/2024 Fungal Smear Microbiology Timed For manual release during upcoming procedure for 1 Occurrences starting 07/29/2024 until 07/29/2024 CBC with Differential, Blood Lab Routine [...] and all outpatients) 07/29/2024 5:28 PM CDT GRAM STAIN Timed 07/29/2024 4:30 PM CDT Nicotine Dependence Cigarettes With Withdrawal CT ABDOMEN PELVIS WITH IV CONTRAST RAD [...] 1. Successful CT-guided placement of two 10 Kuwaiti locking loop drainage catheters into the large [...] NEEDLE #1: 19-gauge DRAIN TYPE/SIZE #1: 10 Kuwaiti locking loop drainage catheter. VOLUME OF FLUID ASPIRATED: 80cc purulent yellow fluid removed. Sample sent for cultures. Remainder discarded. APPEARANCE OF ASPIRATE: Purulent yellow fluid. COMPLICATION: None. TARGET LOCATION #2: Anterior left abdominal fluid collection adjacent to the stomach on CT abdomen/pelvis 07/29/2024 series 3 image 63. INTRODUCER NEEDLE: 19-gauge DRAIN TYPE/SIZE #2: 10 Kuwaiti locking loop drainage catheter. VOLUME OF FLUID ASPIRATED: 30 cc purulent yellow fluid removed and discarded. APPEARANCE OF ASPIRATE: Purulent yellow fluid. COMPLICATION: None. TARGET LOCATION #3: Midline subcutaneous/subincisional air and fluid pocket visible on CT abdomen/pelvis 07/29/2024 series 3 image 63. Needle catheter system: 5 Kuwaiti needle catheter system. VOLUME OF FLUID ASPIRATED: [...] NEEDLE #1: 19-gauge DRAIN TYPE/SIZE #1: 10 Kuwaiti locking loop drainage catheter. VOLUME OF FLUID ASPIRATED: 80cc purulent yellow fluid removed. Sample sentfor cultures. Remainder discarded. APPEARANCE OF ASPIRATE: Purulent yellow fluid. COMPLICATION: None. TARGET LOCATION #2: Anterior left abdominal fluid collection adjacent tothe stomach on CT abdomen/pelvis 07/29/2024 series 3 image 63. INTRODUCER NEEDLE: 19-gauge DRAIN TYPE/SIZE #2: 10 Kuwaiti locking loop drainage catheter. VOLUME OF FLUID ASPIRATED: 30 cc purulent yellow fluid removed anddiscarded. APPEARANCE OF ASPIRATE: Purulent yellow fluid. COMPLICATION: None. TARGET LOCATION #3: Midline subcutaneous/subincisional air and fluidpocket visible on CT abdomen/pelvis 07/29/2024 series 3 image 63. Needle catheter system: 5 Kuwaiti needle catheter system. VOLUME OF FLUID ASPIRATED: Air as well as 7 cc purulent yellow fluidaspirated and discarded. APPEARANCE OF ASPIRATE: Purulent yellow fluid. COMPLICATION: None. BLOOD LOSS: None. PATIENT INSTRUCTIONS: Patient may be dismissed from the radiologydepartment when dismissal criteria met. POST-PROCEDURE DIAGNOSIS: Anterior abdominal abscess. IMPRESSION: 1. Successful CT-guided placement of two 10 Kuwaiti locking loop drainagecatheters into the large anterior [...] days forcatheter evaluation. NR James Eric M.D. IMG CT PROCEDURES Final Result * CT Abdomen and/or Pelvis Drain Placement (07/29/2024 5:28 PM CDT) Anatomical Region Laterality Modality Abdominal RST LOS, Procedura l, Vascular Interventional ARZ LOS, Procedure FLA LOS, Procedural NWWI LOS N/A Computed Tomography, Compute d Tomography Impressions 07/29/2024 5:53 PM CDT 1. Successful CT-guided placement of two 10 Kuwaiti locking loop drainage catheters into the large [...] NEEDLE #1: 19-gauge DRAIN TYPE/SIZE #1: 10 Kuwaiti locking loop drainage catheter. VOLUME OF FLUID ASPIRATED: 80cc purulent yellow fluid removed. Sample sent for cultures. Remainder discarded. APPEARANCE OF ASPIRATE: Purulent yellow fluid. COMPLICATION: None. TARGET LOCATION #2: Anterior left abdominal fluid collection adjacent to the stomach on CT abdomen/pelvis 07/29/2024 series 3 image 63. INTRODUCER NEEDLE: 19-gauge DRAIN TYPE/SIZE #2: 10 Kuwaiti locking loop drainage catheter. VOLUME OF FLUID ASPIRATED: 30 cc purulent yellow fluid removed and discarded. APPEARANCE OF ASPIRATE: Purulent yellow fluid. COMPLICATION: None. TARGET LOCATION #3: Midline subcutaneous/subincisional air and fluid pocket visible on CT abdomen/pelvis 07/29/2024 series 3 image 63. Needle catheter system: 5 Kuwaiti needle catheter system. VOLUME OF FLUID ASPIRATED: [...] NEEDLE #1: 19-gauge DRAIN TYPE/SIZE #1: 10 Kuwaiti locking loop drainage catheter. VOLUME OF FLUID ASPIRATED: 80cc purulent yellow fluid removed. Sample sentfor cultures. Remainder discarded. APPEARANCE OF ASPIRATE: Purulent yellow fluid. COMPLICATION: None. TARGET LOCATION #2: Anterior left abdominal fluid collection adjacent tothe stomach on CT abdomen/pelvis 07/29/2024 series 3 image 63. INTRODUCER NEEDLE: 19-gauge DRAIN TYPE/SIZE #2: 10 Kuwaiti locking loop drainage catheter. VOLUME OF FLUID ASPIRATED: 30 cc purulent yellow fluid removed anddiscarded. APPEARANCE OF ASPIRATE: Purulent yellow fluid. COMPLICATION: None. TARGET LOCATION #3: Midline subcutaneous/subincisional air and fluidpocket visible on CT abdomen/pelvis 07/29/2024 series 3 image 63. Needle catheter system: 5 Kuwaiti needle catheter system. VOLUME OF FLUID ASPIRATED: Air as well as 7 cc purulent yellow fluidaspirated and discarded. APPEARANCE OF ASPIRATE: Purulent yellow fluid. COMPLICATION: None. BLOOD LOSS: None. PATIENT INSTRUCTIONS: Patient may be dismissed from the radiologydepartment when dismissal criteria met. POST-PROCEDURE DIAGNOSIS: Anterior abdominal abscess. IMPRESSION: 1. Successful CT-guided placement of two 10 Kuwaiti locking loop drainagecatheters into the large anterior [...] days forcatheter evaluation. NR Tate Meng M.D. IMG CT PROCEDURES Final Res ult * (ABNORMAL) Gram Stain (07/29/2024 4:30 PM CDT) Gram Stain White blood cells, Many(A) 07/29/2024 9:19 PM CDT DTL Gram Stain GRAM POSITIVE BACILLUS Rare (A) 07/29/2024 9:19 PM CDT DTL Comment:Semi-Urgent Result. Gram Stain GRAM POSITIVE COCCI Moderate (A) 07/29/2024 9:19 PM CDT DTL Comment:Semi-Urgent Result. Semi-Urgent This is a semi-urgent result(MARIE) [facility] Fluid (Abdomen) 07/29/2024 4 :30 PM CDT Narrative [facility] - 07/29/2024 9:19 PM CDT Bacterial Culture: Received Bactec aerobic and Bactec anaerobic bottles Tate Meng M.D. LAB MICROBIOLOGY - GENERAL ORDERABLES Final Result [facility] [address] [place] [address], [facility] DTL [facility] [address] [place] [address] * CT Abdomen Pelvis with IV Contrast [...] recurrentgastric ulcer perforation is not entirely excluded. us Tate Meng M.D. IMG CT PROCEDURES Final [...] M.D., M.S. LAB BLOOD ADD-ON Final Result [facility] [address] [place] [address], [facility] [address] [place] [address] * (ABNORMAL) CBC with Differential, Blood (07/29/2024 [...] M.D., M.S. LAB BLOOD ADD-ON Final Result [facility] [address] [place] [address], [facility] [address] [place] [address] * Interpretation of Outside CT Abdomen and [...] performed for further evaluation. Rosa Valle M.D. IMLary CT PROCEDURES Final Result * (ABNORMAL) Prothrombin Time (PT) (07/29/2024 12:44 AM CDT) Prothrombin Time, P 13.9(H) 9.4 - 12.5 sec 07/29/2024 1:02 AM CDT [facility] INR 1.3 0.9 - 1.1 07/29/2024 1:02 AM CDT [facility] Comment: ----ADDITIONAL INFORMATION---- Standard intensity warfarin therapeutic range: 2.0 to 3.0 High intensity warfarin therapeutic range: 2.5 to 3.5 Blood (Blood, Venous) 07/29/2024 12:44 AM CDT 07/29/2024 12:53 AM CDT us Sylvester Womack M.D., M.S. LAB BLOOD ADD-ON Final Result Performing Organization Address City/[facility]/ZIP Co de Phone Number [facility] [address] [place] [address], [facility] [address] [place] [address] * Albumin (07/29/2024 12:44 AM CDT) Albumin, S 3.7 3.5 - 5.0 g/dL 07/29/2024 1:32 AM CDT DT Blood (Blood, Venous) 07/29/2024 12:44 AM CDT 07/29/2024 1:18 AM CDT us Sylvester Womack M.D., M.S. LAB BLOOD ADD-ON Final Result Performing Organization Address [facility] Co de Phone Number [facility] [address] [place] [address], [facility] [address] [place] [address] * Phosphorus Inorganic (07/29/2024 12:44 AM CDT) Phosphorus (Inorganic), P 3.7 2.5 - 4.5 mg/dL 07/29/2024 1:31 AM CDT DTL Blood (Blood, Venous) 07/29/2024 12:44 AM CDT 07/29/2024 1:01 AM CDT us Sylvester Womack M.D., M.S. LAB BLOOD ADD-ON Final Result [facility] [address] [place], [place] [address] [address] [place] [address] * Magnesium (07/29/2024 12:44 AM CDT) Magnesium, P 1.9 1.7 - 2.3 mg/dL 07/29/2024 1:31 AM CDT DTL Blood (Blood, Venous) 07/29/2024 12:44 AM CDT 07/29/2024 1:01 AM CDT Sylvester Womack M.D., M.S. LAB BLOOD ADD-ON Final Result [facility] [address] [place], [place] [address] [place] [address] [address] [place] [address] * (ABNORMAL) Hepatic Function Panel (07/29/2024 12:44 [...] 12:44 AM CDT 07/29/2024 1:19 AM CDT us Sylvester Womack M.D., M.S. LAB BLOOD ADD-ON Final Result Performing Organization Address City/State/[facility] Co de Phone Number [facility] [address] [place] [address], [facility] DTL [facility] [address] [place] [address] * (ABNORMAL) Basic Metabolic Panel (07/29/2024 12:44 [...] M.D., M.S. LAB BLOOD ADD-ON Final Result [facility] [address] [place] [address] * Lactate (07/29/2024 12:43 AM CDT) [facility] Lactate, P 0.8 0.5 - 2.2 mmol/L 07/29/2024 1:37 AM CDT DTL Blood (Blood, Venous) 07/29/2024 12:43 AM CDT 07/29/2024 1:01 AM CDT Sylvester Womack M.D., M.S. LAB BLOOD NON ADD-ON F inal Result [facility] [address] [place] [address], [place] [address] * (ABNORMAL) CBC with Differential, Blood (07/29/2024 12:43 AM CDT) [facility] Hemoglobin 11.4(L) 11.6 - 15.0 g/dL 07/29/2024 [...] 12:43 AM CDT 07/29/2024 12:53 AM CDT Sylvester Womack M.D., M.S. LAB BLOOD ADD-ON Final Result [facility] [address] [place] [address], [facility] STMA [facility] [address] [place] [address] DHPM [facility] [address] [place] [address] documented in this encounter Visit Diagnoses Diagnosis [...] Given 07/29/2024 1:21 AM CDT 650 mg dxkfffpbdbrqw-naubbrihef-rldgegpb in Lipoderm 2%-5%-5% cream 1 g 1 g, topical, 3 times daily, First dose on Fri07/29/24 at 2100 Given 07/29/2024 8:08 PM CDT 1 g cefTRIAXone in dextrose (iso osm) IVPB 2 g (Rocephin) 2 g, intravenous, at 200 mL/hr, Administer over 15 Minutes, Every 24 hours, First dose on Fri07/29/24 at 0030, Drug Monitoring Program: Pharmacist to adjust medication dosing based on indication and drug clearance factors., Indications: Intra-abdominal infection, community acquiredIndications:Intra-abdominal infection, community acquired New Bag 07/30/2024 12:17 AM CDT 2 g 200 mL/hr New Bag 07/29/2024 1:09 AM CDT 2 g 200 mL/hr D5W and NaCl 0.45 % infusion 75 mL/hr, intravenous, Continuous, Starting on Fri07/29/24 at 0900 Restarted 07/29/2024 7:22 PM CDT 75 mL/hr 75 mL/hr New Bag 07/29/2024 9:33 AM CDT 75 mL/hr 75 mL/hr D5W infusion 1-999 mL/hr, intravenous, As needed, Medications Incompatible with 0.9% NaCL, Starting on Fri07/28/24 at 2318, Infuse at the same rate as the piggyback until tubing clears or up to a volume of 20 mL pre and post infusion for medications incompatible with 0.9% NaCL. Use 50 mL bag then discard. HYDROmorphone (PF) injection 0.2 mg (Dilaudid) 0.2 mg, intravenous, Every 1 hour PRN, severe pain or score 7-10 of 10, moderate pain or score 4-6 of 10, Starting on Fri07/28/24 at 2358 Given 07/29/2024 7:26 PM CDT 0.2 mg Given 07/29/2024 9:33 AM CDT 0.2 mg lidocaine 5 % 1 patch (Lidoderm) 1 patch, transdermal, Administer over 12 Hours, Daily, First dose on Fri07/29/24 at 2015, Cut and place around drain for pain control Apply to intact skin for a maximum of 12 hours in a 24-hour period. Medication Applied 07/29/2024 8:09 PM CDT 1 patch Left Lower Abdomen metroNIDAZOLE in NaCl (iso osm) IVPB 500 mg (FlagyL) 500 mg, intravenous, at 200 mL/hr, Administer over 30 Minutes, Every 8 hours, First dose on Nora 07/29/24 at 0030, Drug Monitoring Program: Pharmacist to adjust medication dosing based on indication and drug clearance factors., Indications: Intra-abdominal infection, community acquiredIndications: Intra-abdominal infection, community acquired New Bag 07/29/2024 5:55 PM CDT 500 mg 200 mL/hr New Bag 07/29/2024 8:01 AM CDT [...] on Fri07/28/24 at 2358, For 3 doses nicotine 14 mg/24 hr 1 patch (Nicoderm CQ) 1 patch, transdermal, Administer over 24 Hours, Daily, First dose on Nora 07/29/24 at 0900 Medication Applied 07/29/2024 8:01 AM CDT 1 patch Right Shoulder ondansetron (PF) injection 4 mg (Zofran) 4 mg, intravenous, Every 6 hours PRN, nausea, vomiting, Starting on Nora 07/29/24 at 0913 Given 07/29/2024 9:33 AM CDT 4 mg oxyCODONE IR tablet 5 mg (Roxicodone) 5 mg, oral, Every 4 hours PRN, moderate pain or score 4-6 of 10, severe pain or score 7-10 of 10, Starting on Nora 07/29/24 at 1955 pantoprazole injection 40 mg (Protonix) 40 mg, [...] MAR Action Action Date Dose Rate Site fentaNYL injection 25 mcg (Sublimaze) 25 mcg, [...] Given 07/29/2024 5:03 PM CDT 25 mcg iohexoL (Omnipaque) dilution solution 9 mg iodine/mL [...] intravenous, Once in imaging, contrast, Starting on [facility] 07/29/24 at 1159, For 1 dose, Imaging Protocol Orders, Dose per Radiant Medication Guidelines Given 07/29/2024 4:10 PM CDT 140 mL NaCl 0.9 % bolus 1,000 mL 1,000 mL, intravenous, at 1,000 mL/hr, Administer over 1 Hours, Once, On [facility] 07/29/24 at 0015, For 1 dose New Bag 07/29/2024 12:25 AM CDT 1,000 mL 1000 mL/hr ondansetron (PF) injection (Zofran) As needed, Starting on [facility] 07/29/24 at 1638, Intra-Op Given 07/29/2024 5:11 PM CDT 2 mg Given 07/29/2024 4:38 PM CDT 2 mg sodium chloride (PF) 0.9 % injection 1-100 mL 1-100 mL, intravenous, Once, On [facility] 07/29/24 at 1215, For 1 dose, Imaging Protocol Orders, Dose per Radiant Medication Guidelines Given 07/29/2024 4:10 PM CDT 35 mL documented in this encounter Active and Recently Administered Medications Times are shown in CDT. Scheduled Medication Order 07/28/2024 07/29/2024 07/30/2024 amitriptyline-gabapentin -ketamine in Lipoderm 2%-5%-5% cream 1 g 1 g, topical, 3 times daily, First dose on Nora 07/29/24 at 2100 2007 (Given - Provider: Sandy Romero R.N., [facility]) 0900 (Due)1400 (Due)2100 (Due) cefTRIAXone in dextrose (iso osm) IVPB 2 g (Rocephin) 2 g, intravenous, at 200 mL/hr, Administer over 15 Minutes, Every 24 hours, First dose on Nora 07/29/24 at 0030, Drug Monitoring Program: Pharmacist to adjust medication dosing based on indication and drug clearance factors., Indications: Intra-abdominal infection, community acquired 0109 (New Bag - Provider: Toshia Ladd R.N.) 0017 (New Bag - Provider: Zakiya Penny R.N.) lidocaine 5 % 1 patch (Lidoderm) 1 patch, transdermal, Administer over 12 Hours, Daily, First dose on Nora 07/29/24 at 2015, Cut and place around drain for pain control Apply to intact skin for a maximum of 12 hours in a 24-hour period. 2008 (Medication Applied - Provider: Sandy Romero R.N., [facility]) 0809 (Due: Medication Removed - Provider: Sandy Romero R.N., [facility])0900 (Due) metroNIDAZOLE in NaCl (iso osm) IVPB 500 [...] R.N. - Comment: Patient was in procedure) 0030 (Due)0830 (Due)1630 (Due) NaCl 0.9 % bolus 1,000 mL (COMPLETED) 1,000 mL, intravenous, at 1,000 mL/hr, Administer over 1 Hours, Once, On Nora 6/19/25 at 0015, For 1 dose 0025 (New Bag - Provider: Toshia Ladd R.N.) nicotine 14 mg/24 hr 1 patch (Nicoderm CQ) 1 patch, transdermal, Administer over 24 Hours, Daily, First dose on Nora 07/29/24 at 0900 0801 (Medication Applied - Provider: Taylor Bentley R.N. - Comment: Product saying barcode unreadable. Placed 14mg patch on R shoulder) 0801 (Due: Medication Removed - Provider: Taylor Bentley R.N.)0900 (Due) pantoprazole injection 40 mg (Protonix) 40 mg, intravenous, Every 24 hours scheduled, First dose on Nora 07/29/24 at 0000, Administer IV push over 2 minutes. Add 10 mL NS to 40 mg vial for a final concentration of 4 mg/mL. 2357 (Given - Provider: Toshia Ladd R.N.) 0900 (Due) sodium chloride (PF) 0.9 % injection 1-100 mL (COMPLETED) 1-100 mL, intravenous, Once, On Nora 07/29/24 at 1215, For 1 dose, Imaging Protocol Orders, Dose per Radiant Medication Guidelines 1610 (Given - Provider: Alexandra Mendoza R.N.) sodium chloride 0.9 % injection 3 mL 3 mL, intravenous, Every 24 hours scheduled, First dose on Nora 07/29/24 at 0900, Peripheral Intravenous Catheter and Rapid Infusion Catheter: When no infusion to maintain patency. 0801 (Given - Provider: Taylor Bentley R.N.) 0900 (Due) Continuous Medication Order 07/28/2024 07/29/2024 07/30/2024 D5W and NaCl 0.45 % infusion 75 mL/hr, intravenous, Continuous, Starting on Nora 07/29/24 at 0900 0933 (New Bag - Provider: Tim Bentley R.N.)185 (Stopped - Provider: Taylor Bentley R.N. - Comment: loss of PIV access)192 (Restarted - Provider: Sandy Romero R.N., [facility]) PRN Medication Order 07/28/2024 07/29/2024 07/30/2024 acetaminophen tablet 650 mg (TylenoL) 650 mg, oral, Every 4 hours PRN, mild pain or score 1-3 of 10, moderate pain or score 4-6 of 10, severe pain or score 7-10 of 10, Starting on Nora 07/29/24 at 0115 0121 (Given - Provider: Toshia Ladd R.N.)1457 (Given - Provider: Taylor Bentley R.N.) D5W infusion 1-999 mL/hr, intravenous, As needed, Medications Incompatible with 0.9% NaCL, Starting on 07/28/24 at 2318, Infuse at the same rate as the piggyback until tubing clears or up to a volume of 20 mL pre and post infusion for medications incompatible with 0.9% NaCL. Use 50 mL bag then discard. fentaNYL injection 25 mcg (Sublimaze) (CANCELED) 25 mcg, intravenous, Every 2 min PRN, [...] Intraprocedure (RAD), Subsequent doses 1639 (Given - Provider: Alexandra Mendoza RKieran.)1658 (Given - Provider: Alexandra Mendoza R.N.)1703 (Given - Provider: Lola Ortiz.Ayla.)1710 (Given - Provider: Lola Ortiz.N.)1732 (Given - Provider: Alexandra Mendoza R.N.) HYDROmorphone (PF) injection 0.2 mg (Dilaudid) 0.2 mg, intravenous, Every 1 hour PRN, severe pain or score 7-10 of 10, moderate pain or score 4-6 of 10, Starting on 07/28/24 at 2358 0933 (Given - Provider: Armen Bentley R.N.)1926 (Given - Provider: Sandy Romero R.N., [facility]) iohexoL (Omnipaque) dilution solution 9 mg iodine/mL [...] total mg for documentation. 1453 (Given - Provider: Armen Bentley REverett) iohexoL 300 mg iodine/mL solution 1-200 mL (Omnipaque) (COMPLETED) 1-200 mL, intravenous, Once in imaging, contrast, Starting on Nora 07/29/24 at 1159, For 1 dose, Imaging Protocol Orders, Dose per Radiant Medication Guidelines 1610 (Given - Provider: Alexandra Mendoza RHildaN.) NaCl 0.9% infusion 1-999 mL/hr, intravenous, As [...] on Fri07/28/24 at 2358, For 3 doses ondansetron (PF) injection (Zofran) (CANCELED) As needed, Starting on Nora 07/29/24 at 1638, Intra-Op 1638 (Given - Provider: Alexandra Mendoza RKieran.)1711 (Given - Provider: Alexandra Mendoza R.N.) ondansetron (PF) injection 4 mg (Zofran) 4 mg, intravenous, Every 6 hours PRN, nausea, vomiting, Starting on Nora 07/29/24 at 0913 0933 (Given - Provider: Armen Bentley RHildaNHilda) oxyCODONE IR tablet 5 mg (Roxicodone) 5 mg, oral, Every 4 hours PRN, moderate pain or score 4-6 of 10, severe pain or score 7-10 of 10, Starting on Nora 07/29/24 at 1955 sodium chloride 0.9 % injection 10 mL [...] infusions. documented in this encounter Care Teams Glass Block Bender Relationship Specialty Start Date End Date None Reported, Pcp PCP - General Family Medicine 07/28/24 documented as of this encounter
--- OUTSIDE RECORDS SUMMARY | 2024-07-28 23:35 | XMS_ITS | Encounter Summary ---
Author Organization [facility] Address [address] [place] [address] Care Team Providers Care Tip Cementer Name Role Phone None Reported, Pcp Primary Care Provider Unavail able Encounter Details Date Type Department Care Team ([facility] st Contact Info) Description 07/28/2024 11:35 PM CDT Ancillary Procedure Department of Radiology in [place], [place] [address] [place] [phone] Rosa Valle M.D. [address] [place] [phone] Arrived Social History Tobacco Use Types Packs/Day Years Used Date Smoking Tobacco: Never Assessed [facility] Utilities Answer Date Recorded In the past 12 months has e electric, gas, oil, or water [employer] threatened to shut off services in your [...] money to buy more. Never true 07/30/19 25 Within the past 12 months, t he [...] your living situation today? I have a [facility] place to live 07/29/2024 Comments Unknown Sex and Gender Information Value Date Recorded Sex Assigned at Not on file Legal Sex Female 6:31 PM CDT Gender Identity Not on file Sexual Orientation Not on file documented as of this encounter Plan of Treatment Not on file documented as of this encounter Procedures Procedure Name Priority Date/Time Associated Diagnosis Comments INTERPRETATION OF OUTSIDE CT ABDOMEN AND OR PELVIS RAD - Routine (most inpatients and all outpatients) 07/29/2024 6:06 AM CDT documented in this encounter Results * Interpretation of Outside CT Abdomen and [...] placementcould be performed for further evaluation. Rosa CARRION CT PROCEDURES Final Result documented in this encounter Visit Diagnoses Not on filedocumented in this encounter Care Teams Tip Cementer Relationship Specialty Start Date End Date None Reported, Pcp PCP - General Family Medicine 07/28/24 documented as of this encounter
--- OUTSIDE RECORDS SUMMARY | 2024-07-28 23:35 | XMS_ITS | Encounter Summary ---
Author Organization [facility] Address [address] [place] [address] Care Team Providers Care Manganese Breaker Name Role Phone None Reported, Pcp Primary Care Provider Unavail able Encounter Details Date Type Department Care Team ([facility] st Contact Info) Description 07/28/2024 11:35 PM CDT Ancillary Procedure Department of Radiology in [place], [place] [address] [place] [phone] Rosa Valle M.D. [address] [place] [phone] Arrived Social History Tobacco Use Types Packs/Day Years Used Date Smoking Tobacco: Never Assessed [facility] Utilities Answer Date Recorded In the past 12 months has e electric, gas, oil, or water [employer] threatened to shut off services in your [...] your living situation today? I have a [facility] place to live 07/29/2024 Comments Unknown Sex [...] on filedocumented in this encounter Care Teams Manganese Breaker Relationship Specialty Start Date End Date None Reported, Pcp PCP - General Family Medicine 07/28/24 documented as of this encounter
--- OUTSIDE RECORDS SUMMARY | 2024-07-29 17:58 | XMS_ITS | Clinical Summary ---
Author Organization [facility] Address [address] [place] [address] Care Team Providers Care Director Intelligence Analysis Programs Name Role Phone [facility], [facility] Primary Care [facility] er Michael Franco MD Unavailable [phone] Allergies Active Allergy Reactions Criticality Noted Date [...] gastritis 06/29/2016 Nicotine dependence, unspecified, uncomplicated 06/29/2016 Encounters Date Type Department Care Team Description 07/29/2024 Hospital Encounter [facility] [place] [facility] [address] [phone] Alicia Ribeiro MD 07/28/2024 Documentation Only [facility] - General Medicine & Pediatrics [address] [place] [phone] Alicia Ribeiro MD from Last 3 Months Immunizations Immunization Administration Dates Next Due DT [...] on file Legal Sex Female 3:14 AM 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 Gender Identity Not on file Sexual Orientation [...] (1 of 2) 05/11/2023 COVID-19 VACCINE (3 2023-2 5 season) 2023 01/05/2021, 05/18/2020 PHQ-2 [...] BASIC METABOLIC PANEL STAT 04/19/2010 4:16 PM RECORDIST CHIEF from Last 3 Months or Most Recently Relevant to Health Maintenance Results * Basic metabolic panel (04/19/2010 4:16 PM RECORDIST CHIEF) Sodium 140 133 - 144 mmol/L MISYS [...] - 17 mmol/L MISYS 04/19/2010 4:16 PM RECORDIST CHIEF 04/19/2010 4:10 PM RECORDIST CHIEF us Saul Ceron MD LAB - BLOOD ORDERABLES An gonzales Result MISYS from Last 3 Months or Most Recently Relevant to Health Maintenance Insurance [place] [address] [facility] Care Teams Director Intelligence Analysis Programs Relationship Specialty Start Date End Date [facility] [address], [address] [place] [phone] PCP - General 07/07/19 Michael Franco MD [address] [place] [address] Assigned PCP 07/19/21
--- OUTSIDE RECORDS SUMMARY | 2024-07-29 17:58 | XMS_ITS | Encounter Summary ---
Author Organization [facility] Address [address] [place] [address] Care Team Providers Care Packing Floor Worker Name Role Phone None Reported, Pcp Primary Care Provider Unavail able Reason for Visit * Reason Onset Date Comments NDC Med Request 07/29/2024 Encounter Details Date Type Department Care Team (Latest Contact Info) Description 07/29/2024 Clinical Communication Department of Nicotine Dependence, [facility], in [place], [place] [address] [place] [phone] Anabella Blake M.A., C.T.T.S., M.S.W. [address] [place] [phone] NDC Med Request Social History Tobacco Use Types Packs/Day Years Used Date Smoking Tobacco: Former Cigarettes Q uit: 07/03/2024 Smokeless Tobacco: Never [facility] Utilities Answer Date Recorded In the past 12 months has [facility], gas, oil, or water [employer] threatened to shut off services in your [...] your living situation today? I have a [facility] place to live 07/29/2024 Comments No Sex and Gender Information Value Date Recorded Sex Assigned at Not on file Legal Sex Female 6:31 PM CDT Gender Identity Not on file Sexual Orientation Not on file documented as of this encounter Miscellaneous Notes * Telephone Encounter - Anabella Blake M.A., Danielle, M.S.W. - 07/29/2024 3:29 PM CDT Iveth, this patient expressed interest in having a prescription sent to the [facility] in [place], [place] if appropriate after your review of the patient's medical record. 14 mg nicotine patch 2 mg nicotine gum Please let me know if you have any questions. Thank you. documented in this encounter Plan of Treatment Not on file documented as of this encounter Visit Diagnoses Not on filedocumented in this encounter Care Teams Packing Floor Worker Relationship Specialty Start Date End Date None Reported, Pcp PCP - General Family Medicine 07/28/24 documented as of this encounter
--- OUTSIDE RECORDS SUMMARY | 2024-07-29 17:58 | XMS_ITS | Encounter Summary ---
Author Organization [facility] Address [address] [place] [address] Care Team Providers Care Laboratory Specialist Name Role Phone [facility], [facility] Primary Care [facility] er Michael Franco MD Unavailable [phone] Reason for Visit * Auth/Cert Specialty Diagnoses / Procedures Referred By Contmiri t Referred To Contact EMERGENCY MEDICINE Diagnoses post op abscess from gastric ulcer perforation repair Alicia Ribeiro MD [address] [place] [address] Phone: tel: fax: [facility] Emergency Department [address] [place] [phone] Phone: tel: Referral ID Status Reason Start Date Expiration Date Visits Re quested Visits Authorized [id number] Encounter Details Date Type Department Care Team (Late st Contact Info) Description 07/29/2024 Hospital Encounter [facility] [address] [place] [phone] Alicia Ribeiro MD [address] [place] [phone] Social History Tobacco Use Types Packs/Day Years [...] on file Legal Sex Female 3:14 AM [employer]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
--- OUTSIDE RECORDS SUMMARY | 2024-07-29 17:58 | XMS_ITS | Clinical Summary ---
Author Organization [facility] Address [address] [place] [address] Care Team Providers Care Publishing Manager Name Role Phone None Reported, Pcp Primary Care Provider Unavail able Source Comments Patient records contain information from all sites at [facility]. For routine questions regarding patient records, call [phone] during business hours, M-F 8:00 AM - 5:00 PM Central Time. Record requests for emergency care only can be directed to [phone] at any time.[facility] Allergies Active Allergy Reactions Criticality Noted Date Comments Bee Venom Protein (Honey Bee) Hives only, no other systemic symptoms 07/29/2024 Gluten Other (see comments) 07/29/2024 Vomiting/Diarrhea Medications nicotine (Nicoderm CQ) 7 mg/[address] 1 patch on the skin daily for 30 days. Apply 14 mg patch daily for four to six weeks, then taper to 7 mg for two to six weeks until off. 14 patch 5 5 08/29/19 25 Active nicotine (Nicoderm CQ) 14 mg/24 hr patch Apply 14 mg patch daily for four to six weeks, then taper to 7 mg for two to six weeks until off. 14 patch 3 5 Active nicotine polacrilex (Nicorette) 2 mg gum Chew 1 each (2 mg total) as needed for smoking cessation (Every 1-2 hours as need for cravings and withdrawl symptoms.) for up to 30 days. 100 each 3 5 08/29/19 25 Active pantoprazole (Protonix) 40 mg EC tablet Take 40 mg by mouth daily before morning meal. Suspended Active Problems Problem Noted Date Diagnosed Date Nausea And Vomiting 07/29/2024 Celiac Disease 07/29/2024 Pain Epigastric 07/29/2024 Chronic Or Unspecified Gastric Ulcer With Perfor ation 07/28/2024 Abscess Intra Abdominal 07/28/2024 Ulcer Gastric Acute With Perforation 07/28/2024 Encounters Date Type Department Care Team Description 07/29/2024 Clinical Communication Department of Nicotine Dependence, [facility], in [place], [place] [address] [place] [address] Anabella Blake M.A., C.T.T.S., M.S.W. NDC Med Request 07/28/2024 11:35 PM CDT Ancillary Procedure Department of Radiology in [place], [place] [address] [place] [address] Rosa Valle M.D. Arrived 07/28/2024 11:12 PM CDT - Present Hospital Encounter [facility], [facility], Third Floor [address] [place] [address] Baljit Valentin M.D. Nicotine Dependence Cigarettes With Withdrawal (Primary Dx) from Last 3 Months Social History Tobacco Use Types Packs/Day Years Used Date Smoking Tobacco: Former Cigarettes Q uit: 07/03/2024 Smokeless Tobacco: Never Tobacco Cessation:Counseling Given: Not Answered [facility] [employer] Answer Date Recorded In the past 12 months has [facility] [email or web address], gas, oil, or water [employer] threatened to shut off services in your [...] your living situation today? I have a [facility] place to live 07/29/2024 Comments No [...] Mass Index 27.69 07/28/2024 11:20 PM CDT Plan of Treatment Health Maintenance Due Date Last Done Comments CT Colonography 1973 Cologuard 1973 FIT 1973 HIV Screening 1973 Hepatitis C Screening 1973 Lipid (Cholesterol) Screening 1973 Mammogram 1973 Hepatitis B Vaccines (1 of 3 - 19+ 3-dose series) 1992 DTaP,Tdap,and Td Vaccines (2 - Tdap) 11/09/2002 11/09/1992 Pneumococcal vaccine (50+ years) (1 of 1 - PCV) 05/11/2023 Zoster Vaccines (1 of 2) 05/11/2023 COVID-19 Vaccine (3 - 2023-2 5 season) 2023 01/05/2021, 05/18/2020 Influenza Vaccine (#1) 2023 4, 11/10/2012 Depression Screening (Annual PHQ-2) 02/11/2024 Colonoscopy 07/27/2026 07/27/2016 Colorectal Cancer Screening 07/27/2026 Fasting Glucose for Diabetes Screening 07/30/2027 07/29/2024, 07/29/2024 IPV Vaccines Aged Out No longer eligi ble based on patient's age to complete this topic Procedures * The patient is currently admitted. [...] and all outpatients) 07/29/2024 6:06 AM CDT PROTHROMBIN TIME (PT), P STAT 07/29/2024 12:44 AM CDT ALBUMIN, S/P STAT 07/29/2024 12:44 AM CDT PHOSPHORUS (INORGANIC), S STAT 07/29/2024 12:44 AM CDT MAGNESIUM, S STAT 07/29/2024 12:44 AM CDT HEPATIC FUNCTION PANEL, S STAT 07/29/2024 12:44 AM CDT BASIC METABOLIC PANEL, S/P STAT 07/29/2024 12:44 AM CDT LACTATE, B/P STAT 07/29/2024 12:43 AM CDT CBC WITH DIFFERENTIAL, B STAT 07/29/2024 12:[address] BODY Routine 07/28/2024 3:[address] BODY Routine 07/03/2024 12:25 AM CDT from Last 3 Months Results * CT Abscess or Hematoma or Cyst Aspiration (07/29/2024 5:28 PM CDT) Anatomical Region Laterality Modality Abdominal RST LOS, Vascular Interventional ARZ LOS, Procedural, Procedure FLA LOS, Procedural NWWI LOS N/A Computed Tomogr aphy, Computed Tomography Impressions 07/29/2024 5:53 PM CDT 1. Successful CT-guided placement of two 10 Australian locking loop drainage catheters into the large [...] NEEDLE #1: 19-gauge DRAIN TYPE/SIZE #1: 10 Australian locking loop drainage catheter. VOLUME OF FLUID ASPIRATED: 80cc purulent yellow fluid removed. Sample sent for cultures. Remainder discarded. APPEARANCE OF ASPIRATE: Purulent yellow fluid. COMPLICATION: None. TARGET LOCATION #2: Anterior left abdominal fluid collection adjacent to the stomach on CT abdomen/pelvis 07/29/2024 series 3 image 63. INTRODUCER NEEDLE: 19-gauge DRAIN TYPE/SIZE #2: 10 Australian locking loop drainage catheter. VOLUME OF FLUID ASPIRATED: 30 cc purulent yellow fluid removed and discarded. APPEARANCE OF ASPIRATE: Purulent yellow fluid. COMPLICATION: None. TARGET LOCATION #3: Midline subcutaneous/subincisional air and fluid pocket visible on CT abdomen/pelvis 07/29/2024 series 3 image 63. Needle catheter system: 5 Australian needle catheter system. VOLUME OF FLUID ASPIRATED: [...] NEEDLE #1: 19-gauge DRAIN TYPE/SIZE #1: 10 Australian locking loop drainage catheter. VOLUME OF FLUID ASPIRATED: 80cc purulent yellow fluid removed. Sample sentfor cultures. Remainder discarded. APPEARANCE OF ASPIRATE: Purulent yellow fluid. COMPLICATION: None. TARGET LOCATION #2: Anterior left abdominal fluid collection adjacent tothe stomach on CT abdomen/pelvis 07/29/2024 series 3 image 63. INTRODUCER NEEDLE: 19-gauge DRAIN TYPE/SIZE #2: 10 Australian locking loop drainage catheter. VOLUME OF FLUID ASPIRATED: 30 cc purulent yellow fluid removed anddiscarded. APPEARANCE OF ASPIRATE: Purulent yellow fluid. COMPLICATION: None. TARGET LOCATION #3: Midline subcutaneous/subincisional air and fluidpocket visible on CT abdomen/pelvis 07/29/2024 series 3 image 63. Needle catheter system: 5 Australian needle catheter system. VOLUME OF FLUID ASPIRATED: Air as well as 7 cc purulent yellow fluidaspirated and discarded. APPEARANCE OF ASPIRATE: Purulent yellow fluid. COMPLICATION: None. BLOOD LOSS: None. PATIENT INSTRUCTIONS: Patient may be dismissed from the radiologydepartment when dismissal criteria met. POST-PROCEDURE DIAGNOSIS: Anterior abdominal abscess. IMPRESSION: 1. Successful CT-guided placement of two 10 Australian locking loop drainagecatheters into the large anterior [...] 1. Success[address] CT-guided placement of two 10 Australian locking loop drainage catheters into the large [...] NEEDLE #1: 19-gauge DRAIN TYPE/SIZE #1: 10 Australian locking loop drainage catheter. VOLUME OF FLUID ASPIRATED: 80cc purulent yellow fluid removed. Sample sent for cultures. Remainder discarded. APPEARANCE OF ASPIRATE: Purulent yellow fluid. COMPLICATION: None. TARGET LOCATION #2: Anterior left abdominal fluid collection adjacent to the stomach on CT abdomen/pelvis 07/29/2024 series 3 image 63. INTRODUCER NEEDLE: 19-gauge DRAIN TYPE/SIZE #2: 10 Australian locking loop drainage catheter. VOLUME OF FLUID ASPIRATED: 30 cc purulent yellow fluid removed and discarded. APPEARANCE OF ASPIRATE: Purulent yellow fluid. COMPLICATION: None. TARGET LOCATION #3: Midline subcutaneous/subincisional air and fluid pocket visible on CT abdomen/pelvis 07/29/2024 series 3 image 63. Needle catheter system: 5 Australian needle catheter system. VOLUME OF FLUID ASPIRATED: [...] NEEDLE #1: 19-gauge DRAIN TYPE/SIZE #1: 10 Australian locking loop drainage catheter. VOLUME OF FLUID ASPIRATED: 80cc purulent yellow fluid removed. Sample sentfor cultures. Remainder discarded. APPEARANCE OF ASPIRATE: Purulent yellow fluid. COMPLICATION: None. TARGET LOCATION #2: Anterior left abdominal fluid collection adjacent tothe stomach on CT abdomen/pelvis 07/29/2024 series 3 image 63. INTRODUCER NEEDLE: 19-gauge DRAIN TYPE/SIZE #2: 10 Australian locking loop drainage catheter. VOLUME OF FLUID ASPIRATED: 30 cc purulent yellow fluid removed anddiscarded. APPEARANCE OF ASPIRATE: Purulent yellow fluid. COMPLICATION: None. TARGET LOCATION #3: Midline subcutaneous/subincisional air and fluidpocket visible on CT abdomen/pelvis 07/29/2024 series 3 image 63. Needle catheter system: 5 Australian needle catheter system. VOLUME OF FLUID ASPIRATED: Air as well as 7 cc purulent yellow fluidaspirated and discarded. APPEARANCE OF ASPIRATE: Purulent yellow fluid. COMPLICATION: None. BLOOD LOSS: None. PATIENT INSTRUCTIONS: Patient may be dismissed from the radiologydepartment when dismissal criteria met. POST-PROCEDURE DIAGNOSIS: Anterior abdominal abscess. IMPRESSION: 1. Successful CT-guided placement of two 10 Australian locking loop drainagecatheters into the large anterior [...] M.D., M.S. LAB BLOOD ADD-ON Final Result [facility] [place] [address] [place] [address], [facility] [address] [place] [address] * (ABNORMAL) CBC with Differential, Blood (07/29/2024 8:14 AM CDT) Only the most recent of2 resultswithin the time period is included. Hemoglobin 11.4(L) 11.6 - 15.0 g/dL 07/29/2024 [...] BLOOD ADD-ON Final Result Performing Organization Address City/State/[facility] Co de Phone Number [facility] [place] [address] [place] [address], [facility] [address] [place] [address] * Interpretation of Outside CT Abdomen and [...] performed for further evaluation. Rosa Valle M.D. IM CT PROCEDURES Final Result * (ABNORMAL) Hepatic Function Panel (07/29/2024 12:44 [...] BLOOD ADD-ON Final Result Performing Organization Address City/State/[facility] [place] [address], [place] [address] * (ABNORMAL) Prothrombin Time (PT) (07/29/2024 12:44 [...] BLOOD ADD-ON Final Result Performing Organization Address City/[facility]/ZIP Co de Phone Number [facility] [place] [address] [place], [place] [id number] [place] [address] ST[facility] [address] [place] [address] * Phosphorus Inorganic (07/29/2024 12:44 AM CDT) Phosphorus (Inorganic), P 3.7 2.5 - 4.5 mg/dL 07/29/2024 1:31 AM CDT DTL Blood (Blood, Venous) 07/29/2024 12:44 AM CDT 07/29/2024 1:01 AM CDT Sylvester Womack M.D., M.S. LAB BLOOD ADD-ON Final Result Performing Organization Address City/[facility] Co de Phone Number [facility] [place] [address] [place], [place] [phone] [place] [address] [address] [place] [address] * Magnesium (07/29/2024 12:44 AM CDT) Pathologist [facility] [place] Magnesium, P 1.9 1.7 - 2.3 mg/dL 07/29/2024 1:31 AM CDT DTL Blood (Blood, Venous) 07/29/2024 12:44 AM CDT 07/29/2024 1:01 AM CDT us Sylvester Womack M.D., M.S. LAB BLOOD ADD-ON Final Result Performing Organization Address City/[facility]/ZIP Co de Phone Number [facility] [place] [address] [place], [place] [id number] [place] [address] [address] [place] [address] * Albumin (07/29/2024 12:44 AM CDT) Albumin, S 3.7 3.5 - 5.0 g/dL 07/29/2024 1:32 AM CDT DTL Blood (Blood, Venous) 07/29/2024 12:44 AM CDT 07/29/2024 1:18 AM CDT us Sylvester Womack M.D., M.S. LAB BLOOD ADD-ON Final Result [facility] [place] [address] [place] [address], [facility] DTL [facility] [address] [place] [address] * (ABNORMAL) Basic Metabolic Panel (07/29/2024 12:44 [...] BLOOD ADD-ON Final Result Performing Organization Address [facility] Co de Phone Number [facility] [place] [address] [place] [address] * Lactate (07/29/2024 12:43 AM CDT) Lactate, P 0.8 0.5 - 2.2 mmol/L 07/29/2024 1:37 AM CDT DTL Blood (Blood, Venous) 07/29/2024 12:43 AM CDT 07/29/2024 1:01 AM CDT Sylvester Womack M.D., M.S. LAB BLOOD NON ADD-ON F inal Result Performing Organization Address [facility] de Phone Number [facility] [place] [address] [place] [address] * CT ABDOMEN PELVIS W CON-Outside CT Body (07/28/2024 3:55 PM CDT) Only the most recent of2 resultswithin the time period is included. Narrative [facility] - 07/28/2024 8:31 PM CDT This order has been created and auto-finalized to support the import of outside images. If available, original interpretation can be found on the Media Tab in Chart Review, in Document Viewer, as an image in InfinityView or as an Addendum. If a re-interpretation or overread is required please follow defined workflow. us Provider Not In System IMG CT PROCEDURES Final R esult Performing Organization Address [facility] Co de Phone Number IIMS NA from Last 3 Months Insurance [employer] Advance Directives For more information, please contact: [phone] * Full Code (Latest Code Status on File) Date Activated Date Inactivated Comments 07/28/2024 11:59 PM Question Answer Comments Full Code: Discussed Care Teams Publishing Manager Relationship Specialty Start Date End Date None Reported, Pcp PCP - General Family Medicine 07/28/24
--- OUTSIDE RECORDS SUMMARY | 2024-07-29 17:58 | XMS_ITS | Encounter Summary ---
Author Organization [facility] Address [address] [place] [address] Care Team Providers Care Transaction Advisory Services Manager Name Role Phone [employer], [place] Primary Care Provid er Michael Franco MD Unavailable [phone] Encounter Details Date Type Department Care Team (Late st Contact Info) Description 07/28/2024 Documentation Only [facility] Services - General Medicine & Pediatrics [address] [place] [phone] Alicia Ribeiro MD [address] [place] [address] Social History Tobacco Use Types Packs/Day [...] on file 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 Gender Identity Not on file Sexual Orientation Not on file documented as of this encounter Progress Notes * Alicia Ribeiro MD - 07/28/2024 6:47 PM CDT Transfer Type: [facility] Transfer Triage Note Date of call: 07/28/24 Time of call: 6:47 PM Current Patient Location: [place] Current Level of Care: ED Vitals: BP124/81 HR89 RR18 T99.5 93% RA Diagnosis: Intra-abdominal abscess Reason for requested transfer: Procedure can be done here and not at referring hospital Isolation Needs: None Care everywhere has been updated and reviewed: Yes Necessary images have been sent through PACS: Yes If patient is transferring for specialty care or specific procedure, the specialist required has participated in the transfer call and agreed with need for transfer and anticipated timeline: No Transfer accepted: Yes Stability of Patient: Patient is at risk for instability, however patient requires urgent transfer and does not meet ICU criteria Does the patient require placement on the [facility] of [facility]? Yes. What specific [place] needs are anticipated? IR vs surgery Level of Care Needed: Med Surg Telemetry Needed: None Expected Time of Arrival for Transfer: 8-24 hours Arrival Location: [facility] Recommendations for Management and Stabilization: Not needed Additional Comments: Madhavi Bertrand is a 49 year old female with recent 07/02/24 perforated gastric ulcer s/p repair presenting to ED with vomiting and chills. Mildly tachy to 110s initially though improved with 1L fluids, otherwise VSS. Labs notable for lactate 1.6, WBC 13.7, CRP 31. Initiation CT imaging c/f re-perforation vs abscess. Surgery at referring site felt more likely post-op abscess and would require IR. Started on IV Zosyn. To notify the admitting provider that the patient has arrived at their destination: For [facility]: Identify the correct provider on Amcom: Select HOSPITALIST SERVICE/[place]/ [facility] then find title [facility] ED ADMISSIONS AND INTERNAL [facility] TRANSFERS [[id number]]. Use [employer] to contact the provider listed there. Alicia Ribeiro MD documented in this encounter Plan of Treatment Not on file documented as of this encounter Visit Diagnoses Not on filedocumented in this encounter Care Teams Transaction Advisory Services Manager Relationship Specialty Start Date End Date [employer], [facility] [address], [address] [place] [address] PCP - General 07/07/19 Michael Franco MD [address] [address] Assigned PCP 07/19/21 documented as of this encounter
--- OUTSIDE RECORDS SUMMARY | 2024-07-30 00:30 | XMS_ITS | Encounter Summary ---
Author Organization [facility] Address [address] [place] [address] Care Team Providers Care Industrial Maintenance Instructor Name Role Phone None Reported, Pcp Primary Care Provider Unavail able Reason for Visit * Reason Onset Date Comments NDC Med Request 07/29/2024 Encounter Details Date Type Department Care Team (Latest Contact Info) Description 07/29/2024 Clinical Communication Department of Nicotine Dependence, [facility], in [place], [place] [address] [place] [phone] Anabella Blake M.A., C.T.T.S., M.S.W. [address] [place] [phone] NDC Med Request Social History Tobacco Use Types Packs/Day Years Used Date Smoking Tobacco: Former Cigarettes Q uit: 07/03/2024 Smokeless Tobacco: Never [facility] Utilities Answer Date Recorded In the past 12 months has [facility] [employer], gas, oil, or water [employer] threatened to shut off services in your [...] your living situation today? I have a [facility] place to live 07/29/2024 Comments No [...] in having a prescription sent to the [facility] in [place], [place] if appropriate after your review of the patient's medical record. 14 mg nicotine patch 2 mg nicotine gum Please let me know if you have any questions. Thank you. documented in this encounter Plan of Treatment Not on file documented as of this encounter Visit Diagnoses Not on filedocumented in this encounter Care Teams Industrial Maintenance Instructor Relationship Specialty Start Date End Date None Reported, Pcp PCP - General Family Medicine 07/28/24 documented as of this encounter
--- OUTSIDE RECORDS SUMMARY | 2024-07-30 00:30 | XMS_ITS | Encounter Summary ---
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 Yes. What specific [place] needs are anticipated? IR vs surgery Level of Care Needed: Med Surg Telemetry Needed: None Expected Time of Arrival for Transfer: 8-24 hours Arrival Location: [facility] Recommendations for Management and Stabilization: Not needed [...] patient has arrived at their destination: [facility]: Identify the correct provider on Amcom: [facility]OSPITALIST SERVICE/[place]/ [facility]/ [facility]ULT [facility] then find title [facility] ED ADMISSIONS AND INTERNAL [facility] TRANSFERS [[id number]]. Use [employer] to contact the provider listed there. Alicia Ribeiro MD documented in this encounter Plan of Treatment Not on file documented as of this encounter Visit Diagnoses Not on filedocumented in this encounter Care Teams Head Tennis Coach Relationship Specialty Start Date End Date [facility], [facility] [address], [address] [place] [address] PCP - General 07/07/19 Michael Franco MD [address] [address] Assigned PCP 07/19/21 documented as of this encounter
--- OUTSIDE RECORDS SUMMARY | 2024-07-30 00:30 | XMS_ITS | Clinical Summary ---
Author Organization [place] Address [address] [place] [address] Care Team Providers Care Catering Convention Services Manager Name Role Phone [facility], [facility] Primary Care [facility] er Michael Franco MD Unavailable [phone] Allergies Active Allergy Reactions Criticality Noted Date [...] Department Care Team Description 07/29/2024 Hospital Encounter [facility] [address] [phone] Alicia Ribeiro MD 07/28/2024 Documentation Only [facility] Services - General Medicine & Pediatrics [address] [place] [phone] Alicia Ribeiro MD from Last 3 [...] on file 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 Gender Identity Not on file Sexual Orientation [...] BASIC METABOLIC PANEL STAT 04/19/2010 4:16 PM FULLING MACHINE OPERATOR from Last 3 Months or Most Recently Relevant to Health Maintenance Results * Basic metabolic panel (04/19/2010 4:16 PM FULLING MACHINE OPERATOR) Sodium 140 133 - 144 mmol/L MISYS [...] - 17 mmol/L MISYS 04/19/2010 4:16 PM FULLING MACHINE OPERATOR 04/19/2010 4:10 PM FULLING MACHINE OPERATOR us Saul Ceron MD LAB - BLOOD ORDERABLES An gonzales Result MISYS from Last 3 Months or Most Recently Relevant to Health Maintenance [place] [address] [place] [address] [facility] Care Teams Catering Convention Services Manager Relationship Specialty Start Date End Date [facility] [address], [address] [place] [phone] PCP - General 07/07/19 Michael Franco MD [address] [place] [address] Assigned PCP 07/19/21
--- OUTSIDE RECORDS SUMMARY | 2024-07-30 00:31 | XMS_ITS | Encounter Summary ---
Author Organization [facility] Address [address] [place] [address] Care Team Providers Care Anchorer Name Role Phone [facility] [place], [facility] Primary Care [facility] er Michael Franco MD Unavailable [phone] Reason for Visit * Auth/Cert Specialty Diagnoses / Procedures Referred By Contmiri t Referred To Contact EMERGENCY MEDICINE Diagnoses post op abscess from gastric ulcer perforation repair Alicia Ribeiro MD [address] [place] [address] Phone: tel: fax: [facility] Emergency Department [address] [place] [phone] Phone: tel: Referral ID Status Reason Start Date Expiration Date Visits Re quested Visits Authorized [id number] Encounter Details Date Type Department Care Team (Late st Contact Info) Description 07/29/2024 Hospital Encounter [facility] [address] [place] [address] [phone] Alicia Ribeiro MD [address] [place] [id number] Social History Tobacco Use Types Packs/Day [...] on file 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
--- OUTSIDE RECORDS SUMMARY | 2024-07-30 00:31 | XMS_ITS | Clinical Summary ---
Author Organization [facility] Address [address] [place] [address] Care Team Providers Care Buffing Wheel Former Machine Name Role Phone None Reported, Pcp Primary Care Provider Unavail able Source Comments Patient records contain information from all sites at [facility]. For routine questions regarding patient records, call [phone] during business hours, M-F 8:00 AM - 5:00 PM Central Time. Record requests for emergency care only can be directed to [phone] at any time.[facility] Allergies Active Allergy Reactions Criticality Noted Date [...] 07/29/2024 Clinical Communication Department of Nicotine Dependence, [facility], in [place], [place] [address] [place] [phone] Anabella Blake M.A., C.T.T.S., M.S.W. NDC Med Request 07/28/2024 11:35 PM CDT Ancillary Procedure Department of Radiology in [place], [place] [address] [place] [phone] Rosa Valle M.D. Arrived 07/28/2024 11:12 PM CDT - Present Hospital Encounter [facility], [facility], Third Floor [address] [place] [address] Baljit Valentin M.D. Nicotine Dependence Cigarettes With Withdrawal (Primary Dx) from Last 3 Months Social History Tobacco Use Types Packs/Day Years Used Date Smoking Tobacco: Former Cigarettes Q uit: 07/03/2024 Smokeless Tobacco: Never Tobacco Cessation:Counseling Given: Not Answered [facility] [employer] Answer Date Recorded In the past 12 months has [facility] [employer], gas, oil, or water [employer] threatened to shut off services in your [...] your living situation today? I have a [facility] place to live 07/29/2024 Comments No Sex [...] 1. Successful CT-guided placement of two 10 [place] locking loop drainage catheters into the large [...] NEEDLE #1: 19-gauge DRAIN TYPE/SIZE #1: 10 [place] locking loop drainage catheter. VOLUME OF FLUID ASPIRATED: 80cc purulent yellow fluid removed. Sample sent for cultures. Remainder discarded. APPEARANCE OF ASPIRATE: Purulent yellow fluid. COMPLICATION: None. TARGET LOCATION #2: Anterior left abdominal fluid collection adjacent to the stomach on CT abdomen/pelvis 07/29/2024 series 3 image 63. INTRODUCER NEEDLE: 19-gauge DRAIN TYPE/SIZE #2: 10 [place] locking loop drainage catheter. VOLUME OF FLUID ASPIRATED: 30 cc purulent yellow fluid removed and discarded. APPEARANCE OF ASPIRATE: Purulent yellow fluid. COMPLICATION: None. TARGET LOCATION #3: Midline subcutaneous/subincisional air and fluid pocket visible on CT abdomen/pelvis 07/29/2024 series 3 image 63. Needle catheter system: 5 [place] needle catheter system. VOLUME OF FLUID ASPIRATED: [...] NEEDLE #1: 19-gauge DRAIN TYPE/SIZE #1: 10 [place] locking loop drainage catheter. VOLUME OF FLUID ASPIRATED: 80cc purulent yellow fluid removed. Sample sentfor cultures. Remainder discarded. APPEARANCE OF ASPIRATE: Purulent yellow fluid. COMPLICATION: None. TARGET LOCATION #2: Anterior left abdominal fluid collection adjacent tothe stomach on CT abdomen/pelvis 07/29/2024 series 3 image 63. INTRODUCER NEEDLE: 19-gauge DRAIN TYPE/SIZE #2: 10 [place] locking loop drainage catheter. VOLUME OF FLUID ASPIRATED: 30 cc purulent yellow fluid removed anddiscarded. APPEARANCE OF ASPIRATE: Purulent yellow fluid. COMPLICATION: None. TARGET LOCATION #3: Midline subcutaneous/subincisional air and fluidpocket visible on CT abdomen/pelvis 07/29/2024 series 3 image 63. Needle catheter system: 5 [place] needle catheter system. VOLUME OF FLUID ASPIRATED: Air as well as 7 cc purulent yellow fluidaspirated and discarded. APPEARANCE OF ASPIRATE: Purulent yellow fluid. COMPLICATION: None. BLOOD LOSS: None. PATIENT INSTRUCTIONS: Patient may be dismissed from the radiologydepartment when dismissal criteria met. POST-PROCEDURE DIAGNOSIS: Anterior abdominal abscess. IMPRESSION: 1. Successful CT-guided placement of two 10 [place] locking loop drainagecatheters into the large anterior [...] a few days forcatheter evaluation. NR James CARRION CT PROCEDURES Final Result * CT Abdomen and/or Pelvis Drain Placement (07/29/2024 5:28 PM CDT) Anatomical Region Laterality Modality Abdominal RST LOS, Procedura l, Vascular Interventional ARZ LOS, Procedure FLA LOS, Procedural NWWI LOS N/A Computed Tomography, Compute d Tomography Impressions 07/29/2024 5:53 PM CDT 1. Successful CT-guided placement of two 10 [place] locking loop drainage catheters into the large [...] NEEDLE #1: 19-gauge DRAIN TYPE/SIZE #1: 10 [place] locking loop drainage catheter. VOLUME OF FLUID ASPIRATED: 80cc purulent yellow fluid removed. Sample sent for cultures. Remainder discarded. APPEARANCE OF ASPIRATE: Purulent yellow fluid. COMPLICATION: None. TARGET LOCATION #2: Anterior left abdominal fluid collection adjacent to the stomach on CT abdomen/pelvis 07/29/2024 series 3 image 63. INTRODUCER NEEDLE: 19-gauge DRAIN TYPE/SIZE #2: 10 [place] locking loop drainage catheter. VOLUME OF FLUID ASPIRATED: 30 cc purulent yellow fluid removed and discarded. APPEARANCE OF ASPIRATE: Purulent yellow fluid. COMPLICATION: None. TARGET LOCATION #3: Midline subcutaneous/subincisional air and fluid pocket visible on CT abdomen/pelvis 07/29/2024 series 3 image 63. Needle catheter system: 5 [place] needle catheter system. VOLUME OF FLUID ASPIRATED: [...] NEEDLE #1: 19-gauge DRAIN TYPE/SIZE #1: 10 [place] locking loop drainage catheter. VOLUME OF FLUID ASPIRATED: 80cc purulent yellow fluid removed. Sample sentfor cultures. Remainder discarded. APPEARANCE OF ASPIRATE: Purulent yellow fluid. COMPLICATION: None. TARGET LOCATION #2: Anterior left abdominal fluid collection adjacent tothe stomach on CT abdomen/pelvis 07/29/2024 series 3 image 63. INTRODUCER NEEDLE: 19-gauge DRAIN TYPE/SIZE #2: 10 [place] locking loop drainage catheter. VOLUME OF FLUID ASPIRATED: 30 cc purulent yellow fluid removed anddiscarded. APPEARANCE OF ASPIRATE: Purulent yellow fluid. COMPLICATION: None. TARGET LOCATION #3: Midline subcutaneous/subincisional air and fluidpocket visible on CT abdomen/pelvis 07/29/2024 series 3 image 63. Needle catheter system: 5 [place] needle catheter system. VOLUME OF FLUID ASPIRATED: Air as well as 7 cc purulent yellow fluidaspirated and discarded. APPEARANCE OF ASPIRATE: Purulent yellow fluid. COMPLICATION: None. BLOOD LOSS: None. PATIENT INSTRUCTIONS: Patient may be dismissed from the radiologydepartment when dismissal criteria met. POST-PROCEDURE DIAGNOSIS: Anterior abdominal abscess. IMPRESSION: 1. Successful CT-guided placement of two 10 [place] locking loop drainagecatheters into the large anterior [...] in a few days forcatheter evaluation. NR us Tate Meng M.D. IMG CT PROCEDURES Final Res ult * (ABNORMAL) Gram Stain (07/29/2024 4:30 PM CDT) Gram Stain White blood cells, Many(A) 07/29/2024 9:19 PM CDT DTL Gram Stain GRAM POSITIVE BACILLUS Rare (A) 07/29/2024 9:19 PM CDT DTL Comment:Semi-Urgent Result. Gram Stain GRAM POSITIVE COCCI Moderate (A) 07/29/2024 9:19 PM CDT DTL Comment:Semi-Urgent Result. Semi-Urgent This is a semi-urgent result(MARIE) [facility] Fluid (Abdomen) 07/29/2024 4 :30 PM CDT Narrative [facility] - 07/29/2024 9:19 PM CDT Bacterial Culture: Received Bactec aerobic and Bactec anaerobic bottles us Tate Meng M.D. LAB MICROBIOLOGY - GENERAL ORDERABLES Final Result [facility] [address] [place] [address], [facility] DTL [facility] [address] [place] [address] * CT Abdomen Pelvis with IV Contrast [...] perforation is not entirely excluded. us Tate CostaD. IMG CT PROCEDURES Final Res ult * [...] M.D., M.S. LAB BLOOD ADD-ON Final Result [address] [address] DTL [facility] [address] [place] [address] * (ABNORMAL) CBC with Differential, Blood (07/29/2024 [...] M.D., M.S. LAB BLOOD ADD-ON Final Result [facility] [address] [place] [address], [facility] [address] [place] [address] * Interpretation of Outside CT Abdomen and [...] BLOOD ADD-ON Final Result Performing Organization Address [facility] Co de Phone Number [facility] [address] [place], [place] [address] DTL [facility] [address] [place] [address] * (ABNORMAL) Prothrombin Time (PT) (07/29/2024 12:44 [...] BLOOD ADD-ON Final Result Performing Organization Address [facility] de Phone Number [facility] [address] [place], [place] [address] STMA [facility] [address] [place] [address] * Phosphorus Inorganic (07/29/2024 12:44 AM CDT) Phosphorus (Inorganic), P 3.7 2.5 - 4.5 mg/dL 07/29/2024 1:31 AM CDT DTL Blood (Blood, Venous) 07/29/2024 12:44 AM CDT 07/29/2024 1:01 AM CDT us Sylvester Womack M.D., M.S. LAB BLOOD ADD-ON Final Result Performing Organization Address City/[facility]/ZIP Co de Phone Number [facility] [address] [place] [address] * Magnesium (07/29/2024 12:44 AM CDT) Magnesium, P 1.9 1.7 - 2.3 mg/dL 07/29/2024 1:31 AM CDT DTL Blood (Blood, Venous) 07/29/2024 12:44 AM CDT 07/29/2024 1:01 AM CDT Sylvester Womack M.D., M.S. LAB BLOOD ADD-ON Final Result Performing Organization Address City/[facility] Co de Phone Number [facility] [address] [place] [address] * Albumin (07/29/2024 12:44 AM CDT) Pathologist [facility] Albumin, S 3.7 3.5 - 5.0 g/dL 07/29/2024 1:32 AM CDT DTL Blood (Blood, Venous) 07/29/2024 12:44 AM CDT 07/29/2024 1:18 AM CDT Sylvester Womack M.D., M.S. LAB BLOOD ADD-ON Final Result Performing Organization Address City/[facility]/ZIP Co de Phone Number [facility] [address] [place] [address], [facility] [place] [address] [place] [address] * (ABNORMAL) Basic Metabolic Panel (07/29/2024 12:44 [...] M.D., M.S. LAB BLOOD ADD-ON Final Result [facility] [address] [place] [address], [facility] [address] [place] [address] * Lactate (07/29/2024 12:43 AM CDT) Lactate, P 0.8 0.5 - 2.2 mmol/L 07/29/2024 1:37 AM CDT DTL Blood (Blood, Venous) 07/29/2024 12:43 AM CDT 07/29/2024 1:01 AM CDT us Sylvester Womack M.D., M.S. LAB BLOOD NON ADD-ON F inal Result Performing Organization Address City/[facility] Co de Phone Number [facility] [address] [place] [address], [place] DTL [facility] [address] [place] [address] * CT ABDOMEN PELVIS W CON-Outside CT [...] PROCEDURES Final R esult Performing Organization Address City/[facility] Co de Phone Number [facility] from Last 3 Months Insurance [facility] Advance Directives For more information, please contact: [phone] * Full Code (Latest Code Status on File) Date Activated Date Inactivated Comments 07/28/2024 11:59 PM Question Answer Comments Full Code: Discussed Care Teams Buffing Wheel Former Machine Relationship Specialty Start Date End Date None Reported, Pcp PCP - General Family Medicine 07/28/24
== END 2024-07-28 22:00 | disposition home or self-care (01) ==
PROVIDERS: Visit Provider Family Medicine
DX: T81.49XA Infection following a procedure, other surgical site, initial encounter (principal)
CPT/HCPCS: A0425; A0427

== ENCOUNTER 2024-09-20 12:21 | Outpatient (CLI) | payer OTHER, SELFPAY ==
--- NOTE | 2024-11-16 12:25 | W.PM.SLEEP ---
Sleep Study Details Details Interpreting Provider: Markel Date of Sleep Study: 09/20/24 Sleep Study Details: STUDY TYPE:? Home unattended ? BMI:? 27.81 ORDERING PROVIDER:? Kayleigh INDICATION:? Concern about sleep apnea ? SLEEP SUMMARY:? 588.5 minutes monitored RESPIRATORY SUMMARY:? AHI 15.6 per rule 1A, 10.9 per CMS guideline Low oxygen 79 3.9% of study oxygen less than 90% Snoring 98.8% PERIODIC LIMB MOVEMENTS OF SLEEP:? Not recorded CARDIAC:? Range 51-98, mean 68.6 beats per minute IMPRESSION:? Moderate obstructive sleep apnea RECOMMENDATION: Treatment options include CPAP, dental appliance and/or airway expansion surgery.
== END 2024-09-20 12:22 | disposition home or self-care (01) ==
LOC: SLEEP 12:23
PROVIDERS: PCP Family Medicine; Visit Provider Family Medicine
DX: G47.33 Obstructive sleep apnea (adult) (pediatric) (principal)
CPT/HCPCS: 95806

== ENCOUNTER 2024-10-14 07:45 | Outpatient (CLI) | payer OTHER, SELFPAY | END 2024-10-14 07:46 | disposition home or self-care (01) | LOC: NFLDREF 10-20 07:31 | PROVIDERS: PCP Family Medicine; Referring Provider Family Medicine; Visit Provider Family Medicine | DX: Z13.1 Encounter for screening for diabetes mellitus (principal); Z13.6 Encounter for screening for cardiovascular disorders | CPT/HCPCS: 80061; 82947 ==

== ENCOUNTER 2024-10-19 07:16 | Outpatient (CLI) | payer OTHER, SELFPAY ==
--- NOTE | 2024-10-19 08:16 | P.ANES_ITS ---
Anesthesia Charges Start Date/Time Anesthesia Start Date: 10/19/24 Anesthesia Start Time: 08:02 Stop Date/Time Anesthesia Stop Date: 10/19/24 Anesthesia Stop Time: 08:15 Coding CPT Codes CPT Codes: ANES UPR GI NDSC PX NOS - 76191 ([id number]) P2 - PATIENT W/MILD SYST DISEASE, QK - DIRECTOR REACTOR PROJECTS 2-4 CNCRNT ANES PROC, QX - MANAGER AGENCY SVC W/ MD MED DIRECTION
--- NOTE | 2024-10-19 08:16 | W.ANESCHARGE ---
Anesthesia Charges Start Date/Time Anesthesia Start Date: 10/19/24 Anesthesia Start Time: 08:02 Stop Date/Time Anesthesia Stop Date: 10/19/24 Anesthesia Stop Time: 08:15 Coding CPT Codes CPT Codes: ANES UPR GI NDSC PX NOS - 11847 ([id number]) P2 - PATIENT W/MILD SYST DISEASE, QK - OBSTETRICS AND GYNECOLOGY PROFESSOR 2-4 CNCRNT ANES PROC, QX - INDUSTRIAL MAINTENANCE MANAGER SVC W/ MD MED DIRECTION
--- NOTE | 2024-10-19 08:47 | P.ANES_ITS ---
Anesthesia Charges Start Date/Time Anesthesia Start Date: 10/19/24 Anesthesia Start Time: 08:02 Stop Date/Time Anesthesia Stop Date: 10/19/24 Anesthesia Stop Time: 08:15 Coding CPT Codes CPT Codes: ANES UPR GI NDSC PX NOS - 76594 ([id number]) QK - DIRECTOR OF CORPORATE MARKETING 2-4 CNCRNT ANES PROC, QX - ACCESS RN SVC W/ MD MED DIRECTION, P2 - PATIENT W/MILD SYST DISEASE
--- NOTE | 2024-10-19 08:47 | W.ANESCHARGE ---
Anesthesia Charges Start Date/Time Anesthesia Start Date: 10/19/24 Anesthesia Start Time: 08:02 Stop Date/Time Anesthesia Stop Date: 10/19/24 Anesthesia Stop Time: 08:15 Coding CPT Codes CPT Codes: ANES UPR GI NDSC PX NOS - 12339 ([id number]) QK - CENTRAL LAB TECHNICIAN 2-4 CNCRNT ANES PROC, QX - INSPECTOR PRECISION SVC W/ MD MED DIRECTION, P2 - PATIENT W/MILD SYST DISEASE
== END 2024-10-19 07:17 | disposition home or self-care (01) ==
LOC: OP CLINIC 07:18
PROVIDERS: PCP Family Medicine; Visit Provider Surgery
DX: Z87.11 Personal history of peptic ulcer disease (principal); T81.89XS Other complications of procedures, not elsewhere classified, sequela
CPT/HCPCS: 00731; 43239; 88305; J2704; J3010

== ENCOUNTER 2024-12-07 14:21 | Outpatient (CLI) | payer OTHER, SELFPAY ==
--- NOTE | 2024-12-07 15:00 | CRLHL7_ITS ---
For Patients: As a result of the Century Cures Act, medical imaging exams and procedure reports are released immediately into your electronic medical record. You may view this report before your referring provider. If you have questions, please contact your health care provider. BILATERAL DIGITAL SCREENING MAMMOGRAM WITH COMPUTER-AIDED DETECTION AND TOMOSYNTHESIS CLINICAL HISTORY: Routine screening exam. COMPARISON: None. TECHNIQUE: Digital mammogram in CC and MLO projections including computer-aided detection (CAD). Tomosynthesis was used in this interpretation. BREAST COMPOSITION: There are scattered areas of fibroglandular density. FINDINGS: RIGHT Breast: No suspicious findings. LEFT Breast: Focal asymmetric density within the outer LEFT breast 11 cm from the nipple. IMPRESSION: LEFT breast asymmetry/mass. RECOMMENDATIONS: Additional mammographic views of the LEFT breast including 3D spot compression CC/MLO. LEFT breast ultrasound may also be required. The [facility] will contact the patient. A lay language report of this examination will be provided to the patient. BI-RADS Category 0: Incomplete: Need Additional Imaging Evaluation Dictated by Shaun Zhu MD @ 12/08/2024 12:38:20 PM /Dictated by: Shaun hZu MD @ 12/08/2024 12:38:00 PM (Electronically Signed)
== END 2024-12-07 14:22 | disposition home or self-care (01) ==
LOC: MAMMO 14:22
PROVIDERS: PCP Family Medicine; Visit Provider Family Medicine
DX: Z12.31 Encounter for screening mammogram for malignant neoplasm of breast (principal); N63.20 Unspecified lump in the left breast, unspecified quadrant; R63.5 Abnormal weight gain; R61 Generalized hyperhidrosis
CPT/HCPCS: 77063; 77067; 83001; 84443

== ENCOUNTER 2024-12-07 15:17 | Outpatient (CLI) | payer OTHER, SELFPAY | END 2024-12-07 15:18 | disposition home or self-care (01) | PROVIDERS: PCP Family Medicine; Visit Provider Physician Assistant | DX: R63.5 Abnormal weight gain (principal); R61 Generalized hyperhidrosis | CPT/HCPCS: 83001; 84443 ==

== ENCOUNTER 2024-12-23 08:37 | Outpatient (CLI) | payer OTHER, SELFPAY ==
--- NOTE | 2024-12-23 08:45 | CRLHL7_ITS ---
For Patients: As a result of the Cures Act, medical imaging exams and procedure reports are released immediately into your electronic medical record. You may view this report before your referring provider. If you have questions, please contact your health care provider. DIGITAL DIAGNOSTIC LEFT BREAST MAMMOGRAM WITH TOMOSYNTHESIS CLINICAL HISTORY: LEFT breast mass/asymmetry. COMPARISON: 12/07/2024. TECHNIQUE: Digital LEFT mammogram in 2 projections. Tomosynthesis was used in this interpretation. Real-time ultrasound imaging of LEFT breast with imaging documentation. Scanning was performed by both the technologist and the radiologist. BREAST COMPOSITION: There are scattered areas of fibroglandular density. FINDINGS: 3D spot compression CC/MLO LEFT breast mammogram images submitted. Decreased conspicuity of previously noted asymmetric densities. No architectural distortion. No suspicious calcifications. Targeted LEFT breast ultrasound performed. At 3 o`clock 5 cm from the nipple and 2 o`clock 9 cm from the nipple. There is normal fibroglandular tissue without underlying lesion. Real-time imaging demonstrates normal bands of tissue present without suspicious findings. IMPRESSION: No evidence of malignancy. RECOMMENDATIONS: Routine screening mammography. A lay language report of this examination will be provided to the patient. BI-RADS Category 2. Benign. Dictated by Shaun Zhu MD @ 12/23/2024 10:08:05 AM VANDANA/shruti DW/Dictated by: Shaun Zhu MD @ 12/23/2024 10:08:00 AM (Electronically Signed)
--- NOTE | 2024-12-23 09:15 | CRLHL7_ITS ---
For Patients: As a result of the Century Cures Act, medical imaging exams and procedure reports are released immediately into your electronic medical record. You may view this report before your referring provider. If you have questions, please contact your health care provider. Please see digital diagnostic LEFT breast done same day for combined report. DSM:shruti 12/23/2024 DW/Dictated by: Shaun Zhu MD @ 12/23/2024 10:02:00 AM (Electronically Signed)
== END 2024-12-23 08:38 | disposition home or self-care (01) ==
LOC: MAMMO 08:37
PROVIDERS: PCP Family Medicine; Visit Provider Family Medicine
DX: N63.20 Unspecified lump in the left breast, unspecified quadrant (principal); R92.8 Other abnormal and inconclusive findings on diagnostic imaging of breast
CPT/HCPCS: 76642; 77065; G0279